=== PATIENT | male | born 1960 | race African-American/Black ===

== ENCOUNTER → 2021-02-08 10:14 | Outpatient (CLI) | payer SELFPAY ==
--- NOTE | 2021-02-08 10:16 | CT_ITS ---
PROCEDURE: CT HEART W CALCIUM SCORE CLINICAL HISTORY: diabetes COMPARISON: No exams were available for comparison TECHNIQUE: Axial images obtained with sagittal and coronal reformats. All CT scans at the facility use one or more dose reduction, viz: automated exposure control, ma/kV adjustment per patient size (including targeted exams where dose is matched to indication, i.e. head), or iterative reconstruction technique. FINDINGS: Coronary artery calcium score is forty. Mild calcific plaque burden with moderate cardiovascular disease risk incidental note is made calcified node in the subcarinal region. There are degenerative changes in the thoracic spine. IMPRESSION: Mild calcific plaque burden with moderate cardiovascular disease risk Dictated by: Maciel English MD 03/04/2021 18:56 Maciel English MD in [place] 03/04/2021 18:56
== END ==
PROVIDERS: PCP Family Medicine; Visit Provider Internal Medicine Cardiovascular Disease
DX: Z13.6 Encounter for screening for cardiovascular disorders (principal); E10.9 Type 1 diabetes mellitus without complications
CPT/HCPCS: 75571

== ENCOUNTER → 2021-02-08 10:42 | Outpatient (CLI) | payer OTHER, SELFPAY ==
--- NOTE | 2021-02-08 10:42 | CA_ITS ---
APPROVED REPORT EXAM: Comprehensive 2D, Doppler, and color-flow Echocardiogram Station Tender: Raven Tucker RT(R) Ht: 6 ft 0 in Wt: 270lbs BSA: 2.42 BP: 135/68 mmHg Indications: SOA, HTN, DM, MORROW, hyperlipidemia, TDS due to body habitus 2D Dimensions LVOT 2.14 cm (M/F) 1.5-2.5 M-Mode Dimensions RVDd 2.37 cm (0.9-2.6) LA Diam 2.87 cm (1.9-4.0) LVDd 5.50 cm (3.5-5.7) Ao Diam 2.99 cm (2.0-3.7) LVDs 3.81 cm (3.5-5.7) IVSd 0.88 cm (0.6-1.1) PWd 0.68 cm (0.6-1.1) EF (Teich) 57.70% FS 30.70% EDV (Teich) 147.40 mL ESV (Teich) 62.30 mL Left Ventricle Left atrium is mildly enlarged, left ventricle is normal size, mild concentric left ventricular hypertrophy, visually estimated ejection fraction 55% with no regional wall motion abnormality, diastolic parameters are inconclusive. Right Ventricle Right atrium and right ventricle are normal size and contractility. Aortic valve is grossly normal, there is no aortic stenosis or aortic insufficiency. Mitral Valve Mitral valve is grossly normal, there is trace mitral regurgitation. Tricuspid Valve Tricuspid valve is grossly normal, there is trace tricuspid regurgitation. Tricuspid regurgitation jet velocity is inadequate for calculation of the right ventricular systolic pressure. Pulmonic Valve Pulmonic valve is poorly visualized. Great Vessels Aortic root is normal size. Pericardium No significant pericardial effusion noted. Conclusion 1. Normal left ventricular size, preserved left ventricular systolic function, visually estimated ejection fraction 55% with no regional wall motion abnormality, diastolic parameters are inconclusive. 2. Trace mitral and tricuspid regurgitation. 3. No significant pericardial effusion noted. Electronically signed by : Mark Hebert, 02/09/2021 15:22:39
--- NOTE | 2021-02-08 11:18 | PC.NURSE ---
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
== END ==
PROVIDERS: PCP Family Medicine; Visit Provider Internal Medicine Cardiovascular Disease
DX: R06.00 Dyspnea, unspecified (principal); I10 Essential (primary) hypertension; E78.49 Other hyperlipidemia; E10.9 Type 1 diabetes mellitus without complications; Z79.4 Long term (current) use of insulin
CPT/HCPCS: 93306

== ENCOUNTER → 2022-12-21 10:27 | Outpatient (CLI) | payer OTHER, SELFPAY ==
[2022-12-21 12:09] LABS: NT Pro Brain Natriuretic Pep. 137 pg/mL (0-125)
== END ==
PROVIDERS: PCP Family Medicine; Visit Provider Internal Medicine Cardiovascular Disease
DX: I25.10 Atherosclerotic heart disease of native coronary artery without angina pectoris (principal); R79.89 Other specified abnormal findings of blood chemistry
CPT/HCPCS: 36415; 83880

== ENCOUNTER 2024-10-14 17:34 | Observation (INO) | payer OTHER, SELFPAY ==
--- NOTE | 2024-10-14 17:34 | CT_ITS ---
PROCEDURE INFORMATION: Exam: CT Cervical Spine Without Contrast Exam date and time: 10/14/2024 6:42 PM Age: 64 years old Clinical indication: Weakness; Additional info: Found down , hypoglycemic confused, TECHNIQUE: Imaging protocol: Computed tomography of the cervical spine without contrast. Radiation optimization: All CT scans at this facility use at least one of these dose optimization techniques: automated exposure control; mA and/or kV adjustment per patient size (includes targeted exams where dose is matched to clinical indication); or iterative reconstruction. COMPARISON: CT HEAD/BRAIN WO CON 10/14/2024 6:42 PM FINDINGS: Bones: Cervical vertebrae normal in height. No acute fracture. Right lateral tilt. Straightening of normal cervical lordosis. Maintained craniocervical junction. Multilevel degenerative changes. No severe neural foraminal narrowing or spinal canal stenosis. Lungs: Lung apices are normal. Vasculature: Bilateral carotid artery calcifications. Soft tissues: Unremarkable. IMPRESSION: No acute osseous findings.
--- NOTE | 2024-10-14 17:34 | CT_ITS ---
PROCEDURE INFORMATION: Exam: CTA Neck With Contrast Exam date and time: 10/14/2024 6:45 PM Age: 64 years old Clinical indication: Dizziness and giddiness; Additional info: Found down , hypoglycemic confused, TECHNIQUE: Imaging protocol: Computed tomographic angiography of the neck with contrast. Exam focused on the cervical segments of the vasculature. 3D rendering (Not supervised by radiologist): MIP and/or 3D reconstructed images were created by the technologist. Radiation optimization: All CT scans at this facility use at least one of these dose optimization techniques: automated exposure control; mA and/or kV adjustment per patient size (includes targeted exams where dose is matched to clinical indication); or iterative reconstruction. Contrast material: ISO 370; Contrast volume: 80 ml; Contrast route: INTRAVENOUS (IV); COMPARISON: CT CERVICAL SPINE WO CON 10/14/2024 6:42 PM FINDINGS: Right common carotid artery: Mild atherosclerotic narrowing of the distal segment and carotid bulb without flow-limiting stenosis. No dissection or occlusion. Right internal carotid artery: Mild stenosis of the proximal cervical segment. No dissection or occlusion. Right external carotid artery: Atherosclerosis at the origin without significant stenosis. Left common carotid artery: Mild atherosclerotic narrowing of the distal segment and carotid bulb without flow-limiting stenosis. No dissection or occlusion. Left internal carotid artery: Mild stenosis of the proximal cervical segment. No dissection or occlusion. Left external carotid artery: Mild stenosis at the origin. Right vertebral artery: Mild atherosclerosis of the origin without flow-limiting stenosis. No dissection or occlusion. Left vertebral artery: Dense calcified atherosclerosis at the origin contributing to probable severe stenosis. No dissection or occlusion. Soft tissues: No significant soft tissue swelling. Bones/joints: No acute fracture. Cervical spondylosis. IMPRESSION: 1. Mild bilateral internal carotid artery proximal cervical segment stenosis. 2. Dense calcified atherosclerosis at the left vertebral artery origin contributing to probable severe stenosis. REFERENCES: NASCET CRITERIA. The degree of stenosis in the cervical segment of the internal carotid artery is based on NASCET criteria. Normal is no stenosis. Mild is less than 50% stenosis. Moderate is 50-69% stenosis. Severe is 70% to 99% stenosis. Total occlusion is no detectable patent lumen.
--- NOTE | 2024-10-14 17:34 | CT_ITS ---
PROCEDURE INFORMATION: Exam: CTA Head With Contrast, Arteriography Exam date and time: 10/14/2024 6:45 PM Age: 64 years old Clinical indication: Dizziness and giddiness; Additional info: Found down , hypoglycemic confused, TECHNIQUE: Imaging protocol: Computed tomographic angiography of the head with contrast. Exam focused on the arteries. 3D rendering (Not supervised by radiologist): MIP and/or 3D reconstructed images were created by the technologist. Radiation optimization: All CT scans at this facility use at least one of these dose optimization techniques: automated exposure control; mA and/or kV adjustment per patient size (includes targeted exams where dose is matched to clinical indication); or iterative reconstruction. Contrast material: ISO 370; Contrast volume: 80 ml; Contrast route: INTRAVENOUS (IV); COMPARISON: CT ANGIO HEAD 10/14/2024 6:45 PM FINDINGS: ANTERIOR CIRCULATION: Right internal carotid artery: Mild atherosclerotic narrowing of the intracranial segment without flow-limiting stenosis. No aneurysm. Right middle cerebral artery: No occlusion or significant stenosis. No aneurysm. Right anterior cerebral artery: No occlusion or significant stenosis. No aneurysm. Left internal carotid artery: Mild atherosclerotic narrowing of the intracranial segment without flow-limiting stenosis. No aneurysm. Left middle cerebral artery: No occlusion or significant stenosis. No aneurysm. Left anterior cerebral artery: No occlusion or significant stenosis. No aneurysm. POSTERIOR CIRCULATION: Right vertebral artery: No occlusion or significant stenosis. No aneurysm. Left vertebral artery: No occlusion or significant stenosis. No aneurysm. Basilar artery: No occlusion or significant stenosis. No aneurysm. Right posterior cerebral artery: No occlusion or significant stenosis. No aneurysm. Left posterior cerebral artery: No occlusion or significant stenosis. No aneurysm. Brain: No definite mass, mass effect, or midline shift. Cerebral ventricles: No ventriculomegaly. Bones/joints: Unremarkable. No acute fracture. Soft tissues: Unremarkable. IMPRESSION: No large vessel stenosis or occlusion.
--- NOTE | 2024-10-14 17:34 | CT_ITS ---
PROCEDURE INFORMATION: Exam: CTA Chest With Contrast Exam date and time: 10/14/2024 6:48 PM Age: 64 years old Clinical indication: Other: Hypoglycemic; Additional info: Found down , hypoglycemic confused, TECHNIQUE: Imaging protocol: Computed tomographic angiography of the chest with contrast. Exam focused on the arteries. 3D rendering (Not supervised by radiologist): MIP and/or 3D reconstructed images were created by the technologist. Radiation optimization: All CT scans at this facility use at least one of these dose optimization techniques: automated exposure control; mA and/or kV adjustment per patient size (includes targeted exams where dose is matched to clinical indication); or iterative reconstruction. Contrast material: ISOVUE 370; Contrast volume: 80 ml; Contrast route: INTRAVENOUS (IV); COMPARISON: CT ANGIO ABDOMEN PELVIS 10/14/2024 6:48 PM FINDINGS: Pulmonary arteries: There is suboptimal opacification of pulmonary arteries due to contrast bolus timing. Focal embolus involving the right middle and lower lobe pulmonary arteries. Aorta: Unremarkable. No aortic aneurysm. No aortic dissection. Lungs: Atelectasis posteriorly right upper lobe. Minimal biapical pleural reactive changes. Pleural spaces: Unremarkable. No pneumothorax. No pleural effusion. Heart: Unremarkable. No cardiomegaly. No pericardial effusion. Heart RV/LV ratio: : 0.81 Lymph nodes: Unremarkable. No enlarged lymph nodes. Liver: Decreased density throughout the liver compatible with hepatic steatosis. Bones/joints: Unremarkable. No acute fracture. Soft tissues: Unremarkable. IMPRESSION: 1. Focal embolus involving the right middle and lower lobe pulmonary arteries. 2. Atelectasis posteriorly right upper lobe. Minimal biapical pleural reactive changes. 3. A call has been placed the referring physician at which time an addended report will be issued.
--- NOTE | 2024-10-14 17:34 | CT_ITS ---
PROCEDURE INFORMATION: Exam: CT Head Without Contrast Exam date and time: 10/14/2024 6:42 PM Age: 64 years old Clinical indication: Altered mental status/memory loss; Additional info: Found down , hypoglycemic confused, TECHNIQUE: Imaging protocol: Computed tomography of the head without contrast. Radiation optimization: All CT scans at this facility use at least one of these dose optimization techniques: automated exposure control; mA and/or kV adjustment per patient size (includes targeted exams where dose is matched to clinical indication); or iterative reconstruction. COMPARISON: CT CERVICAL SPINE WO CON 10/14/2024 6:42 PM FINDINGS: Brain: No acute intracranial hemorrhage, midline shift or mass effect. Normal hypodensities within the cerebral white matter most consistent with chronic small-vessel ischemic changes. Cerebral ventricles: No ventriculomegaly. Paranasal sinuses: Mild scattered mucosal thickening Mastoid air cells: Visualized mastoid air cells are well aerated. Bones: Unremarkable. No acute fracture. Soft tissues: Unremarkable. IMPRESSION: No acute intracranial findings.
--- NOTE | 2024-10-14 17:36 | ECG_ITS ---
APPROVED REPORT Exam: Resting ECG HR:86 bpm ECG Measurements Heart Rate 86 AXES WI 170 P 78 QRSd 102 QRS 78 QT 376 T 63 QTc 420 Conclusion SINUS RHYTHM POSSIBLE RIGHT ATRIAL ENLARGEMENT [0.25mV P-WAVE] Electronically signed by : JOSH RODRIGUEZ, 10/14/2024 23:50:24
--- NOTE | 2024-10-14 17:36 | CT_ITS ---
PROCEDURE INFORMATION: Exam: CTA Abdomen and Pelvis With Contrast Exam date and time: 10/14/2024 6:48 PM Age: 64 years old Clinical indication: Other: Hypoglycemic; Additional info: Found down , hypoglycemic confused, TECHNIQUE: Imaging protocol: Computed tomographic angiography of the abdomen and pelvis with contrast. Exam focused on the arteries. 3D rendering (Not supervised by radiologist): MIP and/or 3D reconstructed images were created by the technologist. Radiation optimization: All CT scans at this facility use at least one of these dose optimization techniques: automated exposure control; mA and/or kV adjustment per patient size (includes targeted exams where dose is matched to clinical indication); or iterative reconstruction. Contrast material: ISOVUE 370; Contrast volume: 80 ml; Contrast route: INTRAVENOUS (IV); COMPARISON: No relevant prior studies available. FINDINGS: Aorta: No aortic aneurysm. No aortic dissection. Celiac trunk and mesenteric arteries: No occlusion or significant stenosis. Renal arteries: No occlusion or significant stenosis. Right iliac arteries: No occlusion or significant stenosis. Left iliac arteries: No occlusion or significant stenosis. Liver: Decreased density throughout the liver compatible with hepatic steatosis. Gallbladder and biliary ducts: Gallbladder unremarkable Pancreas: Pancreas unremarkable small hiatal hernia Spleen: The spleen is unremarkable. Splenic granulomas Adrenal glands: Adrenal glands unremarkable. Kidneys and ureters: No hydronephrosis. Stomach and bowel: Mild gastric wall thickening. Findings may be secondary to incomplete distension versus gastritis. Mild-moderate stool burden Appendix: No evidence of appendicitis. Intraperitoneal space: Unremarkable. No free air. No significant fluid collection. Lymph nodes: Unremarkable. No enlarged lymph nodes. Urinary bladder: Unremarkable. No mass. Reproductive: Unremarkable as visualized. Bones/joints: No acute fracture. Soft tissues: Unremarkable. IMPRESSION: No evidence of acute abnormality.
[2024-10-14 17:47] LABS: VBG Base Excess 5.2 mmol/L (-2.4-2.3); VBG HCO3 29.4 mmol/L (23-30); VBG Oxygen Saturation 97.2 % (50-70); VBG PCO2 44.7 mmol/L (35-51); VBG PH 7.44 mmol/L (7.31-7.41); VBG PO2 92.8 mmol/L (28-40); VBG Total CO2 30.8 mmol/L (23-27)
[2024-10-14 17:49] VITALS: PULSE 86; RESP 24; TEMP 36.9; O2SAT 98; BMI 33.5
[2024-10-14 17:50] LABS: Basophils # 0.1 K/mm3 (0-0.2); Basophils % 0.4 % (0.1-2.0); Eosinophils # 0.2 K/mm3 (0.0-0.4); Eosinophils % 1.3 % (0.1-12.0); Hematocrit 45.1 % (42.0-52.0); Hemoglobin 14.4 g/dL (14.1-18.0); Lymphocytes # 0.8 K/mm3 (0.7-4.5); Lymphocytes % 5.2 % (10-50); Mean Corpuscular HGB Conc 31.8 g/dL (31.8-35.4); Mean Corpuscular Hemoglobin 32.6 pg (27.0-31.2); Mean Corpuscular Volume 102.4 fl (80-94); Monocytes # 0.5 K/mm3 (0.1-1.0); Monocytes % 3.4 % (1.7-9.3); Neutrophils # 13.8 K/mm3 (1.8-7.8); Neutrophils % 89.8 % (37.0-80.0); Platelet Count 469 K/mm3 (142-424); Red Blood Count 4.41 M/mm3 (4.60-6.20); Red Cell Distribution Width 13.8 % (11.5-17.5); White Blood Count 15.4 K/mm3 (4.8-10.8)
[2024-10-14 17:57] LABS: MANUAL DIFFERENTIAL MANUAL DIFFERENTIAL (MANUAL DIFF)
--- NOTE | 2024-10-14 17:58 | HMH.EDGENADL ---
Discharge Plan Disposition Patient Disposition: Admitted Chief Complaint: Hyper/Hypoglycemia Clinical Impressions Clinical Impression: Pulmonary emboli, Hypoglycemia Discharge ED Provider: Palomo Bedoya General Adult HPI General Chief complaint: Hyper/Hypoglycemia Stated complaint: hypoglycemia Time Seen by Provider: 10/14/24 17:39 Mode of Arrival: EMS Source of Information: Patient and EMS Limitations: No Limitations Description of Symptoms (Recalled from ER Triage Doc. by RN): EMS reports they were called out as a wellfare check because family could not reach him. pts last known norm was sometime last night when family spoke to him. on EMS arrival pts FSBG was 50. pt had snoring respirations and was placed on a NR. pts FSBG read low upon arrival here. Upon arrival pt was on a nonrebreather and was minimally responsive but he was able to give a thumbs up on command. pt received glucagon GAS WORKER. After establishing IV access and giving an amp of D50 pt became A&O x4. pt states he does not recall the events. pts states he has no complaints and feels at his baseline. pt denies any pain. pt states he is a daily 2-3 beer drinker. History of Present Illness HPI narrative: Please note that above description of symptoms, in this electronic medical record under categorization of recalled from ER triage doctor by RN are reflective of an initial nursing assessment, however, is not reflective of my full history and physical exam that was personally taken and clarified. Consequentially, this preceding description of symptoms, which may include the patient's categorized chief complaint in the EMR, do not reflect my personal clinical impression, and the ultimate description of history of present illness and patient stated complaints should be deferred to this section of the note. Unless stated otherwise or congruent with this section of the note, additional signs, symptoms, or incongruence should be interpreted as inaccurate with my clinical impression. Related Data Home Medications ?Medication ?Instructions ?Recorded ?Confirmed amlodipine 5 mg-valsartan 160 mg 1 tab PO DAILY 01/26/21 02/01/23 tablet insulin detemir U-100 100 unit/mL 45 unit SQ DAILY 01/26/21 02/01/23 (3 mL) subcutaneous pen metolazone 2.5 mg tablet 2.5 mg PO DAILY 01/26/21 02/01/23 metoprolol succinate 100 mg 100 mg PO DAILY 01/26/21 02/01/23 tablet,extended release 24 hr niacin 500 mg tablet,extended 500 mg PO DAILY 01/26/21 02/01/23 release potassium chloride 20 mEq 20 meq PO TID 01/26/21 02/01/23 tablet,extended release(part/cryst) rosuvastatin 40 mg tablet 40 mg PO DAILY 01/26/21 02/01/23 furosemide 20 mg tablet 20 mg PO DAILY 12/21/22 02/01/23 Previous Rx's ?Medication ?Instructions ?Recorded aspirin 81 mg tablet,delayed 81 mg PO DAILY #30 tabs 05/05/21 release (Adult Low Dose Aspirin) triamterene 37.5 See Rx Instructions .Route 12/12/22 mg-hydrochlorothiazide 25 mg tablet .COMPLEX #90 tabs Allergies Allergy/AdvReac Type Severity Reaction Status Date / Time NO KNOWN ALLERGIES Allergy Other Uncoded 10/14/24 18:02 [facility] Disclaimer: The information contained in this section may have been updated after the patient was seen, as this information can be updated by other users. Medical History Coronary artery disease Daytime somnolence Diabetes type I Dyspnea HLD (hyperlipidemia) HTN (hypertension) Restless sleeper Social History Smoking Status: Never smoker alcohol intake: current alcohol intake frequency: holidays/special occasions only substance use type: denies use current occupational status: employed and disabled Travel in the last 8 weeks: Inside the [place] Other Medical History Have you received the Pneumonia Vaccine: No ROS Obtained: Yes All systems reviewed & no additional complaints except as documented Physical Exam General General appearance: alert, in distress and obese Head Head exam: atraumatic and normocephalic Eye Eye exam: Present normal appearance, PERRL and EOMI ENT ENT exam: Present mucous membranes dry Neck Neck exam: Present normal inspection, full ROM and trachea midline Respiratory Respiratory exam: Present wheezes (Inspiratory wheezes bilateral lower lobes); Absent respiratory distress, stridor, accessory muscle use or prolonged expiratory phase Cardiovascular Cardiovascular exam: Present normal rhythm, tachycardia and other (Pulses equal symmetric in upper and lower extremities) Abdominal Exam Abdominal exam: Present soft; Absent distention, tenderness, guarding, rebound or pulsatile mass Extremities Exam Extremities exam: Present edema (2+ lower extremity pitting edema) Neurological Exam Neurological exam: Present alert, oriented X3 and CN II-XII intact; Absent motor sensory deficit Skin Skin exam: Present warm and dry; Absent diaphoresis or erythema Medical Decision Making Medical Records Medical records reviewed: Yes I reviewed the patient's medical records. Screening: Per USPSTF and CDC recommendations, given the prevalence of disease in our region, it is our hospital?s policy to screen for HIV and viral Hepatitis for all patients aged 18 and over and those with ongoing risk factors. Jamel Inquiry Pt receiving controlled substance: No Jamel was queried for this patient: No Vital Signs: 10/14/24 17:49 Temperature 98.5 F Temperature Source Oral Pulse Rate [Left] 86 Respiratory Rate 24 Blood Pressure Source [Right Arm] Automatic Cuff Blood Pressure Position [Right Arm] Sitting 02 Sat by Pulse Oximetry 98 Oxygen Delivery Method Room Air Lab Data Lab Results 10/14/24 17:36: WBC 15.4 H, RBC 4.41 L, Hgb 14.4, Hct 45.1, MCV 102.4 H, MCH 32.6 H, MCHC 31.8, RDW 13.8, Plt Count 469 H, MPV 7.0 L, Neut % (Auto) 89.8 H, Lymph % (Auto) 5.2 L, Barren % (Auto) 3.4, Eos % (Auto) 1.3, Baso % (Auto) 0.4, Neut # (Auto) 13.8 H, Lymph # (Auto) 0.8, Barren # (Auto) 0.5, Eos # (Auto) 0.2, Baso # (Auto) 0.1, Total Counted 100, Neutrophils % (Manual) 91 H, Lymphocytes % (Manual) 5 L, Monocytes % (Manual) 4, Platelet Estimate Normal, Anisocytosis 2+, Microcytosis 1+, Macrocytosis 2+, Target Cells 1+, PT 9.8 L, INR 0.86 L, APTT 23.7 10/14/24 17:36: APTT 24.5 L, Sodium 136, Potassium 3.5, Chloride 100, Carbon Dioxide 30, Anion Gap 9.5, BUN 12, Creatinine 0.80, Estimated Creat Clear 123, Estimated GFR 98, Est GFR ( Amer) 118, Glucose 175 H, Hemoglobin A1c 6.5 H, Calcium 9.0, Magnesium 1.7, Total Bilirubin 0.7, AST 76 H, ALT 47, Alkaline Phosphatase 105, Total Creatine Kinase 248 H, Troponin I < 0.01, NT-Pro-B Natriuret Pep 813 H, Total Protein 5.7 L, Albumin 3.3 L, Globulin 2.4, Albumin/Globulin Ratio 1.4, Lipase 39, TSH 0.92, Thyroxine (T4) 6.3, Salicylates < 1.0 L, Acetaminophen < 10 L, Plasma/Serum Alcohol 15 H, Acetone Level None detected, HIV 1&2 Antibody Rapid Nonreactive 10/14/24 17:37: VBG pH 7.44 H, VBG pCO2 44.7, VBG pO2 92.8 H, VBG HCO3 29.4, VBG Total CO2 30.8 H, VBG O2 Saturation 97.2 H, VBG Base Excess 5.2 H, VBG Lactic Acid 2.0 10/14/24 17:48: Blood Type B Positive, Antibody Screen Negative 10/14/24 17:58: Lactate 1.3 10/14/24 18:16: Urine Color Yellow, Urine Appearance Clear, Urine pH 6.5, Ur Specific [place] 1.020, Urine Protein Negative, Urine Glucose (UA) 1+, Urine Ketones Trace, Urine Blood Negative, Urine Nitrate Negative, Urine Bilirubin Negative, Urine Urobilinogen 1.0, Ur Leukocyte Esterase Negative, Urine RBC Occasional, Urine WBC 3-5, Ur Squamous Epith Cells 20-50, Urine Bacteria 2+, Urine Mucus 1+, Urine Opiates Screen Negative, Urine Methadone Screen Negative, Ur Barbituates Screen Negative, Ur Phencyclidine Scrn Negative, Ur Amphetamines Screen Negative, U Benzodiazepines Scrn Negative, Urine Cocaine Screen Negative, U Marijuana (THC) Screen Negative 10/14/24 19:40: SARS-CoV-2 (PCR) Not detected, Influenza A Untype (PCR) Not detected, Influenza Type B (PCR) Not detected 10/14/24 17:36 10/14/24 17:36 Orders (Tests/Meds): ED MEDICATIONS Generic Name Dose Route Start Last Admin Trade Name Freq PRN Reason Stop Dose Admin Dextrose/Water 500 mls @ 100 mls/hr 10/14/24 18:00 Dextrose 10% In Water 500ml IV 11/13/24 17:59 .Q5H HUANG Heparin Sodium/Dextrose 500 mls @ 40 mls/hr 10/14/24 20:15 10/14/24 20:13 Heparin 25,000 Units In D5w 500ml Premix IV 11/13/24 20:14 40 mls/hr .[id number] HUANG Administration 2,000 UNITS/HR Miscellaneous 1 each 10/14/24 17:45 Vancomycin Consult Request NOTAPPLIC 11/13/24 17:44 [facility] Miscellaneous 1 each 10/14/24 19:45 Heparin Drip Consult NOTAPPLIC 11/13/24 19:44 [facility] Discontinued Medications Generic Name Dose Route Start Last Admin Trade Name Freq PRN Reason Stop Dose Admin Heparin Sodium (Porcine) 9,200 unit 10/14/24 20:15 10/14/24 20:14 Heparin Sodium 5,000 Unit/Ml Vial IV 10/14/24 20:16 9,200 unit ONCE ONE Administration Ampicillin Sodium/Sulbactam 100 mls @ 200 mls/hr 10/14/24 17:38 10/14/24 18:39 Sodium 3 gm/ Sodium Chloride IV 10/14/24 17:39 200 mls/hr ONCE ONE Administration Lactated Ringer's 2,000 mls @ 1,000 mls/hr 10/14/24 17:58 10/14/24 18:33 Lactated Ringer's 1000 Ml Bag IV 10/14/24 19:57 1,000 mls/hr .Q2H ONE Administration Vancomycin HCl 2,250 mg/ 250 mls @ 125 mls/hr 10/14/24 18:15 10/14/24 20:07 Sodium Chloride IV 10/14/24 20:14 125 mls/hr ONCE ONE Administration Iopamidol 160 ml 10/14/24 18:48 10/14/24 18:49 Iopamidol-370 (76%);100ml Bottle IV 10/14/24 18:49 160 ml ONCE ONE Administration Sodium Chloride 10 ml 10/14/24 18:48 10/14/24 18:49 Sodium Chloride 0.9% 10ml Syr (Rad Only) IV 10/14/24 18:49 10 ml ONCE ONE Administration Sodium Chloride 50 ml 10/14/24 18:48 10/14/24 18:49 0.9 % Sodium Chloride 50 Ml Vial IV 10/14/24 18:49 50 ml ONCE ONE Administration Sodium Chloride 50 ml 10/14/24 18:48 10/14/24 18:49 0.9 % Sodium Chloride 50 Ml Vial IV 10/14/24 18:49 50 ml ONCE ONE Administration ORDERS Category Date Time Status Type and Screen Stat BBK 10/14/24 17:[address] angio abdomen pelvis Stat Cat Scan 10/14/24 17:[address] angio chest PE protocol Stat Cat Scan 10/14/24 17:[address] angio head Stat Cat Scan 10/14/24 17:[address] angio neck Stat Cat Scan 10/14/24 17:[address] cervical spine wo con Stat Cat Scan 10/14/24 17:[address] head/brain wo con Stat Cat Scan 10/14/24 17:34 Completed Acetaminophen Stat Lab 10/14/24 17:36 Completed Acetone, Serum (Rapid) Stat Lab 10/14/24 17:36 Completed CK [Creatine Kinase] Stat Lab 10/14/24 17:36 Completed Complete Blood Count Auto Diff Stat Lab 10/14/24 17:36 Completed Comprehensive Metabolic Panel Stat Lab 10/14/24 17:36 Completed Drug Screen,Urine Stat Lab 10/14/24 18:16 Completed Ethanol [Ethyl Alcohol] Stat Lab 10/14/24 17:36 Completed HIV (1&2) Antibody Rapid Stat Lab 10/14/24 17:36 Completed Hemoglobin A1C Stat Lab 10/14/24 17:36 Completed Hep C Ab with Reflex to RNA Stat Lab 10/14/24 17:36 Received Lactic Acid Stat Lab 10/14/24 17:58 Completed Lipase Stat Lab 10/14/24 17:36 Completed Magnesium Stat Lab 10/14/24 17:36 Completed NT Pro Brain Natriuretic Pep. Stat Lab 10/14/24 17:36 Completed PT INR [Prothrombin Time INR] Stat Lab 10/14/24 17:36 Completed PTT Heparin (inpatient only) Stat Lab 10/14/24 17:36 Completed PTT [Activated Partial Thrombo Time] Stat Lab 10/14/24 17:36 Completed Rapid PCR Covid and Flu A/B Stat Lab 10/14/24 19:40 Completed Salicylate Stat Lab 10/14/24 17:36 Completed T4 (Thyroxine) Stat Lab 10/14/24 17:36 Completed TSH [Thyroid Stimulating Hormone] Stat Lab 10/14/24 17:36 Completed Troponin I Q3H Lab 10/14/24 20:45 Ordered Troponin I Q3H Lab 10/14/24 23:45 Ordered Troponin I Stat Lab 10/14/24 17:36 Completed Urinalysis and Microscopic Stat Lab 10/14/24 18:16 Completed Blood Culture Stat Micro 10/14/24 17:58 Received Urine Culture Stat Micro 10/14/24 18:16 Received Venous Blood Gas Stat RT 10/14/24 17:37 Completed Medical Decision Narrative: 64-year-old male history of type 1 diabetes and CAD, hypertension, hyperlipidemia presenting found down. Patient's family was unable to get a hold of him today, 10/14, so called well check on him. Please arrive, patient was found down, largely unresponsive. EMS was called. On arrival, fingerstick blood glucose for EMS was read as low. Unable to obtain IV access, so gave him 1 mg glucagon IM with mild improvement in mental status. Brought patient to the emergency department. On arrival, patient appears ill. Diaphoretic, pale, pulse 95-100. When rolling into the emergency department, patient able to follow commands. Asked to give thumbs up, was able to do so immediately. Pupils 3 mm and reactive bilaterally. No evidence of scleral icterus. Mucous membranes are dry. Patient oriented to person and situation. Has no complaints. States that he does not have any chest pain, headache, vision changes, nausea or vomiting,, abdominal pain, but he also has no recollection of how he ended up on the ground. States that the last thing he remembers is yesterday. Patient states that he does drink daily states that he last drank 24 hours ago if not a little longer. Denies drug use. History was obtained via conversation with patient, EMS, family. On arrival, patient hemodynamically stable, alert, oriented to person and situation, GCS 15, moving all extremities spontaneously, pupils equal and reactive to light. Full physical exam performed and significant for 64-year-old male who is very ill-appearing. Diaphoretic, pale, borderline tachycardic. Inferior wheezes bilaterally. Following commands. Strength is equal in upper and lower extremities. Pulses equal and symmetric in upper and lower extremities. Abdomen soft, nontender, nondistended. Cardiac exam normal otherwise. Differential includes metabolic abnormality, endocrinologic abnormality, intracranial bleed, accidental insulin overdose, purposeful insulin overdose, alcohol withdrawal seizure, other intoxication, ischemic stroke, seizure disorder, among others. Patient placed on continuous cardiac monitoring and continuous pulse ox with initial blood pressure 166/95, heart rate 86, saturation 8% on room air. Independent interpretation of EKG shows sinus rhythm with no ST or T wave changes concerning for acute ischemia. VA 170, QRS 102, QTc 420. Normal axis.. 2 ultrasound-guided IVs were placed due to difficult IV access. Patient was given D50 bolus for symptomatic management and correction of underlying abnormalities. Also started on D10 drip at 100 mL/h. Workup independently interpreted and significant for leukocytosis 15,000 with neutrophilia. Coags within normal limits. VBG largely nonactionable. Lactate negative. Chemistry nonactionable with normal kidney function. A1c 6.5. CK mildly elevated at 248. Troponin negative, BNP elevated at 813. Urinalysis nonactionable.. On independent interpretation of imaging, CT angiogram of the chest with right middle and lower lobes. RV to LV ratio 0.8. No acute intracranial hemorrhage, no acute vascular abnormality of the head or neck. See radiology read for full review of final results. Patient started on heparin drip given elevated BNP and right sided pulmonary emboli. COVID swab obtained for transfer to the [facility]. this was negative. Because patient high risk for clinical decompensation if discharged, deemed appropriate for transfer and inpatient admission. Results were relayed to patient who voiced understanding and patient was agreeable to transfer, inpatient admission, and management. [facility] states that they had 4 more hours before they are able to accept patient for transfer. Because of this, hospital medicine was contacted for further evaluation. To be admitted. Product Distribution Specialist disclaimer Much of this encounter note is an electronic java developer architect spoken language to printed text. Electronic java developer architect of the spoken language may permit errors. Although I have reviewed the note, some errors may still exist. Critical Care Critical Care Time Critical Care Time: Yes (Pulmonary, endocrine) Attestation: On 10/14/24, the high probability of a clinically significant, sudden or life threatening deterioration of the following system(s) required my full and direct attention, intervention and personal management. The time I documented below is in addition to time spent performing reported procedures but includes the following listed in this critical care notation. Total Time Total Critical Care Time: 60
[2024-10-14 18:00] LABS: Magnesium 1.7 mg/dl (1.6-2.3)
[2024-10-14 18:05] LABS: Creatine Kinase 248 U/L (55-170)
[2024-10-14 18:06] LABS: Ethyl Alcohol 15 mg/dl (0-10)
[2024-10-14 18:08] LABS: NT Pro Brain Natriuretic Pep. 813 pg/mL (0-125)
[2024-10-14 18:09] LABS: Acetaminophen < 10 ug/ml (10-30); Acetone, Serum (Rapid) None Detected (None Detect)
[2024-10-14 18:13] LABS: Activated Partial Thrombo Time 23.7 seconds (22.8-30.6)
[2024-10-14 18:16] LABS: INR 0.86 (0.9-1.1); Prothrombin Time 9.8 seconds (10.1-12.5)
[2024-10-14 18:20] LABS: Lactic Acid 1.3 mmol/L (0.7-2.1)
[2024-10-14 18:21] LABS: Appearance,Urine CLEAR (Clear); Bilirubin,Urine Negative (Negative); Blood, Urine Negative (Negative); Color,Urine YELLOW (Yellow); Glucose,Urine (UA) 1+ (Negative); Ketones,Urine TRACE (Negative); Leukocyte Esterase,Urine Negative (Negative); Nitrate,Urine Negative (Negative); PH,Urine 6.5 (5.0-8.5); Protein,Urine Negative (Negative)
[2024-10-14 18:23] LABS: Microscopic, Urine URINE MICROSCOPIC (MICROSCOPIC)
[2024-10-14 18:23] LABS: Anisocytosis 2+; Lymphocytes % 5 % (10-50); Macrocytosis 2+; Microcytosis 1+; Monocytes % 4 % (2-9); Neutrophils % 91 % (42-76); Platelet Estimate Normal; Total Cells Counted 100
[2024-10-14 18:24] LABS: Albumin Level 3.3 g/dl (3.5-5.0); Chloride 100 mmol/L (98-107); Sodium 136 mmol/L (136-145); Target Cells 1+
[2024-10-14 18:25] LABS: Hemoglobin A1C 6.5 % (4.0-6.0); Potassium 3.5 mmoL/L (3.5-5.1)
[2024-10-14 18:27] LABS: Alanine Aminotransferase 47 U/L (12-78); Albumin/Globulin Ratio 1.4 (1.1-1.8); Alkaline Phosphatase 105 U/L (38-126); Anion Gap 9.5 mEq/L (5-15); Aspartate Amino Transferase 76 U/L (17-59); Bilirubin,Total 0.7 mg/dl (0.2-1.3); Blood Urea Nitrogen 12 mg/dl (9-20); Carbon Dioxide 30 mmol/L (22.0-30.0); Creatinine Clearance Estimated 123 mL/min (50-200); Estimated Glomerular Filt Rate 98 ml/min (>60); GFR (African American) 118 ML/MIN (>60); Globulin 2.4 g/dL (1.3-3.2); Glucose 175 mg/dl (74-100); Lipase 39 U/L (23-300); Total Protein,Serum 5.7 g/dl (6.3-8.2)
[2024-10-14 18:28] LABS: Salicylate < 1.0 mg/dL (2.0-20.0)
[2024-10-14] MEDS: LACTATED RINGERS 1000ML 2,000 ML 1000 ML IV (18:33)
[2024-10-14] MEDS: AMPICILLIN/SULBACTAM 3 GM in 0.9 % SODIUM CHLORIDE 100 ML IV (18:39)
[2024-10-14 18:41] LABS: Amphetamine/Metha Screen,Urine Negative ng/ml (<1000)
[2024-10-14 18:42] LABS: Barbiturates Screen,Urine Negative ng/ml (<200); Benzodiazepines Screen,Urine Negative ng/ml (<200)
[2024-10-14 18:43] LABS: Cannabinoid Screen,Urine Negative ng/ml (<50)
[2024-10-14 18:44] LABS: Cocaine Screen,Urine Negative ng/ml (<300); Methadone Screen,Urine Negative ng/ml (<300)
[2024-10-14 18:45] LABS: Opiate Screen,Urine Negative ng/ml (<300)
[2024-10-14 18:45] LABS: T4 (Thyroxine) 6.3 ug/dl (5.53-11.0)
[2024-10-14 18:46] LABS: Phencyclidine Screen,Urine Negative ng/ml (<25); RBC,Urine Occasional #/hpf (0-3); Squamous Epithelial Cell,Urine 20-50 #/hpf (0-5)
[2024-10-14 18:47] LABS: Bacteria,Urine 2+ /lpf; Mucus,Urine 1+ /lpf
[2024-10-14] MEDS: IOPAMIDOL-370 (76%);100ML BOTTLE 160 ML IV (18:49)
[2024-10-14] MEDS: 0.9 % SODIUM CHLORIDE 50 ML VIAL IV ×2 (18:49)
[2024-10-14] MEDS: SODIUM CHLORIDE 0.9% 10ML SYR (RAD ONLY) 10 ML IV (18:49)
[2024-10-14 18:51] LABS: Troponin I < 0.01 ng/ml (0.00-0.034)
[2024-10-14 18:58] LABS: Thyroid Stimulating Hormone 0.92 uIU/mL (0.465-4.68)
[2024-10-14 19:33] LABS: HIV (1&2) Antibody Rapid NONREACTIVE (NONREACTIVE)
[2024-10-14 19:43] LABS: Coronavirus 19, PCR Not Detected (NotDetected); Influenza A, PCR Not Detected (NotDetected); Influenza B, PCR Not Detected (NotDetected)
[2024-10-14] MEDS: VANCOMYCIN HCL 2,250 MG in 0.9 % SODIUM CHLORIDE 250 ML 125 MG IV (20:07)
[2024-10-14] MEDS: HEPARIN 25,000 UNITS/D5W 500 ML 40 UNIT IV (20:13)
[2024-10-14] MEDS: HEPARIN SODIUM 5,000 UNIT/ML VIAL 9200 UNIT IV (20:14)
[2024-10-14 20:19] LABS: PTT Heparin (inpatient only) 24.5 Seconds (50-75)
--- NOTE | 2024-10-14 20:54 | PC.NURSE ---
[facility] on a 4 hour delay, ED doctor on phone with hospitalist here for admission
[2024-10-14 21:32] VITALS: BP 149/82; PULSE 89; RESP 20; TEMP 36.8; O2SAT 90
[2024-10-14 22:43] LABS: POC Glucose,Bedside 182 (70-110)
[2024-10-14 22:51] LABS: INR 0.99 (0.9-1.1); Prothrombin Time 11.1 seconds (10.1-12.5)
[2024-10-14 22:52] LABS: Troponin I < 0.01 ng/ml (0.00-0.034)
--- NOTE | 2024-10-14 23:09 | P.HP_ITS ---
History of Present Illness *Admission Date: 10/14/24 *Reason for visit:: Syncope with pulmonary embolism right lung *History of present illness: This 64-year-old male who is a [employer] . Was found down at home on a welfare check by EMS. He was brought to the emergency room and cared for by the ER physician.. Patient has returned to being alert and oriented., Findings of that of pulmonary embolism and right middle and lower lobe. Alcohol level slightly elevated, but patient states he drinks up to 3 beers a day. He is a diabetic, and per history he lives alone. [id number] Description of Symptoms (Recalled from ER Triage Doc. by RN): EMS reports they were called out as a wellfare check because family could not reach him. pts last known norm was sometime last night when family spoke to him. on EMS arrival pts FSBG was 50. pt had snoring respirations and was placed on a NR. pts FSBG read low upon arrival here. Upon arrival pt was on a nonrebreather and was minimally responsive but he was able to give a thumbs up on command. pt received glucagon [employer]. After establishing IV access and giving an amp of D50 pt became A&O x4. pt states he does not recall the events. pts states he has no complaints and feels at his baseline. pt denies any pain. pt states he is a daily 2-3 beer drinker. History of Present Illness HPI narrative: Please note that above description of symptoms, in this electronic medical record under categorization of recalled from ER triage doctor by RN are reflective of an initial nursing assessment, however, is not reflective of my full history and physical exam that was personally taken and clarified. Consequentially, this preceding description of symptoms, which may include the patient's categorized chief complaint in the EMR, do not reflect my personal clinical impression, and the ultimate description of history of present illness and patient stated complaints should be deferred to this section of the note. Unless stated otherwise or congruent with this section of the note, additional signs, symptoms, or incongruence should be interpreted as inaccurate with my clinical inpatient Generic Name Dose Route Start Last Admin Trade Name Freq PRN Reason Stop Dose Admin Heparin Sodium (Porcine) 9,200 unit 10/14/24 20:15 10/14/24 20:14 Heparin Sodium 5,000 Unit/Ml Vial IV 10/14/24 20:16 9,200 unit ONCE ONE Administration Ampicillin Sodium/Sulbactam 100 mls @ 200 mls/hr 10/14/24 17:38 10/14/24 18:39 Sodium 3 gm/ Sodium Chloride IV 10/14/24 17:39 200 mls/hr ONCE ONE Administration Lactated Ringer's 2,000 mls @ 1,000 mls/hr 10/14/24 17:58 10/14/24 18:33 Lactated Ringer's 1000 Ml Bag IV 10/14/24 19:57 1,000 mls/hr .Q2H ONE Administration Vancomycin HCl 2,250 mg/ 250 mls @ 125 mls/hr 10/14/24 18:15 10/14/24 20:07 Sodium Chloride IV 10/14/24 20:14 125 mls/hr ONCE ONE Administration Iopamidol 160 ml 10/14/24 18:48 10/14/24 18:49 Iopamidol-370 (76%);100ml Bottle IV 10/14/24 18:49 160 ml ONCE ONE Administration Sodium Chloride 10 ml 10/14/24 18:48 10/14/24 18:49 Sodium Chloride 0.9% 10ml Syr (Rad Only) IV 10/14/24 18:49 10 ml ONCE ONE Administration Sodium Chloride 50 ml 10/14/24 18:48 10/14/24 18:49 0.9 % Sodium Chloride 50 Ml Vial IV 10/14/24 18:49 50 ml ONCE ONE Administration Sodium Chloride 50 ml 10/14/24 18:48 10/14/24 18:49 0.9 % Sodium Chloride 50 Ml Vial IV 10/14/24 18:49 50 ml ONCE ONE Administration ORDERS Category Date Time Status Type and Screen Stat BBK 10/14/24 17:[address] angio abdomen pelvis Stat Cat Scan 10/14/24 17:[address] angio chest PE protocol Stat Cat Scan 10/14/24 17:[address] angio head Stat Cat Scan 10/14/24 17:[address] angio neck Stat Cat Scan 10/14/24 17 7:36 Completed TSH [Thyroid Stimulating Hormone] Stat Lab 10/14/24 17:36 Completed Troponin I Q3H Lab 10/14/24 20:45 Ordered Troponin I Q3H Lab 10/14/24 23:45 Ordered Troponin I Stat Lab 10/14/24 17:36 Completed Urinalysis and Microscopic Stat Lab 10/14/24 18:16 Completed Blood Culture Stat Micro 10/14/24 17:58 Received Urine Culture Stat Micro 10/14/24 18:16 Received Venous Blood Gas Stat RT 10/14/24 17:37 Completed Medical Decision Narrative: 64-year-old male history of type 1 diabetes and CAD, hypertension, hyperlipidemia presenting found down. Patient's family was unable to get a hold of him today, 10/14, so called well check on him. Please arrive, patient was found down, largely unresponsive. EMS was called. On arrival, fingerstick blood glucose for EMS was read as low. Unable to obtain IV access, so gave him 1 mg glucagon IM with mild improvement in mental status. Brought patient to the emergency department. On arrival, patient appears ill. Diaphoretic, pale, pulse 95-100. When rolling into the emergency department, patient able to follow commands. Asked to give thumbs up, was able to do so immediately. Pupil s 3 mm and reactive bilaterally. No evidence of scleral icterus. Mucous membranes are dry. Patient oriented to person and situation. Has no complaints. States that he does not have any chest pain, headache, vision changes, nausea or vomiting,, abdominal pain, but he also has no recollection of how he ended up on the ground. States that the last thing he remembers is yesterday. Patient states that he does drink daily states that he last drank 24 hours ago if not a little longer. Denies drug use. History was obtained via conversation with patient, EMS, family. On arrival, patient hemodynamically stable, alert, oriented to person and situation, GCS 15, moving all extremities spontaneously, pupils equal and reactive to light. Full physical exam performed and significant for 64-year-old male who is very ill-appearing. Diaphoretic, pale, borderline tachycardic. Inferior wheezes bilaterally. Following commands. Strength is equal in upper and lower extremities. Pulses equal and symmetric in upper and lower extremities. Abdomen soft, nontender, nondistended. Cardiac exam normal otherwise. Differential includes metabolic abnormality, endocrinologic abnormality, intracranial bleed, accidental insulin overdose, purposeful insulin overdose, alcohol withdrawal seizure, other intoxication, ischemic stroke, seizure disorder, among others. Patient placed on continuous cardiac monitoring and continuous pulse ox with initial blood pressure 166/95, heart rate 86, saturation 8% on room air. Independent interpretation of EKG shows sinus rhythm with no ST or T wave changes concerning for acute ischemia. AK 170, QRS 102, QTc 420. Normal axis.. 2 ultrasound-guided IVs were placed due to difficult IV access. Patient was given D50 bolus for symptomatic management and correction of underlying abnormalities. Also started on D10 drip at 100 mL/h. Workup independently interpreted and significant for leukocytosis 15,000 with neutrophilia. Coags within normal limits. VBG largely nonactionable. Lactate negative. Chemistry nonactionable with normal kidney function. A1c 6.5. CK mildly elevated at 248. Troponin negative, BNP elevated at 813. Urinalysis nonactionable.. On independent interpretation of imaging, CT angiogram of the chest with right middle and lower lobes. RV to LV ratio 0.8. No acute intracranial hemorrhage, no acute vascular abnormality of the head or neck. See radiology read for full review of final results. Patient started on heparin drip given elevated BNP and right sided pulmonary emboli. COVID swab obtained for transfer to the [facility]. this was negative. Because patient high risk for clinical decompensation if discharged, deemed appropriate for transfer and inpatient admission. Results were relayed to patient who voiced understanding and patient was agreeable to transfer, inpatient admission, and management. [facility] states that they had 4 more hours before they are able to accept patient for transfer. Because of this, hospital medicine was contacted for further evaluation. To be admitted. [facility] Disclaimer: The information contained in this section may have been updated after the patient was seen, as this information can be updated by other users. Medical History Coronary artery disease Daytime somnolence Diabetes type I Dyspnea HLD (hyperlipidemia) HTN (hypertension) Restless sleeper Social History Smoking Status: Never smoker alcohol intake: current alcohol intake frequency: holidays/special occasions only substance use type: denies use current occupational status: employed and disabled Travel in the last 8 weeks: Inside the [place] Other Medical History Have you received the Flu Vaccine for this season: No Have you received the Pneumonia Vaccine: No Meds Home Medications and Allergies Home Medications ?Medication ?Instructions ?Recorded ?Confirmed ?Type amlodipine 5 mg-valsartan 160 mg 1 tab PO DAILY 01/26/21 10/14/24 History tablet insulin detemir U-100 100 unit/mL 45 unit SQ DAILY 01/26/21 10/14/24 History (3 mL) subcutaneous pen metolazone 2.5 mg tablet 2.5 mg PO DAILY 01/26/21 10/14/24 History metoprolol succinate 100 mg 100 mg PO DAILY 01/26/21 10/14/24 History tablet,extended release 24 hr niacin 500 mg tablet,extended 500 mg PO DAILY 01/26/21 10/14/24 History release potassium chloride 20 mEq 20 meq PO TID 01/26/21 10/14/24 History tablet,extended release(part/cryst) rosuvastatin 40 mg tablet 40 mg PO DAILY 01/26/21 10/14/24 History aspirin 81 mg tablet,delayed 81 mg PO DAILY #30 tabs 05/05/21 10/14/24 Rx release (Adult Low Dose Aspirin) furosemide 20 mg tablet 20 mg PO DAILY 12/21/22 10/14/24 History allopurinol 300 mg tablet 300 mg PO DAILY 10/14/24 10/14/24 History insulin human U-100 NPH-regulr 45 unit SQ DAILY 10/14/24 10/14/24 History 70-30 mix 100 unit/mL subcutaneous susp (Humulin 70/30 U-100 Insulin) omega-3 fatty acids 1,000 mg PO DAILY 10/14/24 10/14/24 History triamterene 37.5 See Rx Instructions .Route .COMPLEX 10/14/24 10/14/24 History mg-hydrochlorothiazide 25 mg tablet New Prescriptions to Start Prescriptions: Allergies Allergy/AdvReac Type Severity Reaction Status Date / Time NO KNOWN ALLERGIES Allergy Other Uncoded 10/14/24 18:02 Exam Data for Last 24 hours Vital signs and Labs for Last 24 Hours: Temp Pulse Resp BP Pulse Ox O2 Del Method 98.2 F 89 20 149/82 H 98 Room Air 10/14/24 21:32 10/14/24 21:32 10/14/24 21:32 10/14/24 21:32 10/14/24 17:49 10/14/24 21:32 Laboratory Results - last 24 hr 10/14/24 17:36: WBC 15.4 H, RBC 4.41 L, Hgb 14.4, Hct 45.1, MCV 102.4 H, MCH 32.6 H, MCHC 31.8, RDW 13.8, Plt Count 469 H, MPV 7.0 L, Neut % (Auto) 89.8 H, Lymph % (Auto) 5.2 L, Mcminn % (Auto) 3.4, Eos % (Auto) 1.3, Baso % (Auto) 0.4, Neut # (Auto) 13.8 H, Lymph # (Auto) 0.8, [place] # (Auto) 0.5, Eos # (Auto) 0.2, Baso # (Auto) 0.1, Total Counted 100, Neutrophils % (Manual) 91 H, Lymphocytes % (Manual) 5 L, Monocytes % (Manual) 4, Platelet Estimate Normal, Anisocytosis 2+, Microcytosis 1+, Macrocytosis 2+, Target Cells 1+, PT 9.8 L, INR 0.86 L, APTT 23.7 10/14/24 17:36: APTT 24.5 L, Sodium 136, Potassium 3.5, Chloride 100, Carbon Dioxide 30, Anion Gap 9.5, BUN 12, Creatinine 0.80, Estimated Creat Clear 123, Estimated GFR 98, Est GFR ( Amer) 118, Glucose 175 H, Hemoglobin A1c 6.5 H, Calcium 9.0, Magnesium 1.7, Total Bilirubin 0.7, AST 76 H, ALT 47, Alkaline Phosphatase 105, Total Creatine Kinase 248 H, Troponin I < 0.01, NT-Pro-B Natriuret Pep 813 H, Total Protein 5.7 L, Albumin 3.3 L, Globulin 2.4, Albumin/Globulin Ratio 1.4, Lipase 39, TSH 0.92, Thyroxine (T4) 6.3, Salicylates < 1.0 L, Acetaminophen < 10 L, Plasma/Serum Alcohol 15 H, Acetone Level None detected, HIV 1&2 Antibody Rapid Nonreactive 10/14/24 17:37: VBG pH 7.44 H, VBG pCO2 44.7, VBG pO2 92.8 H, VBG HCO3 29.4, VBG Total CO2 30.8 H, VBG O2 Saturation 97.2 H, VBG Base Excess 5.2 H, VBG Lactic Acid 2.0 10/14/24 17:48: Blood Type B Positive, Antibody Screen Negative 10/14/24 17:58: Lactate 1.3 10/14/24 18:16: Urine Color Yellow, Urine Appearance Clear, Urine pH 6.5, Ur Specific [place] 1.020, Urine Protein Negative, Urine Glucose (UA) 1+, Urine Ketones Trace, Urine Blood Negative, Urine Nitrate Negative, Urine Bilirubin Negative, Urine Urobilinogen 1.0, Ur Leukocyte Esterase Negative, Urine RBC Occasional, Urine WBC 3-5, Ur Squamous Epith Cells 20-50, Urine Bacteria 2+, Urine Mucus 1+, Urine Opiates Screen Negative, Urine Methadone Screen Negative, Ur Barbituates Screen Negative, Ur Phencyclidine Scrn Negative, Ur Amphetamines Screen Negative, U Benzodiazepines Scrn Negative, Urine Cocaine Screen Negative, U Marijuana (THC) Screen Negative 10/14/24 19:40: SARS-CoV-2 (PCR) Not detected, Influenza A Untype (PCR) Not d etected, Influenza Type B (PCR) Not detected 10/14/24 22:10: PT 11.1, INR 0.99, Troponin I < 0.01 10/14/24 22:34: POC Glucose 182 H I & O for Last 24 hours: Intake & Output 10/12/24 10/13/24 10/14/24 10/15/24 05:59 05:59 05:59 05:59 Output Total 0 / 0 Balance 0 / 0 Weight 254 lb
--- NOTE | 2024-10-14 23:15 | P.HP_ITS ---
<Statement entered by Bry Ernst MD - 10/18/24 14:26> I personally evaluated patient and agree with plan of care as outlined by PRICING ASSOCIATE below. History of Present Illness *Admission Date: 10/14/24 *Reason for visit:: Welfare check found down at home syncopal and on responsive *History of present illness: The ER physician is called me down to the emergency room to evaluate. this [employer] . History of having a welfare check ambulance arrived to find him un responsive lying on the floor., Unsure of complete time that he was down.. Patient was found to be hypoglycemic, EMS responded with this oxygen and brought him to the emergency room., Patient did improve. Emergency room physician called the [facility] for transfer. [facility] informed the ER physician that their ER was totally full and they had no beds for him and that he would have to be kept which would be a minimum of 4 hours.. For the patient's comfort and to the fact that they may not be able to transfer him in a reasonable period of time and this condition needs to be cared for he has been placed on the floor in a stepdown bed. ER provider note below 64-year-old male history of type 1 diabetes and CAD, hypertension, hyperlipidemia presenting found down. Patient's family was unable to get a hold of him today, 10/14, so called well check on him. Please arrive, patient was found down, largely unresponsive. EMS was called. On arrival, fingerstick blood glucose for EMS was read as low. Unable to obtain IV access, so gave him 1 mg glucagon IM with mild improvement in mental status. Brought patient to the emergency department. On arrival, patient appears ill. Diaphoretic, pale, pulse 95-100. When rolling into the emergency department, patient able to follow commands. Asked to give thumbs up, was able to do so immediately. Pupils 3 mm and reactive bilaterally. No evidence of scleral icterus. Mucous membranes are dry. Patient oriented to person and situation. Has no complaints. States that he does not have any chest pain, headache, vision changes, nausea or vomiting,, abdominal pain, but he also has no recollection of how he ended up on the ground. States that the last thing he remembers is yesterday. Patient states that he does drink daily states that he last drank 24 hours ago if not a little longer. Denies drug use. History was obtained via conversation with patient, EMS, family. On arrival, patient hemodynamically stable, alert, oriented to person and situation, GCS 15, moving all extremities spontaneously, pupils equal and reactive to light. Full physical exam performed and significant for 64-year-old male who is very ill-appearing. Diaphoretic, pale, borderline tachycardic. Inferior wheezes bilaterally. Following commands. Strength is equal in upper and lower extremities. Pulses equal and symmetric in upper and lower extremities. Abdomen soft, nontender, nondistended. Cardiac exam normal otherwise. Differential includes metabolic abnormality, endocrinologic abnormality, intracranial bleed, accidental insulin overdose, purposeful insulin overdose, alcohol withdrawal seizure, other intoxication, ischemic stroke, seizure disorder, among others. Patient placed on continuous cardiac monitoring and continuous pulse ox with initial blood pressure 166/95, heart rate 86, saturation 8% on room air. Independent interpretation of EKG shows sinus rhythm with no ST or T wave chivo nges concerning for acute ischemia. DC 170, QRS 102, QTc 420. Normal axis.. 2 ultrasound-guided IVs were placed due to difficult IV access. Patient was given D50 bolus for symptomatic management and correction of underlying abnormalities. Also started on D10 drip at 100 mL/h. Workup independently interpreted and significant for leukocytosis 15,000 with neutrophilia. Coags within normal limi ts. VBG largely nonactionable. Lactate negative. Chemistry nonactionable with normal kidney function. A1c 6.5. CK mildly elevated at 248. Troponin negative, BNP elevated at 813. Urinalysis nonactionable.. On independent interpretation of imaging, CT angiogram of the chest with right middle and lower lobes. RV to LV ratio 0.8. No acute intracranial hemorrhage, no acute vascular abnormality of the head or neck. See radiology read for full review of final results. Patient started on heparin drip given elevated BNP and right sided pulmonary emboli. COVID swab obtained for transfer to the MD. this was negative. Because patient high risk for clinical decompensation if discharged, deemed appropriate for transfer and inpatient admission. Results were relayed to patient who voiced understanding and patient was agreeable to transfer, inpatient admission, and management. MD states that they had 4 more hours before they are able to accept patient for transfer. Because of this, hospital medicine was contacted for further evaluation. To be admitted. I do agree with the ER physician so we now have placed him in to the second floor in a stepdown unit with continuous monitoring. Cardiology has been called for consult. Patient is stable at this time but noting once we have got to the floor did find that his feet were in terrible condition. So podiatry consult has been ordered. This is because that may be several days before [facility] could [facility] so we will just consider him ours until they call us and say they are can accept him as a transfer. Will keep close monitoring as I have no idea if this is pulmonary embolism within the lungs or the cause of his collapse. Or if it was related to low blood sugar may be related to alcohol use. During exam, I asked the patient about his medication he had a bag full, he was unsure what his family brought because [facility], so I will not be completely sure what his accurate medications are until checked by pharmacy. [facility] Disclaimer: The information contained in this section may have been updated after the patient was seen, as this information can be updated by other users. Medical History Coronary artery disease Daytime somnolence Diabetes type I Dyspnea HLD (hyperlipidemia) HTN (hypertension) Restless sleeper Social History Smoking Status: Never smoker alcohol intake: current alcohol intake frequency: holidays/special occasions only substance use type: denies use current occupational status: employed and disabled Travel in the last 8 weeks: Inside the [place] Other Medical History Have you received the Flu Vaccine for this season: No Have you received the Pneumonia Vaccine: No Review of Systems Review of Systems Review of systems:: pertinent systems reviewed and negative unless documented below Constitutional Constitutional: Reports as per HPI Eyes Eyes: Reports as per HPI ENT Ears, Nose, Mouth, and Throat: Reports as per HPI *Cardiovascular Cardiovascular: Reports as per HPI *Respiratory Respiratory: Reports as per HPI *Gastrointestinal Gastrointestinal: Reports as per HPI *Genitourinary Genitourinary: Reports as per HPI *Musculoskeletal Musculoskeletal: Reports as per HPI Integumentary/Breasts Skin/Breast: Reports as per HPI *Neurologic Neurologic: Reports as per HPI Psychiatric Psychiatric: Reports as per HPI Endocrine Endocrine: Reports as per HPI Hematologic/Lymphatic Hematologic/Lymphatic: Reports as per HPI Allergic/Immunologic Allergic/Immunologic: Reports as per HPI Meds Home Medications and Allergies Home Medications ?Medication ?Instructions ?Recorded ?Confirmed ?Type metoprolol succinate 100 mg 100 mg PO DAILY 01/26/21 10/15/24 History tablet,extended release 24 hr potassium chloride 20 mEq 20 meq PO TID 01/26/21 10/15/24 History tablet,extended release(part/cryst) rosuvastatin 40 mg tablet 40 mg PO HS 01/26/21 10/15/24 History furosemide 20 mg tablet 20 mg PO DAILY 12/21/22 10/15/24 History allopurinol 300 mg tablet 300 mg PO DAILY 10/14/24 10/15/24 History insulin human U-100 NPH-regulr 45 unit SQ AM 10/14/24 10/15/24 History 70-30 mix 100 unit/mL subcutaneous susp (Humulin 70/30 U-100 Insulin) amlodipine 5 mg tablet 5 mg PO DAILY 10/15/24 10/15/24 History apixaban 5 mg tablet (Eliquis) 5 mg PO BID #30 tabs 10/15/24 Rx apixaban 5 mg tablet (Eliquis) 10 mg (2 x 5 mg) PO BID 6 days #24 10/15/24 Rx tabs ascorbic acid (vitamin C) 500 mg 500 mg PO DAILY 10/15/24 10/15/24 History tablet cholecalciferol (vitamin D3) 100 100 mcg PO DAILY 10/15/24 10/15/24 History mcg (4,000 unit) tablet empagliflozin 10 mg tablet 10 mg PO DAILY 10/15/24 10/15/24 History ferrous gluconate 324 mg (38 mg 324 mg PO DAILY 10/15/24 10/15/24 History iron) tablet insulin glargine 100 unit/mL 25 unit SQ DAILY 10/15/24 10/15/24 History subcutaneous solution (Lantus U-100 Insulin) metolazone 5 mg tablet 5 mg PO DAILY 10/15/24 10/15/24 History triamterene 37.5 1 tab PO DAILY 10/15/24 10/15/24 History mg-hydrochlorothiazide 25 mg tablet valsartan 160 mg tablet 160 mg PO DAILY 10/15/24 10/15/24 History New Prescriptions to Start Prescriptions: apixaban [Eliquis] Bry Ernst apixaban [Eliquis] ConsueloBry fisher Allergies Allergy/AdvReac Type Severity Reaction Status Date / Time No Known Allergies Allergy Unverified 10/15/24 07:22 Exam Data for Last 24 hours Vital signs and Labs for Last 24 Hours: Temp Pulse Resp BP Pulse Ox O2 Del Method 98.2 F 89 20 149/82 H 98 Room Air 10/14/24 21:32 10/14/24 21:32 10/14/24 21:32 10/14/24 21:32 10/14/24 17:49 10/14/24 21:32 Laboratory Results - last 24 hr 10/14/24 17:36: WBC 15.4 H, RBC 4.41 L, Hgb 14.4, Hct 45.1, MCV 102.4 H, MCH 32.6 H, MCHC 31.8, RDW 13.8, Plt Count 469 H, MPV 7.0 L, Neut % (Auto) 89.8 H, Lymph % (Auto) 5.2 L, Leake % (Auto) 3.4, Eos % (Auto) 1.3, Baso % (Auto) 0.4, Neut # (Auto) 13.8 H, Lymph # (Auto) 0.8, [place]ake # (Auto) 0.5, Eos # (Auto) 0.2, Baso # (Auto) 0.1, Total Counted 100, Neutrophils % (Manual) 91 H, Lymphocytes % (Manual) 5 L, Monocytes % (Manual) 4, Platelet Estimate Normal, Anisocytosis 2+, Microcytosis 1+, Macrocytosis 2+, Target Cells 1+, PT 9.8 L, INR 0.86 L, APTT 23.7 10/14/24 17:36: APTT 24.5 L, Sodium 136, Potassium 3.5, Chloride 100, Carbon Dioxide 30, Anion Gap 9.5, BUN 12, Creatinine 0.80, Estimated Creat Clear 123, Estimated GFR 98, Est GFR ( Amer) 118, Glucose 175 H, Hemoglobin A1c 6.5 H, Calcium 9.0, Magnesium 1.7, Total Bilirubin 0.7, AST 76 H, ALT 47, Alkaline Phosphatase 105, Total Creatine Kinase 248 H, Troponin I < 0.01, NT-Pro-B Natriuret Pep 813 H, Total Protein 5.7 L, Albumin 3.3 L, Globulin 2.4, Albumin/Globulin Ratio 1.4, Lipase 39, TSH 0.92, Thyroxine (T4) 6.3, Salicylates < 1.0 L, Acetaminophen < 10 L, Plasma/Serum Alcohol 15 H, Acetone Level None detected, HIV 1&2 Antibody Rapid Nonreactive 10/14/24 17:37: VBG pH 7.44 H, VBG pCO2 44.7, VBG pO2 92.8 H, VBG HCO3 29.4, VBG Total CO2 30.8 H, VBG O2 Saturation 97.2 H, VBG Base Excess 5.2 H, VBG Lactic Acid 2.0 10/14/24 17:48: Blood Type B Positive, Antibody Screen Negative 10/14/24 17:58: Lactate 1.3 10/14/24 18:16: Urine Color Yellow, Urine Appearance Clear, Urine pH 6.5, Ur Specific [place] 1.020, Urine Protein Negative, Urine Glucose (UA) 1+, Urine Ketones Trace, Urine Blood Negative, Urine Nitrate Negative, Urine Bilirubin Negative, Urine Urobilinogen 1.0, Ur Leukocyte Esterase Negative, Urine RBC Occasional, Urine WBC 3-5, Ur Squamous Epith Cells 20-50, Urine Bacteria 2+, Urine Mucus 1+, Urine Opiates Screen Negative, Urine Methadone Screen Negative, Ur Barbituates Screen Negative, Ur Phencyclidine Scrn Negative, Ur Amphetamines Screen Negative, U Benzodiazepines Scrn Negative, Urine Cocaine Screen Negative, U Marijuana (THC) Screen Negative 10/14/24 19:40: SARS-CoV-2 (PCR) Not detected, Influenza A Untype (PCR) Not detected, Influenza Type B (PCR) Not detected 10/14/24 22:10: PT 11.1, INR 0.99, Troponin I < 0.01 10/14/24 22:34: POC Glucose 182 H I & O for Last 24 hours: Intake & Output 10/12/24 10/13/24 10/14/24 10/15/24 05:59 05:59 05:59 05:59 Output Total 0 / 0 Balance 0 / 0 Weight 254 lb Radiology Reports for the Last 24 Hours: Pulmonary embolisms found in right middle and lower lobe Constitutional Constitutional: mild distress, obese, chronically ill appearing, cooperative and somnolent Comments: Patient is a little bit slow confused do not know if this is his baseline *Routine HEENT Exam Head: Present normocephalic and atraumatic Eye: Present EOMI and PERRL ENT: Present mucous membranes dry, oropharynx clear and external ear normal *Routine Neck Exam Neck: Present supple and full ROM Routine Chest/Breast/Axilla Exam Comments: No chest wall pain found patient able to move without assistance, and showed no signs of discomfort *Routine Respiratory Exam Respiratory: Present decreased breath sounds, CTA bilaterally, distant breath sounds, diminished air movement, normal respiratory effort, able to speak in complete sentences and symmetric chest movement Comments: Decreased 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 left *Routine Cardiovascular Exam Cardiovascular: Present RRR, Normal S1, Normal S2 and murmur Comments: Light systolic murmur heard *Routine Abdominal Exam Abdominal: Present soft and normoactive bowel sounds Comments: No tenderness on palpation of the abdomen *Routine Rectal Exam Rectal:: deferred *Routine Genitalia Exam Genitalia:: deferred *Routine Extremities Exam Extremities: Present edema and normal capillary refill Comments: Feet extremely thickened skin that thickened nails that have not been trimmed, trace edema to the feet Routine Back/Spine/Pelvis Exam Back/Spine: Present full ROM *Routine Skin Exam Skin: Present intact and warm Comments: Noted thickened cracked skin to feet *Routine Neurological Exam Neurological: Present alert, oriented X3, CN II-XII intact, normal tone, vision grossly intact and hearing grossly intact Routine Psychiatric Exam Psychiatric: Present normal affect, normal thought process and cooperative H&P: Result Impressions 1. Pulmonary embolism with right lung, also found down at home unsure if PE was the cause 2. Alcohol use also found on lab screening. 3. Diabetes mellitus with diabetic foot poor, care of his feet is noted. 4 diabetes mellitus Imaging and Cardiology CT scan - chest: Status: image reviewed by me Additional comments: Do agree with the written report that a PE in the right and lower middle lobes was noted Assessment and Plan *Assessment and plan (1) Syncope and collapse: Status: Acute Category: Medical Code(s): R55 - Syncope and collapse (2) Pulmonary emboli: Status: Acute Qualifiers: Acute cor pulmonale presence: unspecified Chronicity: unspecified Pulmonary embolism type: unspecified Qualified Code(s): I26.99 - Other pulmonary embolism without acute cor pulmonale Category: Medical Code(s): I26.99 - Other pulmonary embolism without acute cor pulmonale (3) Hypoglycemia: Status: Acute Category: Medical Code(s): E16.2 - Hypoglycemia, unspecified (4) Coronary artery disease: Status: Acute Qualifiers: Associated angina: without angina Coronary Disease-Associated Artery/Lesion type: [place] artery [place] vs. transplanted heart: [place] heart Qualified Code(s): I25.10 - Atherosclerotic heart disease of [place] coronary artery without angina pectoris Category: Medical Code(s): I25.10 - Atherosclerotic heart disease of [place] coronary artery without angina pectoris (5) Dyspnea: Status: Acute Qualifiers: Dyspnea type: dyspnea on exertion Qualified Code(s): R06.00 - Dyspnea, unspecified Category: Medical Code(s): R06.00 - Dyspnea, unspecified (6) Diabetes type I: Status: Acute Qualifiers: Diabetes mellitus complication status: without complication Qualified Code(s): E10.9 - Type 1 diabetes mellitus without complications Category: Medical Code(s): E10.9 - Type 1 diabetes mellitus without complications (7) HLD (hyperlipidemia): Status: Acute Qualifiers: Hyperlipidemia type: other hyperlipidemia Qualified Code(s): E78.49 - Other hyperlipidemia Category: Medical Code(s): E78.5 - Hyperlipidemia, unspecified (8) HTN (hypertension): Status: Acute Qualifiers: Hypertension type: essential hypertension Qualified Code(s): I10 - Essential (primary) hypertension Category: Medical Code(s): I10 - Essential (primary) hypertension Plan 1. Patient is a but the MD was unable to accept transfer. As their ER was extremely full and they did not have beds. Noting the pulmonary embolism unsure of acute versus chronic.. But patient was found down by EMS and was nonresponsive when first taking care of.. For this reason we will go ahead and admit to the floor. Have consulted cardiology and will hold on the heparin drip go with the Lovenox twice a day per body weight. Continue to monitor the patient for any changes in oxygen saturation. Further evaluation in the a.m. by cardiology if transfer is not achieved 2. Diabetes mellitus with obesity. Hemoglobin A1c is actually very good at 6.5 the patient has insulin. Will monitor before meals and at bedtime blood sugars sliding scale and continue his insulin if the patient is eating correctly. 3. Alcohol use watching for any signs of withdrawal from alcohol. 4. Diabetic type feet extremely thickened skin with cracks nails that have not been trimmed for quite some time. Podiatry consult initiated.
[2024-10-14 23:19] LABS: Adenovirus,PCR Not Detected (NotDetected); Bordetella Pertussis Not Detected (NotDetected); Chlamydophila Pneumoniae, PCR Not Detected (NotDetected); Coronavirus 19, PCR Not Detected (NotDetected); Coronavirus 229E Not Detected (NotDetected); Coronavirus NL63 Not Detected (NotDetected); Coronavirus OC43 Not Detected (NotDetected); Coronovirus HKU1,PCR Not Detected (NotDetected); Human Metapneumovirus Not Detected (NotDetected); Influenza A, PCR Not Detected (NotDetected); Influenza AH1, 2009 Not Detected (NotDetected); Influenza AH1, PCR Not Detected (NotDetected); Influenza AH3,PCR Not Detected (NotDetected); Influenza B, PCR Not Detected (NotDetected); Mycoplasma Pneumoniae, PCR Not Detected (NotDetected); Parainfluenza 1, PCR Not Detected (NotDetected); Parainfluenza 2, PCR Not Detected (NotDetected); Parainfluenza 3, PCR Not Detected (NotDetected); Parainfluenza 4, PCR Not Detected (NotDetected); Respiratory Syncytial Virus Not Detected (NotDetected); Rhinovirus/Enterovirus Not Detected (NotDetected)
[2024-10-14] MEDS: ENOXAPARIN 100MG/ML SYRINGE 115 MG SUBCUT (23:23)
[2024-10-14] MEDS: LACTATED RINGERS 1000ML 1,000 ML 75 ML IV (23:24)
[2024-10-15] VITALS (12 sets, daily range): BP systolic 120–169; BP diastolic 51–85; PULSE 70–90; RESP 15–20; TEMP 36.6; O2SAT 97–100; BMI 33.7
[2024-10-15 02:00] LABS: Troponin I < 0.01 ng/ml (0.00-0.034)
[2024-10-15 05:10] LABS: POC Glucose,Bedside 83 (70-110)
--- NOTE | 2024-10-15 06:44 | EXP.POD.CONS ---
History of Present Illness *Admission Date: 10/14/24 *History of present illness: The ER physician is called me down to the emergency room to evaluate. this [employer] . History of having a welfare check ambulance arrived to find him unresponsive lying on the floor., Unsure of complete time that he was down.. Patient was found to be hypoglycemic, EMS responded with this oxygen and brought him to the emergency room., Patient did improve. Emergency room physician called the [facility] for transfer. [facility] informed the ER physician that their ER was totally full and they had no beds for him and that he would have to be kept which would be a minimum of 4 hours.. For the patient's comfort and to the fact that they may not be able to transfer him in a reasonable period of time and this condition needs to be cared for he has been placed on the floor in a stepdown bed. ER provider note below 64-year-old male history of type 1 diabetes and CAD, hypertension, hyperlipidemia presenting found down. Patient's family was unable to get a hold of him today, 10/14, so called well check on him. Please arrive, patient was found down, largely unresponsive. EMS was called. On arrival, fingerstick blood glucose for EMS was read as low. Unable to obtain IV access, so gave him 1 mg glucagon IM with mild improvement in mental status. Brought patient to the emergency department. On arrival, patient appears ill. Diaphoretic, pale, pulse 95-100. When rolling into the emergency department, patient able to follow commands. Asked to give thumbs up, was able to do so immediately. Pupils 3 mm and reactive bilaterally. No evidence of scleral icterus. Mucous membranes are dry. Patient oriented to person and situation. Has no complaints. States that he does not have any chest pain, headache, vision changes, nausea or vomiting,, abdominal pain, but he also has no recollection of how he ended up on the ground. States that the last thing he remembers is yesterday. Patient states that he does drink daily states that he last drank 24 hours ago if not a little longer. Denies drug use. History was obtained via conversation with patient, EMS, family. On arrival, patient hemodynamically stable, alert, oriented to person and situation, GCS 15, moving all extremities spontaneously, pupils equal and reactive to light. Full physical exam performed and significant for 64-year-old male who is very ill-appearing. Diaphoretic, pale, borderline tachycardic. Inferior wheezes bilaterally. Following commands. Strength is equal in upper and lower extremities. Pulses equal and symmetric in upper and lower extremities. Abdomen soft, nontender, nondistended. Cardiac exam normal otherwise. Differential includes metabolic abnormality, endocrinologic abnormality, intracranial bleed, accidental insulin overdose, purposeful insulin overdose, alcohol withdrawal seizure, other intoxication, ischemic stroke, seizure disorder, among others. Patient placed on continuous cardiac monitoring and continuous pulse ox with initial blood pressure 166/95, heart rate 86, saturation 8% on room air. Independent interpretation of EKG shows sinus rhythm with no ST or T wave changes concerning for acute ischemia. MD 170, QRS 102, QTc 420. Normal axis.. 2 ultrasound-guided IVs were placed due to difficult IV access. Patient was given D50 bolus for symptomatic management and correction of underlying abnormalities. Also started on D10 drip at 100 mL/h. Workup independently interpreted and significant for leukocytosis 15,000 with neutrophilia. Coags within normal limits. VBG largely nonactionable. Lactate negative. Chemistry nonactionable with normal kidney function. A1c 6.5. CK mildly elevated at 248. Troponin negative, BNP elevated at 813. Urinalysis nonactionable.. On independent interpretation of imaging, CT angiogram of the chest with right middle and lower lobes. RV to LV ratio 0.8. No acute intracranial hemorrhage, no acute vascular abnormality of the head or neck. See radiology read for full review of final results. Patient started on heparin drip given elevated BNP and right sided pulmonary emboli. COVID swab obtained for transfer to the [place]. this was negative. Because patient high risk for clinical decompensation if discharged, deemed appropriate for transfer and inpatient admission. Results were relayed to patient who voiced understanding and patient was agreeable to transfer, inpatient admission, and management. [place] states that they had 4 more hours before they are able to accept patient for transfer. Because of this, hospital medicine was contacted for further evaluation. To be admitted. I do agree with the ER physician so we now have placed him in to the second floor in a stepdown unit with continuous monitoring. Cardiology has been called for consult. Patient is stable at this time but noting once we have got to the floor did find that his feet were in terrible condition. So podiatry consult has been ordered. This is because that may be several days before [facility] could [facility] so we will just consider him ours until they call us and say they are can accept him as a transfer. Will keep close monitoring as I have no idea if this is pulmonary embolism within the lungs or the cause of his collapse. Or if it was related to low blood sugar may be related to alcohol use. During exam, I asked the patient about his medication he had a bag full, he was unsure what his family brought because he has new medicines from the [place], so I will not be completely sure what his accurate medications are until checked by pharmacy. 10/15/24: Podiatry consult Patient presents to the emergency department that was found unresponsive in his home. He is a but [place] was unable to accept his transfer been admitted to second floor step-down bed. Patient is awaiting cardiology consultation and podiatry has now been consulted. Patient has diabetic foot with extremely thickened skin with cracks, nails long dystrophic and have not been trimmed for quite some time plan to trim patient's nails and evaluate the condition of his skin. [facility] Disclaimer: The information contained in this section may have been updated after the patient was seen, as this information can be updated by other users. Medical History Coronary artery disease Daytime somnolence Diabetes type I Dyspnea HLD (hyperlipidemia) HTN (hypertension) Restless sleeper Social History Smoking Status: Never smoker alcohol intake: current alcohol intake frequency: holidays/special occasions only substance use type: denies use current occupational status: employed and disabled Travel in the last 8 weeks: Inside the [place] Review of Systems *Neurologic Neurologic: Reports as per [facility] Meds Home Medications and Allergies Home Medications ?Medication ?Instructions ?Recorded ?Confirmed ?Type metoprolol succinate 100 mg 100 mg PO DAILY 01/26/21 10/15/24 History tablet,extended release 24 hr potassium chloride 20 mEq 20 meq PO TID 01/26/21 10/15/24 History tablet,extended release(part/cryst) rosuvastatin 40 mg tablet 40 mg PO HS 01/26/21 10/15/24 History furosemide 20 mg tablet 20 mg PO DAILY 12/21/22 10/15/24 History allopurinol 300 mg tablet 300 mg PO DAILY 10/14/24 10/15/24 History insulin human U-100 NPH-regulr 45 unit SQ AM 10/14/24 10/15/24 History 70-30 mix 100 unit/mL subcutaneous susp (Humulin 70/30 U-100 Insulin) amlodipine 5 mg tablet 5 mg PO DAILY 10/15/24 10/15/24 History ascorbic acid (vitamin C) 500 mg 500 mg PO DAILY 10/15/24 10/15/24 History tablet cholecalciferol (vitamin D3) 100 100 mcg PO DAILY 10/15/24 10/15/24 History mcg (4,000 unit) tablet empagliflozin 10 mg tablet 10 mg PO DAILY 10/15/24 10/15/24 History ferrous gluconate 324 mg (38 mg 324 mg PO DAILY 10/15/24 10/15/24 History iron) tablet insulin glargine 100 unit/mL 25 unit SQ DAILY 10/15/24 10/15/24 History subcutaneous solution (Lantus U-100 Insulin) metolazone 5 mg tablet 5 mg PO DAILY 10/15/24 10/15/24 History triamterene 37.5 1 tab PO DAILY 10/15/24 10/15/24 History mg-hydrochlorothiazide 25 mg tablet valsartan 160 mg tablet 160 mg PO DAILY 10/15/24 10/15/24 History New Prescriptions to Start Prescriptions: Allergies Allergy/AdvReac Type Severity Reaction Status Date / Time No Known Allergies Allergy Unverified 10/15/24 07:22 Exam (Inpt) Vital signs and Labs for Last 24 Hours: Temp Pulse Resp BP Pulse Ox O2 Del Method 97.8 F 89 16 150/85 H 98 Room Air 10/15/24 04:37 10/15/24 06:00 10/15/24 06:00 10/15/24 06:00 10/15/24 06:00 10/15/24 06:00 Laboratory Results - last 24 hr 10/14/24 17:36: WBC 15.4 H, RBC 4.41 L, Hgb 14.4, Hct 45.1, MCV 102.4 H, MCH 32.6 H, MCHC 31.8, RDW 13.8, Plt Count 469 H, MPV 7.0 L, Neut % (Auto) 89.8 H, Lymph % (Auto) 5.2 L, [place] % (Auto) 3.4, Eos % (Auto) 1.3, Baso % (Auto) 0.4, Neut # (Auto) 13.8 H, Lymph # (Auto) 0.8, [place] # (Auto) 0.5, Eos # (Auto) 0.2, Baso # (Auto) 0.1, Total Counted 100, Neutrophils % (Manual) 91 H, Lymphocytes % (Manual) 5 L, Monocytes % (Manual) 4, Platelet Estimate Normal, Anisocytosis 2+, Microcytosis 1+, Macrocytosis 2+, Target Cells 1+, PT 9.8 L, INR 0.86 L, APTT 23.7 10/14/24 17:36: APTT 24.5 L, Sodium 136, Potassium 3.5, Chloride 100, Carbon Dioxide 30, Anion Gap 9.5, BUN 12, Creatinine 0.80, Estimated Creat Clear 123, Estimated GFR 98, Est GFR ( Amer) 118, Glucose 175 H, Hemoglobin A1c 6.5 H, Calcium 9.0, Magnesium 1.7, Total Bilirubin 0.7, AST 76 H, ALT 47, Alkaline Phosphatase 105, Total Creatine Kinase 248 H, Troponin I < 0.01, NT-Pro-B Natriuret Pep 813 H, Total Protein 5.7 L, Albumin 3.3 L, Globulin 2.4, Albumin/Globulin Ratio 1.4, Lipase 39, TSH 0.92, Thyroxine (T4) 6.3, Salicylates < 1.0 L, Acetaminophen < 10 L, Plasma/Serum Alcohol 15 H, Acetone Level None detected, HIV 1&2 Antibody Rapid Nonreactive 10/14/24 17:37: VBG pH 7.44 H, VBG pCO2 44.7, VBG pO2 92.8 H, VBG HCO3 29.4, VBG Total CO2 30.8 H, VBG O2 Saturation 97.2 H, VBG Base Excess 5.2 H, VBG Lactic Acid 2.0 10/14/24 17:48: Blood Type B Positive, Antibody Screen Negative 10/14/24 17:58: Lactate 1.3 10/14/24 18:16: Urine Color Yellow, Urine Appearance Clear, Urine pH 6.5, Ur Specific [place] 1.020, Urine Protein Negative, Urine Glucose (UA) 1+, Urine Ketones Trace, Urine Blood Negative, Urine Nitrate Negative, Urine Bilirubin Negative, Urine Urobilinogen 1.0, Ur Leukocyte Esterase Negative, Urine RBC Occasional, Urine WBC 3-5, Ur Squamous Epith Cells 20-50, Urine Bacteria 2+, Urine Mucus 1+, Urine Opiates Screen Negative, Urine Methadone Screen Negative, Ur Barbituates Screen Negative, Ur Phencyclidine Scrn Negative, Ur Amphetamines Screen Negative, U Benzodiazepines Scrn Negative, Urine Cocaine Screen Negative, U Marijuana (THC) Screen Negative 10/14/24 19:40: SARS-CoV-2 (PCR) Not detected, Influenza A Untype (PCR) Not detected, Influenza Type B (PCR) Not detected 10/14/24 22:10: PT 11.1, INR 0.99, Troponin I < 0.01 10/14/24 22:34: POC Glucose 182 H 10/15/24 01:10: Troponin I < 0.01 10/15/24 05:03: POC Glucose 83 I & O for Labs for Last 24 Hours: Intake & Output 10/12/24 10/13/24 10/14/24 10/15/24 23:59 23:59 23:59 23:59 Intake Total 2221 / 2221 Output Total 0 / 0 250 / 250 Balance 0 / 0 1970 Weight 254 lb 254 lb 9.6 oz Constitutional: Present no acute distress and cooperative Head: Present normocephalic Eye: Present as per HPI Neck: Present trachea midline Respiratory: Present normal respiratory effort and able to speak in complete sentences Cardiac: Present posterior tibial pulses present and pedal pulses present Extremities: Present normal capillary refill and edema; Absent calf tenderness Skin: Present intact, dry, warm and normal turgor Comment:: Thick callused skin, long dystrophic nails. -Nails trimmed at bedside, Left hallux loose, crumbly due to onychomycosis and was trimmed back to base of nail -Onychomycosis noted to all the nails -Calluses x 4 debrided; bilateral sub-first, sub-fifth plantar surface no underlying ulcers. -Skin intact, very dry and flaky, no visible ulcers or breaks in skin -Palpable DP pulses b/l, unable to palpate his PT pulses due to edema. Neuro: Present Grossly Intact, oriented x 3, tone normal and moves all extremities Comment:: Light touch protective sensation intact, no focal deficits, nml muscle mass. Good sensation noted with monofilament. Ankle: bilateral: normal inspection and bilateral: swelling (2+pedal and ankle edema ) Feet/Toes: bilateral: nail abnormalities (Thickened, discolored nails), bilateral: Ingrown Toenail (Incurvated nail), bilateral: onychomycosis (nails thick and crumbly with nail fungus ) and bilateral: swelling (2+ pedal edema ) Inspection: Present nail disorder and calluses/corns; Absent skin break or infection Pulses: L dorsalis pedis pulse: normal, R dorsalis pedis pulse: normal, L posterior tibial pulse: diminished (unable to palpate due to 2+ edema ) and R posterior tibial pulse: diminished CFT: normal: CFT Monofilament exam: L 1st metatarsals: normal, L 3rd metatarsals: normal, L 5th metatarsals: normal, L great toe: normal, L 3rd toe: normal, L 5th toe: normal, R 1st metatarsals: normal, R 3rd metatarsals: normal, R 5th metatarsals: normal, R great toe: normal, R 3rd toe: normal and R 5th toe: normal Pinprick: L great toe: normal and R great toe: normal Ankle reflex: Left: normal and Right: normal Results Labs 10/15/24 06:30 10/15/24 06:30 Labs: Abnormal lab results 10/14/24 10/14/24 10/14/24 Range/Units 17:36 17:37 22:34 WBC 15.4 H (4.8-10.8) K/mm3 RBC 4.41 L (4.60-6.20) M/mm3 MCV 102.4 H (80-94) fl MCH 32.6 H (27.0-31.2) pg Plt Count 469 H (142-424) K/mm3 MPV 7.0 L (7.4-10.4) fl Neut % (Auto) 89.8 H (37.0-80.0) % Lymph % (Auto) 5.2 L (10-50) % Neut # (Auto) 13.8 H (1.8-7.8) K/mm3 Neutrophils % (Manual) 91 H (42-76) % Lymphocytes % (Manual) 5 L (10-50) % PT 9.8 L (10.1-12.5) seconds INR 0.86 L (0.9-1.1) APTT 24.5 L (50-75) Seconds VBG pH 7.44 H (7.31-7.41) mmol/L VBG pO2 92.8 H (28-40) mmol/L VBG Total CO2 30.8 H (23-27) mmol/L VBG O2 Saturation 97.2 H (50-70) % VBG Base Excess 5.2 H (-2.4-2.3) mmol/L Glucose 175 H (74-100) mg/dl POC Glucose 182 H (70-110) Hemoglobin A1c 6.5 H (4.0-6.0) % AST 76 H (17-59) U/L Total Creatine Kinase 248 H (55-170) U/L NT-Pro-B Natriuret Pep 813 H (0-125) pg/mL Total Protein 5.7 L (6.3-8.2) g/dl Albumin 3.3 L (3.5-5.0) g/dl Salicylates < 1.0 L (2.0-20.0) mg/dL Acetaminophen < 10 L (10-30) ug/ml Plasma/Serum Alcohol 15 H (0-10) mg/dl H & H 10/14/24 Range/Units 17:36 Hgb 14.4 (14.1-18.0) g/dL Hct 45.1 (42.0-52.0) % Coagulation 10/14/24 10/14/24 Range/Units 17:36 22:10 INR 0.86 L 0.99 (0.9-1.1) All other labs normal. Assessment and Plan *Assessment and plan (1) Syncope and collapse: Status: Acute Category: Medical Code(s): R55 - Syncope and collapse (2) Pulmonary emboli: Status: Acute Qualifiers: Acute cor pulmonale presence: unspecified Chronicity: unspecified Pulmonary embolism type: unspecified Qualified Code(s): I26.99 - Other pulmonary embolism without acute cor pulmonale Category: Medical Code(s): I26.99 - Other pulmonary embolism without acute cor pulmonale (3) Hypoglycemia: Status: Acute Category: Medical Code(s): E16.2 - Hypoglycemia, unspecified (4) Coronary artery disease: Status: Acute Qualifiers: Associated angina: without angina Coronary Disease-Associated Artery/Lesion type: [place] artery [place] vs. transplanted heart: [place] heart Qualified Code(s): I25.10 - Atherosclerotic heart disease of [place] coronary artery without angina pectoris Category: Medical Code(s): I25.10 - Atherosclerotic heart disease of [place] coronary artery without angina pectoris (5) Dyspnea: Status: Acute Qualifiers: Dyspnea type: dyspnea on exertion Qualified Code(s): R06.00 - Dyspnea, unspecified Category: Medical Code(s): R06.00 - Dyspnea, unspecified (6) Diabetes type I: Status: Acute Qualifiers: Diabetes mellitus complication status: without complication Qualified Code(s): E10.9 - Type 1 diabetes mellitus without complications Category: Medical Code(s): E10.9 - Type 1 diabetes mellitus without complications (7) HLD (hyperlipidemia): Status: Acute Qualifiers: Hyperlipidemia type: other hyperlipidemia Qualified Code(s): E78.49 - Other hyperlipidemia Category: Medical Code(s): E78.5 - Hyperlipidemia, unspecified (8) HTN (hypertension): Status: Acute Qualifiers: Hypertension type: essential hypertension Qualified Code(s): I10 - Essential (primary) hypertension Category: Medical Code(s): I10 - Essential (primary) hypertension (9) Onychodystrophy: Status: Acute Category: Medical Code(s): L60.3 - Nail dystrophy (10) Diabetic foot: Status: Acute Category: Medical Code(s): E11.8 - Type 2 diabetes mellitus with unspecified complications (11) Onychomycosis: Status: Acute Category: Medical Code(s): B35.1 - Tinea unguium (12) Callus of foot: Status: Acute Category: Medical Code(s): L84 - Corns and callosities (13) Keratosis: Status: Acute Category: Medical Code(s): L57.0 - Actinic keratosis (14) Avulsion of nail plate: Status: Acute Category: Medical Plan 10/15/24: Labs evaluated: WBC 15.4- 14.5, neutrophils 13.8, 12.1, glucose 175-92, A1c 6.5% protein 5.7-5.7, albumin 3.3-3.2, plasma/serum alcohol 15 Onychodystrophy, onychomycosis, Keratosis: Nails were debrided x?s 10 utilizing manual debridement with a nail nipper. Patient tolerated the procedure well. Nail fungus noted to all the nails, thick and crumbly Patient stated he will be going to the [place] for podiatry needs or use [facility] Podiatry for his DFC/nail trimming. Discussed with him to start applying moisturizer to feet and legs daily to avoid skin breakdown Callus Care: Calluses x 4; bilateral sub-first, sub-fifth no underlying ulceration, were debrided with a number 15 blade without incident. Recommend for patient to apply bland moisturization to callused areas daily. Nail Avulsion: Left hallux was loose and crumbly lifting off nail bed Nail nippers used to trim down securely to base of nail No drainage or SOI noted He may follow up with us as needed or in 3 months for DFC nail trimming He does not require any surgical or other podiatry needs from us He is stable from our standpoint to be discharged at hospitalist discretion All order per Dr. Flynn
[2024-10-15 06:45] LABS: Basophils # 0.1 K/mm3 (0-0.2); Basophils % 0.6 % (0.1-2.0); Eosinophils # 0.3 K/mm3 (0.0-0.4); Eosinophils % 1.9 % (0.1-12.0); Hematocrit 40.3 % (42.0-52.0); Hemoglobin 13.2 g/dL (14.1-18.0); Lymphocytes # 1.2 K/mm3 (0.7-4.5); Lymphocytes % 8.5 % (10-50); Mean Corpuscular HGB Conc 32.9 g/dL (31.8-35.4); Mean Corpuscular Hemoglobin 33.3 pg (27.0-31.2); Mean Corpuscular Volume 101.4 fl (80-94); Mean Platelet Volume 7.2 fl (7.4-10.4); Monocytes # 0.8 K/mm3 (0.1-1.0); Monocytes % 5.5 % (1.7-9.3); Neutrophils # 12.1 K/mm3 (1.8-7.8); Neutrophils % 83.5 % (37.0-80.0); Platelet Count 423 K/mm3 (142-424); Red Blood Count 3.97 M/mm3 (4.60-6.20); Red Cell Distribution Width 14.1 % (11.5-17.5); White Blood Count 14.5 K/mm3 (4.8-10.8)
--- NOTE | 2024-10-15 06:47 | CA_ITS ---
APPROVED REPORT EXAM: Comprehensive 2D, Doppler, and color-flow Echocardiogram Special Education Paraeducator: WALLACE Forrest, RVS Ht: 6 ft 0 in Wt: 254lbs BSA: 2.36 BP: 148/86 mmHg Indications: PE, DM, CAD, HTN, HLD Echo Enhancing Agent Indication: Endocardial border delineation Agent(s) / Amount(s) Used: Definity 2 cc Comments: Technically limited windows due to body habitus. Poor acoustic properties throughout exam. 2D Dimensions Left Atrium 3.85 cm M: 3.0 - 4.0 LA Volume 63.00 mL LA Volume Index 26.811698 mL/m2 (M/F) 16-34 EF AP4 65.50 % GL Strain -18.4 % M-Mode Dimensions RVDd 1.98 cm (0.9-2.6) LA Diam 4.10 cm (1.9-4.0) LVDd 5.87 cm (3.5-5.7) LVDs 3.28 cm (3.5-5.7) IVSd 0.88 cm (0.6-1.1) PWd 0.99 cm (0.6-1.1) EF (Teich) 68.40% EPSs 0.34 cm FS 38.60% EDV (Teich) 137.70 mL TAPSE 2.78 (<1.7) ESV (Teich) 43.50 mL LV Diastology E Decel Time 152 (160-240 msec) E/A Ratio 1.02 MED A' 14.10 cm/s LAT A' 8.60 cm/s Aortic Valve ALICIA Index 1.17 cm2/m2 AoV Peak Armin. 125.0 (50-130 cm/s) AO Peak GR. 6.30 mmHg AO Mean GR. 3.20 (<5 mmHg) AO VTI 24.5 (18-25 cm) ALICIA (VTI) 2.83 (2.5-4.5 cm2) Mitral Valve MV A Velocity 85.0 (40-130 cm/s) E/A Ratio 1.02 Pulmonary Valve PV Peak Velocity 99.0 (50-150 cm/s) Left Ventricle The left ventricle is normal size. The left ventricular systolic function is normal. The left ventricular ejection fraction is within the normal range. There is increased LV wall thickness. There is normal LV segmental wall motion. The left ventricular diastolic function is normal. No left ventricle thrombus noted on this study. LVEF is 55%. Right Ventricle The right ventricle is not very well-visualized, but grossly appears normal in size and function. Atria The left atrium size is normal. The right atrium size is normal. There is no Doppler evidence of interatrial shunt. Aortic Valve The aortic valve is mildly thickened. There is no aortic valvular stenosis. No aortic regurgitation is present. Mitral Valve The mitral valve is normal in structure. No evidence of mitral valve stenosis. Trace mitral regurgitation. Tricuspid Valve The tricuspid valve leaflets are thin and pliable. Trace tricuspid regurgitation. There is insufficient TR jet to estimate RVSP. Pulmonic Valve The pulmonary valve is normal in structure. Trace pulmonic regurgitation. Great Vessels The aortic root is normal in size. The ascending aorta is not well-visualized. IVC is normal in size and collapses >50% with inspiration. Pericardium There is no pericardial effusion. Other Information Study Quality: Fair Conclusion Normal biventricular systolic function. No significant valvular stenosis or regurgitation. Electronically signed by : Shaye Friedman MD 10/15/2024 11:29:37
[2024-10-15 06:53] LABS: Albumin Level 3.2 g/dl (3.5-5.0); Chloride 102 mmol/L (98-107); Potassium 3.4 mmoL/L (3.5-5.1); Sodium 134 mmol/L (136-145)
[2024-10-15 06:55] LABS: Anion Gap 3.4 mEq/L (5-15); Blood Urea Nitrogen 12 mg/dl (9-20); Carbon Dioxide 32 mmol/L (22.0-30.0); Creatinine Clearance Estimated 124 mL/min (50-200); Estimated Glomerular Filt Rate 85 ml/min (>60); GFR (African American) 103 ML/MIN (>60); Lactic Acid 1.2 mmol/L (0.7-2.1)
[2024-10-15 06:56] LABS: Alanine Aminotransferase 43 U/L (12-78); Albumin/Globulin Ratio 1.3 (1.1-1.8); Alkaline Phosphatase 96 U/L (38-126); Aspartate Amino Transferase 57 U/L (17-59); Bilirubin,Total 1.1 mg/dl (0.2-1.3); Calcium 8.4 mg/dl (8.4-10.2); Globulin 2.5 g/dL (1.3-3.2); Glucose 92 mg/dl (74-100); Magnesium 1.8 mg/dl (1.6-2.3); Total Protein,Serum 5.7 g/dl (6.3-8.2)
[2024-10-15 07:24] LABS: Prostate Specific Ag Screen 8.7 ng/ml (0.0-4.0)
[2024-10-15] MEDS: DEFINITY US ECHO CONTRAST 2ML INJ 2 MG IV (07:27)
--- NOTE | 2024-10-15 08:02 | HMH.PHAINT1 ---
Pharmacy Intervention Comments: [facility] MED[facility]
[2024-10-15] MEDS: POTASSIUM CHLORIDE 20MEQ TAB 20 MEQ PO ×2 (08:39→12:25)
[2024-10-15] MEDS: METOPROLOL SUCCINATE XL 100MG TABLET 100 MG PO (08:39)
[2024-10-15] MEDS: metOLazone 2.5MG TABLET 2.5 MG PO (08:39)
[2024-10-15] MEDS: AMLODIPINE 5MG TABLET 5 MG PO (08:39)
[2024-10-15] MEDS: IRBESARTAN 150MG TAB 150 MG PO (08:39)
--- NOTE | 2024-10-15 09:07 | CA_ITS ---
FINAL REPORT CLINICAL HISTORY: PE COMPARISON: None FINDINGS: Color Doppler, duplex Doppler and compression sonography of the bilateral lower extremities was performed. There is no evidence of deep venous thrombosis from the level of the groin to the calf. The deep veins are patent and compressible. IMPRESSION: No evidence of deep venous thrombosis bilateral lower extremities. Reviewed, Interpreted and Dictated by Vic Strickland III, MD Transcribed by Ofelia Rock Authenticated and . [facility]
--- NOTE | 2024-10-15 09:08 | P.CONCA_ITS ---
History of Present Illness History of Present Illness Consult date: 10/15/24 Requesting physician: Bry Ernst Chief complaint: PE, hypoglycemia Additional Medical History:: 1. Hypertension A. Echo, 2020, EF 55% without significant valve disease 2. Diabetes mellitus, treated since 1995 A. Hgb A1C 6.5 on 10/14/2024 3. Obesity 4. Daily beer use of approximately 3 beers 5. Found down at home, 10/14/2024 A. Hypoglycemia, PE and left vertebral artery stenosis 6. Hyperlipidemia A. LDL 7. Coronary artery calcification A. CAC 40 in 2020 History of present illness: 64-year-old black male admitted through the ER after being found down at home on well patient visit. ER workup was extensive and included findings of pulmonary embolus in the right lung, hypoglycemia improved with IV treatment and a densely calcified left vertebral artery stenosis on CTA. Dr. Clarke was consulted in the ER for discussion and recommendations. Patient was admitted and started on IV heparin. Today patient is alert and oriented but does not recall how he ended up on the floor. He watched a [employer] game and then went to bed and then the next thing he remembers is being in the ER. He denies any prior history of syncope but does relate recurring episodes of hypoglycemia while working that responded to soft drinks weekly. He was recently laid off in July of this year and has been at home since then. He denies any history of OK or cardiac issues that he is aware of. Previous cardiac CT in 2020 showed calcium score of 40. Echocardiogram in 2020 showed normal function with no significant valve disease. EKG this admission shows sinus rhythm at [address] abnormalities. Troponins this admission are normal. [facility] Disclaimer: The information contained in this section may have been updated after the patient was seen, as this information can be updated by other users. Medical History Coronary artery disease Daytime somnolence Diabetes type I Dyspnea HLD (hyperlipidemia) HTN (hypertension) Restless sleeper Social History Smoking Status: Never smoker alcohol intake: current alcohol intake frequency: holidays/special occasions only substance use type: denies use current occupational status: employed and disabled Travel in the last 8 weeks: Inside the [place] Review of Systems Review of Systems Review of systems:: pertinent systems reviewed and negative unless documented below *Cardiovascular Cardiovascular: Denies chest pain and Reports dyspnea on exertion *Respiratory Respiratory: Reports dyspnea on exertion *Neurologic Neurologic: Reports as per HPI Exam Data for Last 24 hours Vital signs and Labs for Last 24 Hours: Temp Pulse Resp BP Pulse Ox O2 Del Method 97.8 F 90 18 169/85 H 98 Room Air 10/15/24 04:37 10/15/24 08:00 10/15/24 08:00 10/15/24 08:00 10/15/24 08:00 10/15/24 08:00 Laboratory Results - last 24 hr 10/14/24 17:36: WBC 15.4 H, RBC 4.41 L, Hgb 14.4, Hct 45.1, MCV 102.4 H, MCH 32.6 H, MCHC 31.8, RDW 13.8, Plt Count 469 H, MPV 7.0 L, Neut % (Auto) 89.8 H, Lymph % (Auto) 5.2 L, Clay % (Auto) 3.4, Eos % (Auto) 1.3, Baso % (Auto) 0.4, Neut # (Auto) 13.8 H, Lymph # (Auto) 0.8, Clay # (Auto) 0.5, Eos # (Auto) 0.2, Baso # (Auto) 0.1, Total Counted 100, Neutrophils % (Manual) 91 H, Lymphocytes % (Manual) 5 L, Monocytes % (Manual) 4, Platelet Estimate Normal, Anisocytosis 2+, Microcytosis 1+, Macrocytosis 2+, Target Cells 1+, PT 9.8 L, INR 0.86 L, APTT 23 .7 10/14/24 17:36: APTT 24.5 L, Sodium 136, Potassium 3.5, Chloride 100, Carbon Dioxide 30, Anion Gap 9.5, BUN 12, Creatinine 0.80, Estimated Creat Clear 123, Estimated GFR 98, Est GFR ( Amer) 118, Glucose 175 H, Hemoglobin A1c 6.5 H, Calcium 9.0, Magnesium 1.7, Total Bilirubin 0.7, AST 76 H, ALT 47, Alkaline Phosphatase 105, Total Creatine Kinase 248 H, Troponin I < 0.01, NT-Pro-B Natriuret Pep 813 H, Total Protein 5.7 L, Albumin 3.3 L, Globulin 2.4, Albumin/Globulin Ratio 1.4, Lipase 39, TSH 0.92, Thyroxine (T4) 6.3, Salicylates < 1.0 L, Acetaminophen < 10 L, Plasma/Serum Alcohol 15 H, Acetone Level None detected, HIV 1&2 Antibody Rapid Nonreactive 10/14/24 17:37: VBG pH 7.44 H, VBG pCO2 44.7, VBG pO2 92.8 H, VBG HCO3 29.4, VBG Total CO2 30.8 H, VBG O2 Saturation 97.2 H, VBG Base Excess 5.2 H, VBG Lactic Acid 2.0 10/14/24 17:48: Blood Type B Positive, Antibody Screen Negative 10/14/24 17:58: Lactate 1.3 10/14/24 18:16: Urine Color Yellow, Urine Appearance Clear, Urine pH 6.5, Ur Specific [place] 1.020, Urine Protein Negative, Urine Glucose (UA) 1+, Urine Ketones Trace, Urine Blood Negative, Urine Nitrate Negative, Urine Bilirubin Negative, Urine Urobilinogen 1.0, Ur Leukocyte Esterase Negative, Urine RBC Occasional, Urine WBC 3-5, Ur Squamous Epith Cells 20-50, Urine Bacteria 2+, Urine Mucus 1+, Urine Opiates Screen Negative, Urine Methadone Screen Negative, Ur Barbituates Screen Negative, Ur Phencyclidine Scrn Negative, Ur Amphetamines Screen Negative, U Benzodiazepines Scrn Negative, Urine Cocaine Screen Negative, U Marijuana (THC) Screen Negative 10/14/24 19:40: Chlamy pneumoniae PCR Not detected, Adenovirus (PCR) Not detected, B. pertussis DNA (PCR) Not detected, Coronavirus OC43 (PCR) Not detected, Coronavirus HKU1 (PCR) Not detected, Coronavirus 229E (PCR) Not detected, SARS-CoV-2 (PCR) Not detected 10/14/24 19:40: SARS-CoV-2 (PCR) Not detected, Coronavirus NL63 (PCR) Not detected, Human Metapneumovir PCR Not detected, Influenza A (H1) PCR Not detected, Influ A (H1N1/09) PCR Not detected, Influenza A (H3) PCR Not detected, Influenza Type A (PCR) Not detected, Influenza A Untype (PCR) Not detected, Influenza Type B (PCR) Not detected 10/14/24 19:40: Influenza Type B (PCR) Not detected, M. pneumoniae (PCR) Not detected, Parainfluenza 1 (PCR) Not detected, Parainfluenza 2 (PCR) Not detected, Parainfluenza 3 (PCR) Not detected, Parainfluenza 4 (PCR) Not detected, RSV (PCR) Not detected, Entero/Rhino (PCR) Not detected 10/14/24 22:10: PT 11.1, INR 0.99, Troponin I < 0.01 10/14/24 22:34: POC Glucose 182 H 10/15/24 01:10: Troponin I < 0.01 10/15/24 05:03: POC Glucose 83 10/15/24 06:30: WBC 14.5 H, RBC 3.97 L, Hgb 13.2 L, Hct 40.3 L, MCV 101.4 H, MCH 33.3 H, MCHC 32.9, RDW 14.1, Plt Count 423, MPV 7.2 L, Neut % (Auto) 83.5 H, Lymph % (Auto) 8.5 L, Clay % (Auto) 5.5, Eos % (Auto) 1.9, Baso % (Auto) 0.6, Neut # (Auto) 12.1 H, Lymph # (Auto) 1.2, Clay # (Auto) 0.8, Eos # (Auto) 0.3, Baso # (Auto) 0.1, Sodium 134 L, Potassium 3.4 L, Chloride 102, Carbon Dioxide 32 H, Anion Gap 3.4 L, BUN 12, Creatinine 0.90, Estimated Creat Clear 124, Estimated GFR 85, Est GFR ( Amer) 103, Glucose 92 D, Lactate 1.2, Calcium 8.4, Magnesium 1.8, Total Bilirubin 1.1, AST 57, ALT 43, Alkaline Phosphatase 96, Total Protein 5.7 L, Albumin 3.2 L, Globulin 2.5, Albumin/Sameera bulin Ratio 1.3, PSA Screen 8.7 H I & O for Last 24 hours: Intake & Output 10/12/24 10/13/24 10/14/24 10/15/24 11:59 11:59 11:59 11:59 Intake Total 2221 / 2221 Output Total 250 / 250 Balance 1971 / 1971 Weight 254 lb 9.6 oz Constitutional Constitutional: no acute distress, mild distress and moderate distress *Routine Respiratory Exam Respiratory: Present CTA bilaterally *Routine Cardiovascular Exam Cardiovascular: Present RRR; Absent murmur, gallop or rubs *Routine Extremities Exam Extremities: Present edema *Routine Neurological Exam Neurological: Present alert, oriented X3 and CN II-XII intact Meds Home Medications and Allergies Home Medications ?Medication ?Instructions ?Recorded ?Confirmed ?Type metoprolol succinate 100 mg 100 mg PO DAILY 01/26/21 10/15/24 History tablet,extended release 24 hr potassium chloride 20 mEq 20 meq PO TID 01/26/21 10/15/24 History tablet,extended release(part/cryst) rosuvastatin 40 mg tablet 40 mg PO HS 01/26/21 10/15/24 History furosemide 20 mg tablet 20 mg PO DAILY 12/21/22 10/15/24 History allopurinol 300 mg tablet 300 mg PO DAILY 10/14/24 10/15/24 History insulin human U-100 NPH-regulr 45 unit SQ AM 10/14/24 10/15/24 History 70-30 mix 100 unit/mL subcutaneous susp (Humulin 70/30 U-100 Insulin) amlodipine 5 mg tablet 5 mg PO DAILY 10/15/24 10/15/24 History ascorbic acid (vitamin C) 500 mg 500 mg PO DAILY 10/15/24 10/15/24 History tablet cholecalciferol (vitamin D3) 100 100 mcg PO DAILY 10/15/24 10/15/24 History mcg (4,000 unit) tablet empagliflozin 10 mg tablet 10 mg PO DAILY 10/15/24 10/15/24 History ferrous gluconate 324 mg (38 mg 324 mg PO DAILY 10/15/24 10/15/24 History iron) tablet insulin glargine 100 unit/mL 25 unit SQ DAILY 10/15/24 10/15/24 History subcutaneous solution (Lantus U-100 Insulin) metolazone 5 mg tablet 5 mg PO DAILY 10/15/24 10/15/24 History triamterene 37.5 1 tab PO DAILY 10/15/24 10/15/24 History mg-hydrochlorothiazide 25 mg tablet valsartan 160 mg tablet 160 mg PO DAILY 10/15/24 10/15/24 History New Prescriptions to Start Prescriptions: Allergies Allergy/AdvReac Type Severity Reaction Status Date / Time No Known Allergies Allergy Unverified 10/15/24 07:22 Assessment and Plan *Assessment and plan (1) Pulmonary emboli: Status: Acute Qualifiers: Acute cor pulmonale presence: unspecified Chronicity: unspecified Pulmonary embolism type: unspecified Qualified Code(s): I26.99 - Other pulmonary embolism without acute cor pulmonale Category: Medical Code(s): I26.99 - Other pulmonary embolism without acute cor pulmonale (2) Hypoglycemia: Status: Acute Category: Medical Code(s): E16.2 - Hypoglycemia, unspecified (3) Syncope and collapse: Status: Acute Category: Medical Code(s): R55 - Syncope and collapse (4) Diabetes type I: Status: Acute Qualifiers: Diabetes mellitus complication status: without complication Qualified Code(s): E10.9 - Type 1 diabetes mellitus without complications Category: Medical Code(s): E10.9 - Type 1 diabetes mellitus without complications (5) HTN (hypertension): Status: Acute Qualifiers: Hypertension type: essential hypertension Qualified Code(s): I10 - Essential (primary) hypertension Category: Medical Code(s): I10 - Essential (primary) hypertension (6) HLD (hyperlipidemia): Status: Acute Qualifiers: Hyperlipidemia type: other hyperlipidemia Qualified Code(s): E78.49 - Other hyperlipidemia Category: Medical Code(s): E78.5 - Hyperlipidemia, unspecified (7) Stenosis of left vertebral artery: Status: Acute Category: Medical Code(s): I65.02 - Occlusion and stenosis of left vertebral artery Plan 1. Patient found unresponsive -Hypoglycemia, treated with IV medication -Right-sided pulmonary embolus on chest CTA with RV/LV ratio of 0.8, started on IV heparin -Left vertebral artery stenosis on neck CTA, ?VBI symptoms 2. Pulmonary embolus, right side, RV/LV ratio 0.8 -IV heparin -Normal oxygen saturation on room air -Check lower extremity venous Dopplers 3. Diabetes mellitus with hypoglycemia, on insulin at home -Defer to Dr. Morales -Hemoglobin A1c 6.5 this admission -continue Jardiance 4. Peripheral arterial disease with left vertebral artery stenosis and possible VBI symptoms as contributing to patient's condition prior to admission -Will need ischemic workup due to high likelihood for coronary artery disease in hypertensive diabetic with known coronary artery calcification 5. Hypertension -Check echo -Continue home medications of amlodipine, metoprolol and Maxide along with valsartan 6. Hyperlipidemia -Continue statin therapy 7. Recurrent lower extremity edema, chronic -Continue Lasix 8. Coronary artery calcification score of [address] in 2020 -troponins normal this admission Echo shows normal biventricular systolic function with no signficant valve disease. LE venous doppler negative for DVT. Stable from cardiology standpoint to discharge when Dr. Ernst is ready. Home med recommendations: Eliquis 5 mg twice daily Amlodipine 5 mg daily Metoprolol 100 mg daily Valsartan 160 mg daily Maxzide 1 tab daily Crestor 40 mg daily Lasix And metoprolol as previously directed Jardiance 10 mg daily Follow up with OR medical for further cardiac evaluation.
[2024-10-15] MEDS: ENOXAPARIN 120MG/0.8ML SYRINGE 115 MG SUBCUT (11:35)
[2024-10-15 12:05] LABS: POC Glucose,Bedside 156 (70-110)
[2024-10-15] MEDS: MAGNESIUM SULFATE IN WATER 2 GM/50 ML PIGGYBACK IV (12:25)
--- NOTE | 2024-10-15 12:36 | P.DS_ITS ---
General Admission date:: 10/14/24 HPI HPI HPI: The ER physician is called me down to the emergency room to evaluate. this [employer] . History of having a welfare check ambulance arrived to find him unresponsive lying on the floor., Unsure of complete time that he was down.. Patient was found to be hypoglycemic, EMS responded with this oxygen and brought him to the emergency room., Patient did improve. Emergency room physician called the [facility] for transfer. [facility] informed the ER physician that their ER was totally full and they had no beds for him and that he would have to be kept which would be a minimum of 4 hours.. For the patient's comfort and to the fact that they may not be able to transfer him in a reasonable period of time and this condition needs to be cared for he has been placed on the floor in a stepdown bed. ER provider note below 64-year-old male history of type 1 diabetes and CAD, hypertension, hyperlipidemia presenting found down. Patient's family was unable to get a hold of him today, 10/14, so called well check on him. Please arrive, patient was found down, largely unresponsive. EMS was called. On arrival, fingerstick blood glucose for EMS was read as low. Unable to obtain IV access, so gave him 1 mg glucagon IM with mild improvement in mental status. Brought patient to the emergency department. On arrival, patient appears ill. Diaphoretic, pale, pulse 95-100. When rolling into the emergency department, patient able to follow commands. Asked to give thumbs up, was able to do so immediately. Pupils 3 mm and reactive bilaterally. No evidence of scleral icterus. Mucous membranes are dry. Patient oriented to person and situation. Has no complaints. States that he does not have any chest pain, headache, vision changes, nausea or vomiting,, abdominal pain, but he also has no recollection of how he ended up on the ground. States that the last thing he remembers is yesterday. Patient states that he does drink daily states that he last drank 24 hours ago if not a little longer. Denies drug use. History was obtained via conversation with patient, EMS, family. On arrival, patient hemodynamically stable, alert, oriented to person and situation, GCS 15, moving all extremities spontaneously, pupils equal and reactive to light. Full physical exam performed and significant for 64-year-old male who is very ill-appearing. Diaphoretic, pale, borderline tachycardic. Inferior wheezes bilaterally. Following commands. Strength is equal in upper and lower extremities. Pulses equal and symmetric in upper and lower extremities. Abdomen soft, nontender, nondistended. Cardiac exam normal otherwise. Differential includes metabolic abnormality, endocrinologic abnormality, intracranial bleed, accidental insulin overdose, purposeful insulin overdose, alcohol withdrawal seizure, other intoxication, ischemic stroke, seizure disorder, among others. Patient placed on continuous cardiac monitoring and continuous pulse ox with initial blood pressure 166/95, heart rate 86, saturation 8% on room air. Independent interpretation of EKG shows sinus rhythm with no ST or T wave changes concerning for acute ischemia. MA 170, QRS 102, QTc 420. Normal axis.. 2 ultrasound-guided IVs were placed due to difficult IV access. Patient was given D50 bolus for symptomatic management and correction of underlying abnor malities. Also started on D10 drip at 100 mL/h. Workup independently interpreted and significant for leukocytosis 15,000 with neutrophilia. Coags within normal limits. VBG largely nonactionable. Lactate negative. Chemistry nonactionable with normal kidney function. A1c 6.5. CK mildly elevated at 248. Troponin negative, BNP elevated at 813. Urinalysis nonactionable.. On independent interpretation of imaging, CT angiogram of the chest with right middle and lower lobes. RV to LV ratio 0.8. No acute intracranial hemorrhage, no acute vascular abnormality of the head or neck. See radiology read for full review of final results. Patient started on heparin drip given elevated BNP and right sided pulmonary emboli. COVID swab obtained for transfer to the [place]. this was negative. Because patient high risk for clinical decompensation if discharged, deemed appropriate for transfer and inpatient admission. Results were relayed to patient who voiced understanding and patient was agreeable to transfer, inpatient admission, and management. [facility] states that they had 4 more hours before they are able to accept patient for transfer. Because of this, hospital medicine was contacted for further evaluation. To be admitted. I do agree with the ER physician so we now have placed him in to the second floor in a stepdown unit with continuous monitoring. Cardiology has been called for consult. Patient is stable at this time but noting once we have got to the floor did find that his feet were in terrible condition. So podiatry consult has been ordered. This is because that may be several days before there could [facility] so we will just consider him ours until they call us and say they are can accept him as a transfer. Will keep close monitoring as I have no idea if this is pulmonary embolism within the lungs or the cause of his collapse. Or if it was related to low blood sugar may be related to alcohol use. During exam, I asked the patient about his medication he had a bag full, he was unsure what his family brought because he has new medicines from the [place], so I will not be completely sure what his accurate medications are until checked by pharmacy. 10/15/24: Podiatry consult Patient presents to the emergency department that was found unresponsive in his home. He is a but [facility] was unable to accept his transfer been admitted to second floor step-down bed. Patient is awaiting cardiology consultation and podiatry has now been consulted. Patient has diabetic foot with extremely thickened skin with cracks, nails long dystrophic and have not been trimmed for quite some time plan to trim patient's nails and evaluate the condition of his skin. Hospital Course Hospital Course Hospital Course: #Syncope #Right middle, lower lobe pulmonary embolus #Left vertebral artery stenosis, severe - Above findings on CTA. - Cardiology consulted, did not think syncope was from left vetebral artery stenosis. Pulm embolus can explain this. - Rest of workup unremarkable. Vitals stable, 100% on room air. - ECHO normal biventricular function, no significant valvular issues. - Discharged with Eliquis 10mg BID for 10 days, then 5mg BID thereafter. #Type 2 diabetes - Hemoglobin A1c 6.5 this admission. Blood sugars stable during admission. - Continue home regimen. #Hypertension - Pressures stable. Continue home regimen. #Hyperlipidemia - Continue home statin. Exam Data for Last 24 hours Vital signs and Labs for Last 24 Hours: Temp Pulse Resp BP Pulse Ox O2 Del Method 97.8 F 80 19 120/67 97 Room Air 10/15/24 04:37 10/15/24 10:00 10/15/24 10:00 10/15/24 10:00 10/15/24 10:00 10/15/24 11:00 Laboratory Results - last 24 hr 10/14/24 17:36: WBC 15.4 H, RBC 4.41 L, Hgb 14.4, Hct 45.1, MCV 102.4 H, MCH 32.6 H, MCHC 31.8, RDW 13.8, Plt Count 469 H, MPV 7.0 L, Neut % (Auto) 89.8 H, Lymph % (Auto) 5.2 L, [place] % (Auto) 3.4, Eos % (Auto) 1.3, Baso % (Auto) 0.4, Neut # (Auto) 13.8 H, Lymph # (Auto) 0.8, [place] # (Auto) 0.5, Eos # (Auto) 0.2, Baso # (Auto) 0.1, Total Counted 100, Neutrophils % (Manual) 91 H, Lymphocytes % (Manual) 5 L, Monocytes % (Manual) 4, Platelet Estimate Normal, Anisocytosis 2+, Microcytosis 1+, Macrocytosis 2+, Target Cells 1+, PT 9.8 L, INR 0.86 L, APTT 23.7 10/14/24 17:36: APTT 24.5 L, Sodium 136, Potassium 3.5, Chloride 100, Carbon Dioxide 30, Anion Gap 9.5, BUN 12, Creatinine 0.80, Estimated Creat Clear 123, Estimated GFR 98, Est GFR ( Amer) 118, Glucose 175 H, Hemoglobin A1c 6.5 H, Calcium 9.0, Magnesium 1.7, Total Bilirubin 0.7, AST 76 H, ALT 47, Alkaline Phosphatase 105, Total Creatine Kinase 248 H, Troponin I < 0.01, NT-Pro-B Natriuret Pep 813 H, Total Protein 5.7 L, Albumin 3.3 L, Globulin 2.4, Albumin/Globulin Ratio 1.4, Lipase 39, TSH 0.92, Thyroxine (T4) 6.3, Salicylates < 1.0 L, Acetaminophen < 10 L, Plasma/Serum Alcohol 15 H, Acetone Level None detected, HIV 1&2 Antibody Rapid Nonreactive 10/14/24 17:37: VBG pH 7.44 H, VBG pCO2 44.7, VBG pO2 92.8 H, VBG HCO3 29.4, VBG Total CO2 30.8 H, VBG O2 Saturation 97.2 H, VBG Base Excess 5.2 H, VBG Lactic Acid 2.0 10/14/24 17:48: Blood Type B Positive, Antibody Screen Negative 10/14/24 17:58: Lactate 1.3 10/14/24 18:16: Urine Color Yellow, Urine Appearance Clear, Urine pH 6.5, Ur Specific [place] 1.020, Urine Protein Negative, Urine Glucose (UA) 1+, Urine Ketones Trace, Urine Blood Negative, Urine Nitrate Negative, Urine Bilirubin Negative, Urine Urobilinogen 1.0, Ur Leukocyte Esterase Negative, Urine RBC Occasional, Urine WBC 3-5, Ur Squamous Epith Cells 20-50, Urine Bacteria 2+, Urine Mucus 1+, Urine Opiates Screen Negative, Urine Methadone Screen Negative, Ur Barbituates Screen Negative, Ur Phencyclidine Scrn Negative, Ur Amphetamines Screen Negative, U Benzodiazepines Scrn Negative, Urine Cocaine Screen Negative, U Marijuana (THC) Screen Negative 10/14/24 19:40: Chlamy pneumoniae PCR Not detected, Adenovirus (PCR) Not detected, B. pertussis DNA (PCR) Not detected, Coronavirus OC43 (PCR) Not detected, Coronavirus HKU1 (PCR) Not detected, Coronavirus 229E (PCR) Not detected, SARS-CoV-2 (PCR) Not detected 10/14/24 19:40: SARS-CoV-2 (PCR) Not detected, Coronavirus NL63 (PCR) Not detected, Human Metapneumovir PCR Not detected, Influenza A (H1) PCR Not detected, Influ A (H1N1/09) PCR Not detected, Influenza A (H3) PCR Not detected, Influenza Type A (PCR) Not detected, Influenza A Untype (PCR) Not detected, Influenza Type B (PCR) Not detected 10/14/24 19:40: Influenza Type B (PCR) Not detected, M. pneumoniae (PCR) Not detected, Parainfluenza 1 (PCR) Not detected, Parainfluenza 2 (PCR) Not detected, Parainfluenza 3 (PCR) Not detected, Parainfluenza 4 (PCR) Not detected, RSV (PCR) Not detected, Entero/Rhino (PCR) Not detected 10/14/24 22:10: PT 11.1, INR 0.99, Troponin I < 0.01 10/14/24 22:34: POC Glucose 182 H 10/15/24 01:10: Troponin I < 0.01 10/15/24 05:03: POC Glucose 83 10/15/24 06:30: WBC 14.5 H, RBC 3.97 L, Hgb 13.2 L, Hct 40.3 L, MCV 101.4 H, MCH 33.3 H, MCHC 32.9, RDW 14.1, Plt Count 423, MPV 7.2 L, Neut % (Auto) 83.5 H, Lymph % (Auto) 8.5 L, [place] % (Auto) 5.5, Eos % (Auto) 1.9, Baso % (Auto) 0.6, Neut # (Auto) 12.1 H, Lymph # (Auto) 1.2, [place] # (Auto) 0.8, Eos # (Auto) 0.3, B aso # (Auto) 0.1, Sodium 134 L, Potassium 3.4 L, Chloride 102, Carbon Dioxide 32 H, Anion Gap 3.4 L, BUN 12, Creatinine 0.90, Estimated Creat Clear 124, Estimated GFR 85, Est GFR ( Amer) 103, Glucose 92 D, Lactate 1.2, Calcium 8.4, Magnesium 1.8, Total Bilirubin 1.1, AST 57, ALT 43, Alkaline Phosphatase 96, Total Protein 5.7 L, Albumin 3.2 L, Globulin 2.5, Albumin/Globulin Ratio 1.3, PSA Screen 8.7 H 10/15/24 11:37: POC Glucose 156 H I & O for Last 24 hours: Intake & Output 10/12/24 10/13/24 10/14/24 10/15/24 23:59 23:59 23:59 23:59 Intake Total 2221 / 2221 Output Total 0 / 250 250 / 250 Balance 0 / 575 1970 / 1970 Weight 115.212 kg 115.485 kg Constitutional Constitutional: no acute distress *Routine HEENT Exam Head: Present normocephalic Eye: Present EOMI and PERRL ENT: Present mucous membranes moist *Routine Neck Exam Neck: Present supple; Absent lymphadenopathy *Routine Respiratory Exam Respiratory: Present CTA bilaterally *Routine Cardiovascular Exam Cardiovascular: Present RRR *Routine Abdominal Exam Abdominal: Present soft and normoactive bowel sounds; Absent tenderness *Routine Extremities Exam Extremities: Absent cyanosis, clubbing or edema *Routine Skin Exam Skin: Present warm; Absent rash *Routine Neurological Exam Neurological: Present alert and oriented X3 Results Data Completed and Pending Labs on day of discharge: Labs from last 24 hours 10/15/24 10/15/24 10/15/24 11:37 06:30 05:03 WBC 14.5 H RBC 3.97 L Hgb 13.2 L Hct 40.3 L MCV 101.4 H MCH 33.3 H MCHC 32.9 RDW 14.1 Plt Count 423 MPV 7.2 L Neut % (Auto) 83.5 H Lymph % (Auto) 8.5 L [place] % (Auto) 5.5 Eos % (Auto) 1.9 Baso % (Auto) 0.6 Neut # (Auto) 12.1 H Lymph # (Auto) 1.2 [place] # (Auto) 0.8 Eos # (Auto) 0.3 Baso # (Auto) 0.1 Total Counted Neutrophils % (Manual) Lymphocytes % (Manual) Monocytes % (Manual) Platelet Estimate Anisocytosis Microcytosis Macrocytosis Target Cells PT INR APTT VBG pH VBG pCO2 VBG pO2 VBG HCO3 VBG Total CO2 VBG O2 Saturation VBG Base Excess VBG Lactic Acid Sodium 134 L Potassium 3.4 L Chloride 102 Carbon Dioxide 32 H Anion Gap 3.4 L BUN 12 Creatinine 0.90 Estimated Creat Clear 124 Estimated GFR 85 Est GFR ( Amer) 103 Glucose 92 D POC Glucose 156 H 83 Hemoglobin A1c Lactate 1.2 Calcium 8.4 Magnesium 1.8 Total Bilirubin 1.1 AST 57 ALT 43 Alkaline Phosphatase 96 Total Creatine Kinase Troponin I NT-Pro-B Natriuret Pep Total Protein 5.7 L Albumin 3.2 L Globulin 2.5 Albumin/Globulin Ratio 1.3 Lipase PSA Screen 8.7 H TSH Thyroxine (T4) Urine Color Urine Appearance Urine pH Ur Specific [place] Urine Protein Urine Glucose (UA) Urine Ketones Urine Blood Urine Nitrate Urine Bilirubin Urine Urobilinogen Ur Leukocyte Esterase Urine RBC Urine WBC Ur Squamous Epith Cells Urine Bacteria Urine Mucus Salicylates Urine Opiates Screen Urine Methadone Screen Acetaminophen Ur Barbituates Screen Ur Phencyclidine Scrn Ur Amphetamines Screen U Benzodiazepines Scrn Urine Cocaine Screen U Marijuana (THC) Screen Plasma/Serum Alcohol Acetone Level Chlamy pneumoniae PCR Adenovirus (PCR) B. pertussis DNA (PCR) Coronavirus OC43 (PCR) Coronavirus HKU1 (PCR) Coronavirus 229E (PCR) SARS-CoV-2 (PCR) Coronavirus NL63 (PCR) HIV 1&2 Antibody Rapid Human Metapneumovir PCR Influenza A (H1) PCR Influ A (H1N1/09) PCR Influenza A (H3) PCR Influenza Type A (PCR) Influenza A Untype (PCR) Influenza Type B (PCR) M. pneumoniae (PCR) Parainfluenza 1 (PCR) Parainfluenza 2 (PCR) Parainfluenza 3 (PCR) Parainfluenza 4 (PCR) RSV (PCR) Entero/Rhino (PCR) Blood Type Antibody Screen 10/15/24 10/14/24 10/14/24 01:10 22:34 22:10 WBC RBC Hgb Hct MCV MCH MCHC RDW Plt Count MPV Neut % (Auto) Lymph % (Auto) [place] % (Auto) Eos % (Auto) Baso % (Auto) Neut # (Auto) Lymph # (Auto) [place] # (Auto) Eos # (Auto) Baso # (Auto) Total Counted Neutrophils % (Manual) Lymphocytes % (Manual) Monocytes % (Manual) Platelet Estimate Anisocytosis Microcytosis Macrocytosis Target Cells PT 11.1 INR 0.99 APTT VBG pH VBG pCO2 VBG pO2 VBG HCO3 VBG Total CO2 VBG O2 Saturation VBG Base Excess VBG Lactic Acid Sodium Potassium Chloride Carbon Dioxide Anion Gap BUN Creatinine Estimated Creat Clear Estimated GFR Est GFR ( Amer) Glucose POC Glucose 182 H Hemoglobin A1c Lactate Calcium Magnesium Total Bilirubin AST ALT Alkaline Phosphatase Total Creatine Kinase Troponin I < 0.01 < 0.01 NT-Pro-B Natriuret Pep Total Protein Albumin Globulin Albumin/Globulin Ratio Lipase PSA Screen TSH Thyroxine (T4) Urine Color Urine Appearance Urine pH Ur Specific [place] Urine Protein Urine Glucose (UA) Urine Ketones Urine Blood Urine Nitrate Urine Bilirubin Urine Urobilinogen Ur Leukocyte Esterase Urine RBC Urine WBC Ur Squamous Epith Cells Urine Bacteria Urine Mucus Salicylates Urine Opiates Screen Urine Methadone Screen Acetaminophen Ur Barbituates Screen Ur Phencyclidine Scrn Ur Amphetamines Screen U Benzodiazepines Scrn Urine Cocaine Screen U Marijuana (THC) Screen Plasma/Serum Alcohol Acetone Level Chlamy pneumoniae PCR Adenovirus (PCR) B. pertussis DNA (PCR) Coronavirus OC43 (PCR) Coronavirus HKU1 (PCR) Coronavirus 229E (PCR) SARS-CoV-2 (PCR) Coronavirus NL63 (PCR) HIV 1&2 Antibody Rapid Human Metapneumovir PCR Influenza A (H1) PCR Influ A (H1N1/) PCR Influenza A (H3) PCR Influenza Type A (PCR) Influenza A Untype (PCR) Influenza Type B (PCR) M. pneumoniae (PCR) Parainfluenza 1 (PCR) Parainfluenza 2 (PCR) Parainfluenza 3 (PCR) Parainfluenza 4 (PCR) RSV (PCR) Entero/Rhino (PCR) Blood Type Antibody Screen 10/14/24 10/14/24 10/14/24 19:40 19:40 19:40 WBC RBC Hgb Hct MCV MCH MCHC RDW Plt Count MPV Neut % (Auto) Lymph % (Auto) [place] % (Auto) Eos % (Auto) Baso % (Auto) Neut # (Auto) Lymph # (Auto) [place] # (Auto) Eos # (Auto) Baso # (Auto) Total Counted Neutrophils % (Manual) Lymphocytes % (Manual) Monocytes % (Manual) Platelet Estimate Anisocytosis Microcytosis Macrocytosis Target Cells PT INR APTT VBG pH VBG pCO2 VBG pO2 VBG HCO3 VBG Total CO2 VBG O2 Saturation VBG Base Excess VBG Lactic Acid Sodium Potassium Chloride Carbon Dioxide Anion Gap BUN Creatinine Estimated Creat Clear Estimated GFR Est GFR ( Amer) Glucose POC Glucose Hemoglobin A1c Lactate Calcium Magnesium Total Bilirubin AST ALT Alkaline Phosphatase Total Creatine Kinase Troponin I NT-Pro-B Natriuret Pep Total Protein Albumin Globulin Albumin/Globulin Ratio Lipase PSA Screen TSH Thyroxine (T4) Urine Color Urine Appearance Urine pH Ur Specific [place] Urine Protein Urine Glucose (UA) Urine Ketones Urine Blood Urine Nitrate Urine Bilirubin Urine Urobilinogen Ur Leukocyte Esterase Urine RBC Urine WBC Ur Squamous Epith Cells Urine Bacteria Urine Mucus Salicylates Urine Opiates Screen Urine Methadone Screen Acetaminophen Ur Barbituates Screen Ur Phencyclidine Scrn Ur Amphetamines Screen U Benzodiazepines Scrn Urine Cocaine Screen U Marijuana (THC) Screen Plasma/Serum Alcohol Acetone Level Chlamy pneumoniae PCR Not detected Adenovirus (PCR) Not detected B. pertussis DNA (PCR) Not detected Coronavirus OC43 (PCR) Not detected Coronavirus HKU1 (PCR) Not detected Coronavirus 229E (PCR) Not detected SARS-CoV-2 (PCR) Not detected Not detected Coronavirus NL63 (PCR) Not detected HIV 1&2 Antibody Rapid Human Metapneumovir PCR Not detected Influenza A (H1) PCR Not detected Influ A (H1N1/09) PCR Not detected Influenza A (H3) PCR Not detected Influenza Type A (PCR) Not detected Influenza A Untype (PCR) Not detected Influenza Type B (PCR) Not detected Not detected M. pneumoniae (PCR) Not detected Parainfluenza 1 (PCR) Not detected Parainfluenza 2 (PCR) Not detected Parainfluenza 3 (PCR) Not detected Parainfluenza 4 (PCR) Not detected RSV (PCR) Not detected Entero/Rhino (PCR) Not detected Blood Type Antibody Screen 10/14/24 10/14/24 10/14/24 18:16 17:58 17:48 WBC RBC Hgb Hct MCV MCH MCHC RDW Plt Count MPV Neut % (Auto) Lymph % (Auto) [place] % (Auto) Eos % (Auto) Baso % (Auto) Neut # (Auto) Lymph # (Auto) [place] # (Auto) Eos # (Auto) Baso # (Auto) Total Counted Neutrophils % (Manual) Lymphocytes % (Manual) Monocytes % (Manual) Platelet Estimate Anisocytosis Microcytosis Macrocytosis Target Cells PT INR APTT VBG pH VBG pCO2 VBG pO2 VBG HCO3 VBG Total CO2 VBG O2 Saturation VBG Base Excess VBG Lactic Acid Sodium Potassium Chloride Carbon Dioxide Anion Gap BUN Creatinine Estimated Creat Clear Estimated GFR Est GFR ( Amer) Glucose POC Glucose Hemoglobin A1c Lactate 1.3 Calcium Magnesium Total Bilirubin AST ALT Alkaline Phosphatase Total Creatine Kinase Troponin I NT-Pro-B Natriuret Pep Total Protein Albumin Globulin Albumin/Globulin Ratio Lipase PSA Screen TSH Thyroxine (T4) Urine Color Yellow Urine Appearance Clear Urine pH 6.5 Ur Specific [place] 1.020 Urine Protein Negative Urine Glucose (UA) 1+ Urine Ketones Trace Urine Blood Negative Urine Nitrate Negative Urine Bilirubin Negative Urine Urobilinogen 1.0 Ur Leukocyte Esterase Negative Urine RBC Occasional Urine WBC 3-5 Ur Squamous Epith Cells 20-50 Urine Bacteria 2+ Urine Mucus 1+ Salicylates Urine Opiates Screen Negative Urine Methadone Screen Negative Acetaminophen Ur Barbituates Screen Negative Ur Phencyclidine Scrn Negative Ur Amphetamines Screen Negative U Benzodiazepines Scrn Negative Urine Cocaine Screen Negative U Marijuana (THC) Screen Negative Plasma/Serum Alcohol Acetone Level Chlamy pneumoniae PCR Adenovirus (PCR) B. pertussis DNA (PCR) Coronavirus OC43 (PCR) Coronavirus HKU1 (PCR) Coronavirus 229E (PCR) SARS-CoV-2 (PCR) Coronavirus NL63 (PCR) HIV 1&2 Antibody Rapid Human Metapneumovir PCR Influenza A (H1) PCR Influ A (H1N1/09) PCR Influenza A (H3) PCR Influenza Type A (PCR) Influenza A Untype (PCR) Influenza Type B (PCR) M. pneumoniae (PCR) Parainfluenza 1 (PCR) Parainfluenza 2 (PCR) Parainfluenza 3 (PCR) Parainfluenza 4 (PCR) RSV (PCR) Entero/Rhino (PCR) Blood Type B Positive Antibody Screen Negative 10/14/24 10/14/24 10/14/24 17:37 17:36 17:36 WBC 15.4 H RBC 4.41 L Hgb 14.4 Hct 45.1 MCV 102.4 H MCH 32.6 H MCHC 31.8 RDW 13.8 Plt Count 469 H MPV 7.0 L Neut % (Auto) 89.8 H Lymph % (Auto) 5.2 L [place] % (Auto) 3.4 Eos % (Auto) 1.3 Baso % (Auto) 0.4 Neut # (Auto) 13.8 H Lymph # (Auto) 0.8 [place] # (Auto) 0.5 Eos # (Auto) 0.2 Baso # (Auto) 0.1 Total Counted 100 Neutrophils % (Manual) 91 H Lymphocytes % (Manual) 5 L Monocytes % (Manual) 4 Platelet Estimate Normal Anisocytosis 2+ Microcytosis 1+ Macrocytosis 2+ Target Cells 1+ PT 9.8 L INR 0.86 L APTT 24.5 L 23.7 VBG pH 7.44 H VBG pCO2 44.7 VBG pO2 92.8 H VBG HCO3 29.4 VBG Total CO2 30.8 H VBG O2 Saturation 97.2 H VBG Base Excess 5.2 H VBG Lactic Acid 2.0 Sodium 136 Potassium 3.5 Chloride 100 Carbon Dioxide 30 Anion Gap 9.5 BUN 12 Creatinine 0.80 Estimated Creat Clear 123 Estimated GFR 98 Est GFR ( Amer) 118 Glucose 175 H POC Glucose Hemoglobin A1c 6.5 H Lactate Calcium 9.0 Magnesium 1.7 Total Bilirubin 0.7 AST 76 H ALT 47 Alkaline Phosphatase 105 Total Creatine Kinase 248 H Troponin I < 0.01 NT-Pro-B Natriuret Pep 813 H Total Protein 5.7 L Albumin 3.3 L Globulin 2.4 Albumin/Globulin Ratio 1.4 Lipase 39 PSA Screen TSH 0.92 Thyroxine (T4) 6.3 Urine Color Urine Appearance Urine pH Ur Specific [place] Urine Protein Urine Glucose (UA) Urine Ketones Urine Blood Urine Nitrate Urine Bilirubin Urine Urobilinogen Ur Leukocyte Esterase Urine RBC Urine WBC Ur Squamous Epith Cells Urine Bacteria Urine Mucus Salicylates < 1.0 L Urine Opiates Screen Urine Methadone Screen Acetaminophen < 10 L Ur Barbituates Screen Ur Phencyclidine Scrn Ur Amphetamines Screen U Benzodiazepines Scrn Urine Cocaine Screen U Marijuana (THC) Screen Plasma/Serum Alcohol 15 H Acetone Level None detected Chlamy pneumoniae PCR Adenovirus (PCR) B. pertussis DNA (PCR) Coronavirus OC43 (PCR) Coronavirus HKU1 (PCR) Coronavirus 229E (PCR) SARS-CoV-2 (PCR) Coronavirus NL63 (PCR) HIV 1&2 Antibody Rapid Nonreactive Human Metapneumovir PCR Influenza A (H1) PCR Influ A (H1N1/) PCR Influenza A (H3) PCR Influenza Type A (PCR) Influenza A Untype (PCR) Influenza Type B (PCR) M. pneumoniae (PCR) Parainfluenza 1 (PCR) Parainfluenza 2 (PCR) Parainfluenza 3 (PCR) Parainfluenza 4 (PCR) RSV (PCR) Entero/Rhino (PCR) Blood Type Antibody Screen DS: Diagnosis Discharge Diagnosis (1) Pulmonary emboli: Status: Acute Code(s): I26.99 - Other pulmonary embolism without acute cor pulmonale Qualifiers: Acute cor pulmonale presence: unspecified Chronicity: unspecified Pulmonary embolism type: unspecified Qualified Code(s): I26.99 - Other pulmonary embolism without acute cor pulmonale (2) Hypoglycemia: Status: Resolved Code(s): E16.2 - Hypoglycemia, unspecified (3) Syncope and collapse: Status: Resolved Code(s): R55 - Syncope and collapse (4) Diabetes type I: Status: Acute Code(s): E10.9 - Type 1 diabetes mellitus without complications Qualifiers: Diabetes mellitus complication status: without complication Qualified Code(s): E10.9 - Type 1 diabetes mellitus without complications (5) HTN (hypertension): Status: Acute Code(s): I10 - Essential (primary) hypertension Qualifiers: Hypertension type: essential hypertension Qualified Code(s): I10 - Essential (primary) hypertension (6) HLD (hyperlipidemia): Status: Acute Code(s): E78.5 - Hyperlipidemia, unspecified Qualifiers: Hyperlipidemia type: other hyperlipidemia Qualified Code(s): E78.49 - Other hyperlipidemia (7) Stenosis of left vertebral artery: Status: Acute Code(s): I65.02 - Occlusion and stenosis of left vertebral artery Meds Home Medications and Allergies Home Medications ?Medication ?Instructions ?Recorded ?Confirmed ?Type metoprolol succinate 100 mg 100 mg PO DAILY 01/26/21 10/15/24 History tablet,extended release 24 hr potassium chloride 20 mEq 20 meq PO TID 01/26/21 10/15/24 History tablet,extended release(part/cryst) rosuvastatin 40 mg tablet 40 mg PO HS 01/26/21 10/15/24 History furosemide 20 mg tablet 20 mg PO DAILY 12/21/22 10/15/24 History allopurinol 300 mg tablet 300 mg PO DAILY 10/14/24 10/15/24 History insulin human U-100 NPH-regulr 45 unit SQ AM 10/14/24 10/15/24 History 70-30 mix 100 unit/mL subcutaneous susp (Humulin 70/30 U-100 Insulin) amlodipine 5 mg tablet 5 mg PO DAILY 10/15/24 10/15/24 History apixaban 5 mg tablet (Eliquis) 5 mg PO BID #30 tabs 10/15/24 Rx apixaban 5 mg tablet (Eliquis) 10 mg (2 x 5 mg) PO BID 6 days #24 10/15/24 Rx tabs ascorbic acid (vitamin C) 500 mg 500 mg PO DAILY 10/15/24 10/15/24 History tablet cholecalciferol (vitamin D3) 100 100 mcg PO DAILY 10/15/24 10/15/24 History mcg (4,000 unit) tablet empagliflozin 10 mg tablet 10 mg PO DAILY 10/15/24 10/15/24 History ferrous gluconate 324 mg (38 mg 324 mg PO DAILY 10/15/24 10/15/24 History iron) tablet insulin glargine 100 unit/mL 25 unit SQ DAILY 10/15/24 10/15/24 History subcutaneous solution (Lantus U-100 Insulin) metolazone 5 mg tablet 5 mg PO DAILY 10/15/24 10/15/24 History triamterene 37.5 1 tab PO DAILY 10/15/24 10/15/24 History mg-hydrochlorothiazide 25 mg tablet valsartan 160 mg tablet 160 mg PO DAILY 10/15/24 10/15/24 History New Prescriptions to Start Prescriptions: apixaban [Eliquis] Bry Ernst apixaban [Eliquis] Bry Ernst Allergies Allergy/AdvReac Type Severity Reaction Status Date / Time No Known Allergies Allergy Unverified 10/15/24 07:22 Discharge Plan Disposition Patient Disposition: Home, Self-Care Follow up Plan [facility] with[facility]Other] - Enter time for follow up (CALL TO MAKE YOUR HOSPITAL FOLLOW UP APPOINTMENT WITH THEM. THANK YOU (:) Drake Cleveland MD [Staff Physician] - 10/22/24 10:30 am Nadia Flynn DPM [Staff Physician] - 12/14/24 9:30 am Prescriptions/Medication Reconciliation: New Eliquis 5 mg tablet 10 mg PO BID 6 Days Qty: 24 0RF Eliquis 5 mg tablet 5 mg PO BID Qty: 30 1RF Rx Instructions: Take 10 mg twice a day for the next 6 days, then decrease to 5 mg twice a day. Continued metoprolol succinate 100 mg tablet extended release 24 hr 100 mg PO DAILY Patient Comments: TAKE 1 TABLET BY MOUTH EVERY DAY rosuvastatin 40 mg tablet 40 mg PO HS potassium chloride 20 mEq tablet,ER particles/crystals 20 meq PO TID furosemide 20 mg tablet 20 mg PO DAILY Patient Comments: TAKE 1 TABLET BY MOUTH EVERY DAY Humulin 70/30 U-100 Insulin 100 unit/mL (70-30) suspension 45 unit SQ AM Patient Comments: ADMINISTER 45 UNITS UNDER THE SKIN EVERY MORNING allopurinol 300 mg tablet 300 mg PO DAILY Patient Comments: TAKE 1 TABLET BY MOUTH DAILY insulin glargine [Lantus U-100 Insulin] 100 unit/mL Solution 25 unit SQ DAILY metolazone 5 mg Tablet 5 mg PO DAILY amlodipine 5 mg Tablet 5 mg PO DAILY ascorbic acid (vitamin C) 500 mg Tablet 500 mg PO DAILY triamterene-hydrochlorothiazid 37.5-25 mg Tablet 1 tab PO DAILY valsartan 160 mg Tablet 160 mg PO DAILY ferrous gluconate 324 mg (38 mg iron) Tablet 324 mg PO DAILY empagliflozin 10 mg Tablet 10 mg PO DAILY cholecalciferol (vitamin D3) 100 mcg (4,000 unit) Tablet 100 mcg PO DAILY Problem Reconciliation Problems Reviewed?: Yes Patient Discharge Instructions Patient Instructions: DI for Pulmonary Embolism, DI for Hypoglycemia Print Language: Nigerien Providers Primary Care Provider: Provider,Referral Admit Provider: Bry Ernst Attending Provider: Bry Ernst
--- NOTE | 2024-10-15 13:31 | HMH.PTEV ---
Physical Therapy Evaluation Rehab PT IP Evaluation Start: 10/15/24 09:20 Freq: ONCE Status: Active Protocol: Document 10/15/24 13:21 [id number] (Rec: 10/15/24 13:31 PHORNE [id number]) Subjective/History History History 64-year-old male history of type 1 diabetes and CAD, hypertension, hyperlipidemia presents to [facility] after being found down at home and largely unresponsive. Pt reports he lives in a single story home by himself. He states he only has a few steps into the home but denies difficulty navigating them. Pt was previously independent w/ all ADLs and ambulation before admission. Pt denies using an assistive device. Pt denies a history of falls. Subjective Subjective Pt presents reclined in bed this afternoon. Pt is alert and oriented x3. He states I have been able to get up and go to the bathroom on my own . Pt denies any dizziness or unsteadiness during bed mobility, transfers, and ambulation. Pt consents to PT services. New diagnosis of cancer in past 12 No months? Rehab PT IP Eval Objective Appearance Patient Behavior Appropriate,Cooperative Patient Orientation Person,Place,Birthday Difficulty following instructions none Speech Pattern Clear,Appropriate,Coherent Ambulation Patient Able to Ambulate Yes Ambulation Observation IP General Gait Pattern Observation No Deviations/Normal Ambulation Distance (feet) 20 Ambulation Assistive Device None Ambulation Ability Independent Balance Ability to Arise Able, uses arms to help Sitting Balance Steady, safe Standing Balance Steady, wide stance Dynamic Sitting Balance Ability Normal Dynamic Standing Balance Ability Normal Transfers Bed Transfer Ability Independent Sit to Stand Bed Transfer Ability Independent Rehab PT IP prob,goals,plan Problems Date of Evaluation: 10/15/24 Discharge Plan PT Discharge Plan Currently, pt is most appropriate to return home once medically stable for d/c. Pt demonstrates independence w/ bed mobility, transfers, and gait. Additionally, pt demonstrates good static and dynamic standing/sitting balance. Eval Complexity Eval Charge Codes 41978 - High Complexity PHYSICIAN CERTIFICATION: I certify the specified therapy services for Josh Alonzo are required, authorized, and reviewed every 30 days.
--- NOTE | 2024-10-15 14:07 | SW/DCPLANNER ---
Spoke with patient about homehealth and PT. Patient refuses homehealth and PT. [place]
[2024-10-16 05:11] LABS: HCV Ab Non Reactive (Non Reactive)
--- NOTE | 2024-10-19 13:11 | SW/DCPLANNER ---
Called patient x2 and no answer. Left messages with call back number on each call. [place]
== END 2024-10-15 15:48 | disposition home or self-care (01) ==
LOC: ER 20:30 → 2ND 21:13
PROVIDERS: Nurse Practitioner Family; Admitting Provider Student in an Organized Health Care Education/Training Program; Emergency Provider Emergency Medicine; Visit Provider Student in an Organized Health Care Education/Training Program
DX: I26.99 Other pulmonary embolism without acute cor pulmonale (principal); R55 Syncope and collapse; I25.10 Atherosclerotic heart disease of native coronary artery without angina pectoris; E11.649 Type 2 diabetes mellitus with hypoglycemia without coma; F10.90 Alcohol use, unspecified, uncomplicated; Z79.4 Long term (current) use of insulin; I10 Essential (primary) hypertension; B35.1 Tinea unguium; I65.02 Occlusion and stenosis of left vertebral artery; E11.621 Type 2 diabetes mellitus with foot ulcer; Z12.5 Encounter for screening for malignant neoplasm of prostate; Z60.2 Problems related to living alone; Y90.0 Blood alcohol level of less than 20 mg/100 ml
CPT/HCPCS: 70450; 70496; 70498; 71275; 72125; 74174; 80053; 80307; 80320; 80329; 81001; 82009; 82550; 82803; 82962; 83036; 83605; 83690; 83735; 83880; 84436; 84443; 84484; 85007; 85025; 85027; 85610; 85730; 86803; 86850; 87040; 87086; 87389; 87633; 87636; 93005; 93306; 93325; 93970; 97163; 99291; G0103; G0378; G0480; J0295; J1644; J1650; J3370; J3475; J7120; Q9957; Q9967

== ENCOUNTER 2024-12-12 19:25 | Emergency (ER) | payer OTHER, SELFPAY ==
[2024-12-12] VITALS (12 sets, daily range): BP systolic 150–181; BP diastolic 71–89; PULSE 86–103; RESP 16–27; TEMP 36.6–36.8; O2SAT 96–100; BMI 34.9
--- NOTE | 2024-12-12 19:20 | ECG_ITS ---
APPROVED REPORT Exam: Resting ECG HR:84 bpm ECG Measurements Heart Rate 84 AXES TN 175 P 69 QRSd 93 QRS 29 QT 406 T 31 QTc 447 Conclusion SINUS RHYTHM MINIMAL ST DEPRESSION [0.025+ mV ST DEPRESSION] BORDERLINE ECG INTERPRETATION BASED ON A DEFAULT AGE OF 40 YEARS Electronically signed by : ROBERT RAYGOZA, 12/12/2024 23:38:29
--- NOTE | 2024-12-12 19:43 | HMH.EDGENADL ---
Discharge Plan Disposition Patient Disposition: Home, Self-Care Prescriptions Prescriptions: No Action metoprolol succinate 100 mg tablet extended release 24 hr 100 mg PO DAILY Patient Comments: TAKE 1 TABLET BY MOUTH EVERY DAY rosuvastatin 40 mg tablet 40 mg PO HS potassium chloride 20 mEq tablet,ER particles/crystals 20 meq PO TID furosemide 20 mg tablet 20 mg PO DAILY Patient Comments: TAKE 1 TABLET BY MOUTH EVERY DAY Humulin 70/30 U-100 Insulin 100 unit/mL (70-30) suspension 45 unit SQ AM Patient Comments: ADMINISTER 45 UNITS UNDER THE SKIN EVERY MORNING allopurinol 300 mg tablet 300 mg PO DAILY Patient Comments: TAKE 1 TABLET BY MOUTH DAILY insulin glargine [Lantus U-100 Insulin] 100 unit/mL Solution 25 unit SQ DAILY metolazone 5 mg Tablet 5 mg PO DAILY amlodipine 5 mg Tablet 5 mg PO DAILY ascorbic acid (vitamin C) 500 mg Tablet 500 mg PO DAILY triamterene-hydrochlorothiazid 37.5-25 mg Tablet 1 tab PO DAILY valsartan 160 mg Tablet 160 mg PO DAILY ferrous gluconate 324 mg (38 mg iron) Tablet 324 mg PO DAILY empagliflozin 10 mg Tablet 10 mg PO DAILY cholecalciferol (vitamin D3) 100 mcg (4,000 unit) Tablet 100 mcg PO DAILY Eliquis 5 mg tablet 10 mg PO BID 6 Days Qty: 24 0RF Eliquis 5 mg tablet 5 mg PO BID Qty: 30 1RF Rx Instructions: Take 10 mg twice a day for the next 6 days, then decrease to 5 mg twice a day. Referrals Follow up/Referrals: Provider,Referral, MD [Primary Care Provider] - See instructions Activity Restrictions/Add. Instructions Additional Instructions/Restrictions: As discussed please do not take your afternoon dose of your insulin and follow-up with your family doctor on Saturday or Saturday so they can modify your dosage. Please continue to take your insulin in the morning with food. If your sugar ever gets above 500 before then please come back for continued evaluation. Clinical Impressions Clinical Impression: Hypoglycemia Instructions Patient Instructions: DI for Hyperglycemia -- Adult Print Language Print Language: Japanese Discharge ED Provider: Charles Hess General Adult HPI General Chief complaint: Hyper/Hypoglycemia Stated complaint: loc Time Seen by Provider: 12/12/24 19:27 History of Present Illness HPI narrative: Patient is a 64-year-old male past medical history of insulin-dependent diabetes, hypertension who presents emergency department somnolent not arousable. Limited EMS report is obtained at bedside. Patient was unable to be contacted a when he was found snoring slumped over in his chair at home. And route fingerstick was 40, IV access was attempted be obtained and was unsuccessful. He presents here on nonrebreather unresponsive with his environment however breathing spontaneously. No other history is able to be obtained at this time. Related Data Home Medications ?Medication ?Instructions ?Recorded ?Confirmed metoprolol succinate 100 mg 100 mg PO DAILY 01/26/21 10/15/24 tablet,extended release 24 hr potassium chloride 20 mEq 20 meq PO TID 01/26/21 10/15/24 tablet,extended release(part/cryst) rosuvastatin 40 mg tablet 40 mg PO HS 01/26/21 10/15/24 furosemide 20 mg tablet 20 mg PO DAILY 12/21/22 10/15/24 allopurinol 300 mg tablet 300 mg PO DAILY 10/14/24 10/15/24 insulin human U-100 NPH-regulr 45 unit SQ AM 10/14/24 10/15/24 70-30 mix 100 unit/mL subcutaneous susp (Humulin 70/30 U-100 Insulin) amlodipine 5 mg tablet 5 mg PO DAILY 10/15/24 10/15/24 ascorbic acid (vitamin C) 500 mg 500 mg PO DAILY 10/15/24 10/15/24 tablet cholecalciferol (vitamin D3) 100 100 mcg PO DAILY 10/15/24 10/15/24 mcg (4,000 unit) tablet empagliflozin 10 mg tablet 10 mg PO DAILY 10/15/24 10/15/24 ferrous gluconate 324 mg (38 mg 324 mg PO DAILY 10/15/24 10/15/24 iron) tablet insulin glargine 100 unit/mL 25 unit SQ DAILY 10/15/24 10/15/24 subcutaneous solution (Lantus U-100 Insulin) metolazone 5 mg tablet 5 mg PO DAILY 10/15/24 10/15/24 triamterene 37.5 1 tab PO DAILY 10/15/24 10/15/24 mg-hydrochlorothiazide 25 mg tablet valsartan 160 mg tablet 160 mg PO DAILY 10/15/24 10/15/24 Previous Rx's ?Medication ?Instructions ?Recorded apixaban 5 mg tablet (Eliquis) 5 mg PO BID #30 tabs 10/15/24 apixaban 5 mg tablet (Eliquis) 10 mg (2 x 5 mg) PO BID 6 days #24 10/15/24 tabs Allergies Allergy/AdvReac Type Severity Reaction Status Date / Time No Known Allergies Allergy Unverified 10/15/24 07:22 [facility] Disclaimer: The information contained in this section may have been updated after the patient was seen, as this information can be updated by other users. Medical History Coronary artery disease Daytime somnolence Diabetes type I Dyspnea HLD (hyperlipidemia) HTN (hypertension) Restless sleeper Social History Smoking Status: Unknown if ever smoked alcohol intake: current alcohol intake frequency: holidays/special occasions only substance use type: denies use current occupational status: employed and disabled Travel in the last 8 weeks: Inside the [place] Other Medical History Have you received the Flu Vaccine for this season: No Have you received the Pneumonia Vaccine: No ROS Obtained: Yes unobtainable due to mental status Physical Exam General General appearance: obtunded Comment: GCS 4 eyes open to pain Eye Eye exam: Present PERRL (Miosis) Respiratory Respiratory exam: Absent respiratory distress Cardiovascular Cardiovascular exam: Present regular rate and normal rhythm Abdominal Exam Abdominal exam: Present soft; Absent tenderness Neurological Exam Neurological exam: Present other (Minimally responsive eyes open to pain only) Skin Skin exam: Present diaphoresis Medical Decision Making Medical Records Screening: Per USPSTF and CDC recommendations, given the prevalence of disease in our region, it is our hospital?s policy to screen for HIV and viral Hepatitis for all patients aged 18 and over and those with ongoing risk factors. Jamel Inquiry Pt receiving controlled substance: No Vital Signs: 12/12/24 19:25 12/12/24 19:50 12/12/24 20:40 Temperature 98.2 F 97.9 F Temperature Source Oral Oral Pulse Rate 86 94 H Pulse Rate [Left] 86 Respiratory Rate 24 16 Blood Pressure 181/85 H 171/82 H Blood Pressure [Right Arm] 150/71 H Blood Pressure Mean [Right Arm] 97 02 Sat by Pulse Oximetry 100 98 Oxygen Delivery Method Room Air Room Air 12/12/24 20:51 12/12/24 21:00 12/12/24 21:15 Temperature Temperature Source Pulse Rate 96 H 91 H 97 H Pulse Rate [Left] Respiratory Rate 21 20 20 Blood Pressure Blood Pressure [Right Arm] Blood Pressure Mean [Right Arm] 02 Sat by Pulse Oximetry 96 96 98 Oxygen Delivery Method 12/12/24 21:30 12/12/24 21:45 12/12/24 22:00 Temperature Temperature Source Pulse Rate 97 H 97 H 103 H Pulse Rate [Left] Respiratory Rate 27 H 26 H 20 Blood Pressure Blood Pressure [Right Arm] Blood Pressure Mean [Right Arm] 02 Sat by Pulse Oximetry 96 97 98 Oxygen Delivery Method 12/12/24 22:46 Temperature Temperature Source Pulse Rate 100 H Pulse Rate [Left] Respiratory Rate Blood Pressure 156/88 H Blood Pressure [Right Arm] Blood Pressure Mean [Right Arm] 02 Sat by Pulse Oximetry 97 Oxygen Delivery Method Lab Data Lab Results 12/12/24 19:25: Specimen Source Right radial, O2 % Nrb, ABG pH 7.35, ABG pCO2 42.7, ABG pO2 82.2, ABG HCO3 23.0, ABG Total CO2 24.3, ABG O2 Saturation 96, ABG Base Excess -2.6 L, Maciel Test Unable, ABG Lactate 1.9 12/12/24 19:30: WBC 15.3 H, RBC 4.05 L, Hgb 13.0 L, Hct 38.9 L, MCV 96.0 H, MCH 32.1 H, MCHC 33.4, RDW 12.4, Plt Count 361, MPV 8.9, Neut % (Auto) 93.5 H, Lymph % (Auto) 3.3 L, [place] % (Auto) 2.6, Eos % (Auto) 0.0 L, Baso % (Auto) 0.2, Neut # (Auto) 14.3 H, Lymph # (Auto) 0.5 L, [place] # (Auto) 0.4, Eos # (Auto) 0.0, Baso # (Auto) 0.0, Total Counted 100, Neutrophils % (Manual) 93 H, Lymphocytes % (Manual) 4 L, Monocytes % (Manual) 3, Platelet Estimate Normal, RBC Morphology Normal, Sodium 134 L, Potassium 4.9, Chloride 100, Carbon Dioxide 27, Anion Gap 11.9, BUN 28 H, Creatinine 1.00, Estimated GFR 75, Est GFR ( Amer) 91, Glucose 230 H, Calcium 8.8, Magnesium 1.9, Total Bilirubin 0.3, AST 91 H, ALT 60, Alkaline Phosphatase 103, Total Protein 6.4, Albumin 3.8, Globulin 2.6, Albumin/Globulin Ratio 1.5, TSH 0.62, Thyroxine (T4) 6.2 12/12/24 21:05: Urine Color Yellow, Urine Appearance Clear, Urine pH 5.5, Ur Specific [place] 1.025, Urine Protein Negative, Urine Glucose (UA) 1+, Urine Ketones Negative, Urine Blood Trace-i, Urine Nitrate Negative, Urine Bilirubin Negative, Urine Urobilinogen 0.2, Ur Leukocyte Esterase Negative, Urine RBC 3-5, Urine WBC None, Ur Squamous Epith Cells Occasional, Urine Bacteria Trace 12/12/24 19:30 12/12/24 19:30 Orders (Tests/Meds): ORDERS Category Date Time Status CBC w/Auto Diff [Complete Blood Count Auto Diff] Stat Lab 12/12/24 19:30 Completed CMP [Comprehensive Metabolic Panel] Stat Lab 12/12/24 19:30 Completed MG [Magnesium] Stat Lab 12/12/24 19:30 Completed T4 (Thyroxine) Stat Lab 12/12/24 19:30 Completed TSH [Thyroid Stimulating Hormone] Stat Lab 12/12/24 19:30 Completed Urinalysis-Acute [Urinalysis and Microscopic] Stat Lab 12/12/24 21:05 Completed Arterial Blood Gas Routine RT 12/12/24 19:25 Completed Lactate Arterial Routine RT 12/12/24 19:25 Completed ECG Data Tracing #1: Independently turbid by me rate is 84, rhythm is regular, axis is borderline leftward deviated, no ST elevation in anatomical contiguous leads, chatter in the lateral leads, QTc 447 Medical Decision Narrative: In summary patient is 64-year-old male with past medical history described above who presents emergency department for evaluation of decreased responsiveness. Patient is not interacting with his environment GCS 4 upon arrival fingerstick undetectably low. Intraosseous access was attempted however the catheters could not be located. Ultrasound guided IV placed by me x 2. D50 administered. Patient had resurgence of consciousness, he is not complaining of any pain, he does not remember any events from today. He has no acute complaints. He does note that he takes his insulin for his diabetes but is unsure as he has taken it today. He has no acute complaints. Denies chest pain, abdominal pain, shortness of breath, headache. Initial workup reviewed by me, hematologic labs are nonactionable, nonspecific leukocytosis, compensated acid-base status, electrolytes nonactionable, urinalysis inter by me and not consistent with infection. 15-minute glucose checks are uptrending in the 100s. The patient was placed in observation status at 9:30 PM. Medical necessity for observational status is serial glucose checks in the setting of hypoglycemia. The patient was provided serial reevaluations and cardiac monitoring while awaiting results. Upon repeat questioning patient states that he recently got prescribed a second dose of insulin in the afternoon for which she had not taken it over the last 2 weeks but he thinks he took it today. This lines up with patient's symptomatology having excessive insulin use compared to his baseline. Patient underwent multiple hours of serial glucose checks all of which stayed stable in the mid 100s. Given this I feel the patient is appropriate for outpatient management at this time and was instructed to not take his afternoon insulin rather just take his morning insulin and monitor his glucose at home and follow-up with his family doctor early next week for medication regimen modification. Total time in observation 1 hour and 30 minutes. Procedure: Procedure performed ultrasound-guided IV. Procedure performed by Charles Hess. Using real-time ultrasound a long 18-gauge IV was placed in the left brachial vein. Vessel cannula was patent. Images were not saved to permanent archive. Number of attempts was 1. Patient tolerated procedure well. There were no immediate complications. Procedure: Procedure performed was ultrasound-guided IV. Procedure performed by Charles Hess. Using real-time ultrasound guidance a long 18-gauge IV was anchored in the right brachial vein. Vessel cannula was patent. Images were not saved to permanent archive. Number of attempts was 1. Patient tolerated procedure well. There were no immediate complications Critical Care Critical Care Time Critical Care Time: Yes Attestation: On 12/12/24, the high probability of a clinically significant, sudden or life threatening deterioration of the following system(s) required my full and direct attention, intervention and personal management. The time I documented below is in addition to time spent performing reported procedures but includes the following listed in this critical care notation. Total Time Total Critical Care Time: 30
[2024-12-12 19:46] LABS: Basophils % 0.2 % (0.1-2.0); Hematocrit 38.9 % (42.0-52.0); Lymphocytes # 0.5 K/mm3 (0.7-4.5); Lymphocytes % 3.3 % (10-50); Mean Corpuscular HGB Conc 33.4 g/dL (31.8-35.4); Mean Corpuscular Hemoglobin 32.1 pg (27.0-31.2); Mean Platelet Volume 8.9 fl (7.4-10.4); Monocytes # 0.4 K/mm3 (0.1-1.0); Monocytes % 2.6 % (1.7-9.3); Neutrophils # 14.3 K/mm3 (1.8-7.8); Neutrophils % 93.5 % (37.0-80.0); Platelet Count 361 K/mm3 (142-424); Red Blood Count 4.05 M/mm3 (4.60-6.20); Red Cell Distribution Width 12.4 % (11.5-17.5); White Blood Count 15.3 K/mm3 (4.8-10.8)
[2024-12-12 19:48] LABS: MANUAL DIFFERENTIAL MANUAL DIFFERENTIAL (MANUAL DIFF)
[2024-12-12 19:52] LABS: Alanine Aminotransferase 60 U/L (12-78); Albumin Level 3.8 g/dl (3.5-5.0); Albumin/Globulin Ratio 1.5 (1.1-1.8); Alkaline Phosphatase 103 U/L (38-126); Anion Gap 11.9 mEq/L (5-15); Aspartate Amino Transferase 91 U/L (17-59); Bilirubin,Total 0.3 mg/dl (0.2-1.3); Blood Urea Nitrogen 28 mg/dl (9-20); Calcium 8.8 mg/dl (8.4-10.2); Carbon Dioxide 27 mmol/L (22.0-30.0); Chloride 100 mmol/L (98-107); Estimated Glomerular Filt Rate 75 ml/min (>60); GFR (African American) 91 ML/MIN (>60); Globulin 2.6 g/dL (1.3-3.2); Glucose 230 mg/dl (74-100); Magnesium 1.9 mg/dl (1.6-2.3); Potassium 4.9 mmoL/L (3.5-5.1); Sodium 134 mmol/L (136-145); Total Protein,Serum 6.4 g/dl (6.3-8.2)
[2024-12-12 19:53] LABS: ABG PCO2 42.7 mmhg (35.0-45.0); ABG PH 7.35 mmol/L (7.35-7.45); ABG PO2 82.2 mmhg (80-100)
[2024-12-12 19:54] LABS: ABG Base Excess -2.6 mmol/L (-2.4-2.3); ABG Oxygen Saturation 96 % (90-100); ABG TCO2 24.3 mmhg (23-27); Allen's Test UNABLE; Lactate Arterial 1.9 mmol/L (0.4-2.0); Oxygen NRB %; Source Right Radial
[2024-12-12 20:09] LABS: T4 (Thyroxine) 6.2 ug/dl (5.53-11.0)
[2024-12-12 20:12] LABS: Lymphocytes % 4 % (10-50); Monocytes % 3 % (2-9); Neutrophils % 93 % (42-76); Platelet Estimate Normal; RBC Morphology Normal; Total Cells Counted 100
[2024-12-12 20:23] LABS: Thyroid Stimulating Hormone 0.62 uIU/mL (0.465-4.68)
[2024-12-12 21:10] LABS: Appearance,Urine CLEAR (Clear); Bilirubin,Urine Negative (Negative); Blood, Urine TRACE-I (Negative); Color,Urine YELLOW (Yellow); Glucose,Urine (UA) 1+ (Negative); Ketones,Urine Negative (Negative); Leukocyte Esterase,Urine Negative (Negative); Microscopic, Urine URINE MICROSCOPIC (MICROSCOPIC); Nitrate,Urine Negative (Negative); PH,Urine 5.5 (5.0-8.5); Protein,Urine Negative (Negative); Specific Gravity, Urine 1.025 (1.005-1.030); Urobilinogen,Urine 0.2 EU/dl (0.2)
[2024-12-12 21:31] LABS: Bacteria,Urine Trace /lpf; Squamous Epithelial Cell,Urine Occasional #/hpf (0-5)
== END 2024-12-12 23:28 | disposition home or self-care (01) ==
PROVIDERS: Emergency Provider Emergency Medicine
DX: E10.649 Type 1 diabetes mellitus with hypoglycemia without coma (principal); R55 Syncope and collapse; R41.82 Altered mental status, unspecified; I10 Essential (primary) hypertension
CPT/HCPCS: 80053; 81001; 82803; 83605; 83735; 84436; 84443; 85007; 85025; 85027; 93005; 99291

== ENCOUNTER 2025-01-16 22:40 | Observation (INO) | payer OTHER, SELFPAY ==
[2025-01-16 22:45] VITALS: BP 162/77; PULSE 89; RESP 16; TEMP 35; O2SAT 95; BMI 37.3
[2025-01-16 22:46] VITALS: PULSE 92; RESP 20; O2SAT 96
--- NOTE | 2025-01-16 22:46 | ED_ITS ---
Discharge Plan Disposition Patient Disposition: Admitted Condition: Fair Clinical Impressions Clinical Impression: Sepsis, Hypoglycemia Discharge ED Provider: Rashard Garcia General Adult HPI <Brad Chilel MD - Last Filed: 01/16/25 23:17> General Chief complaint: Altered Mental Status Stated complaint: weakness Time Seen by Provider: 01/16/25 22:44 Mode of Arrival: EMS Source of Information: Patient and EMS Limitations: No Limitations History of Present Illness HPI narrative: This is a 64-year-old male with a past medical history of hypertension, hyperlipidemia, type 1 diabetes who presents with altered mental status and hypoglycemia. States that family called EMS for evaluation of altered mental status (found him and he was not himself ) and patient's glucose was 63 at the time of arrival. Was otherwise hemodynamically stable and in no acute distress. States that he has not eaten or drank anything today. Uses insulin 45 units of Lantus in the morning and takes no other medications for diabetes but states that he has not given himself his insulin today. Related Data Home Medications ?Medication ?Instructions ?Recorded ?Confirmed metoprolol succinate 100 mg 100 mg PO DAILY 01/26/21 01/16/25 tablet,extended release 24 hr potassium chloride 20 mEq 20 meq PO TID 01/26/21 01/16/25 tablet,extended release(part/cryst) rosuvastatin 40 mg tablet 40 mg PO HS 01/26/21 01/16/25 furosemide 20 mg tablet 20 mg PO DAILY 12/21/22 01/16/25 allopurinol 300 mg tablet 300 mg PO DAILY 10/14/24 01/16/25 insulin human U-100 NPH-regulr 45 unit SQ AM 10/14/24 01/16/25 70-30 mix 100 unit/mL subcutaneous susp (Humulin 70/30 U-100 Insulin) amlodipine 5 mg tablet 5 mg PO DAILY 10/15/24 01/16/25 ascorbic acid (vitamin C) 500 mg 500 mg PO DAILY 10/15/24 01/16/25 tablet cholecalciferol (vitamin D3) 100 100 mcg PO DAILY 10/15/24 01/16/25 mcg (4,000 unit) tablet empagliflozin 10 mg tablet 10 mg PO DAILY 10/15/24 01/16/25 ferrous gluconate 324 mg (38 mg 324 mg PO DAILY 10/15/24 01/16/25 iron) tablet insulin glargine 100 unit/mL 25 unit SQ DAILY 10/15/24 01/16/25 subcutaneous solution (Lantus U-100 Insulin) metolazone 5 mg tablet 5 mg PO DAILY 10/15/24 01/16/25 triamterene 37.5 1 tab PO DAILY 10/15/24 01/16/25 mg-hydrochlorothiazide 25 mg tablet valsartan 160 mg tablet 160 mg PO DAILY 10/15/24 01/16/25 Previous Rx's ?Medication ?Instructions ?Recorded apixaban 5 mg tablet (Eliquis) 5 mg PO BID #30 tabs 10/15/24 apixaban 5 mg tablet (Eliquis) 10 mg (2 x 5 mg) PO BID 6 days #24 10/15/24 tabs Allergies Allergy/AdvReac Type Severity Reaction Status Date / Time No Known Allergies Allergy Unverified 10/15/24 07:22 [facility] <Brad Chilel MD - Last Filed: 01/16/25 23:17> [facility] Disclaimer: The information contained in this section may have been updated after the patient was seen, as this information can be updated by other users. Medical History Coronary artery disease Daytime somnolence Diabetes type I Dyspnea HLD (hyperlipidemia) HTN (hypertension) Restless sleeper Social History Smoking Status: Never smoker alcohol intake: current alcohol intake frequency: holidays/special occasions only substance use type: denies use current occupational status: employed and disabled Travel in the last 8 weeks: Inside the [place] Have you lived/traveled outside US in past 30 days?: No Contact w/someone who lives/traveled outside US past 30 days?: No Exposure to someone with infectious disease in past 14 days?: No Do you have a fever (greater than 100.4 F or 38 C)?: No Have you tested positive for COVID-19: No Exposed to someone with COVID-19 in past 14 days?: No Do you have a sore throat?: No Do you have a cough?: No Do you have any weakness?: Yes Do you have any diarrhea?: No Are you experiencing any unusual bleeding?: No Do you have any muscle aches/pain?: No Do you have any abdominal pain?: No Are you experiencing loss of taste or smell?: No Other Medical History Have you received the Flu Vaccine for this season: No Have you received the Pneumonia Vaccine: No <Brad Chilel MD - Last Filed: 01/16/25 23:17> ROS Obtained: Yes All systems reviewed & no additional complaints except as documented Physical Exam <Brad Chilel MD - Last Filed: 01/16/25 23:17> General General appearance: alert, in no apparent distress and obese Comment: Ill appearing Eye Eye exam: Present normal appearance, PERRL and EOMI Respiratory Respiratory exam: Present normal lung sounds bilaterally; Absent respiratory distress Cardiovascular Cardiovascular exam: Present regular rate and normal rhythm Abdominal Exam Abdominal exam: Present soft and distention; Absent tenderness, guarding or rebound Extremities Exam Extremities exam: Present normal inspection Neurological Exam Neurological exam: Present alert and oriented X3 Skin Skin exam: Present warm and dry Medical Decision Making <Brad Chilel MD - Last Filed: 01/16/25 23:17> Medical Records Medical records reviewed: Yes I reviewed the patient's medical records. Screening: Per USPSTF and CDC recommendations, given the prevalence of disease in our region, it is our hospital?s policy to screen for HIV and viral Hepatitis for all patients aged 18 and over and those with ongoing risk factors. MR Comment: Reviewed emergency department visit note from 12/12/2024 notable for presentation with hypoglycemia Jamel Inquiry Pt receiving controlled substance: No Vital Signs: 01/16/25 22:45 01/16/25 22:46 01/16/25 23:19 Temperature 95 F L Temperature Source Rectal Pulse Rate 92 H 85 Pulse Rate [Right Radial] 89 Respiratory Rate 16 20 29 H Blood Pressure 151/83 H Blood Pressure [Right Arm] 162/77 H Blood Pressure Mean 108 Blood Pressure Mean [Right Arm] 105 Blood Pressure Source Blood Pressure Source [Right Arm] Automatic Cuff Blood Pressure Position Blood Pressure Position [Right Arm] Supine 02 Sat by Pulse Oximetry 95 96 96 Oxygen Delivery Method Room Air Room Air 01/16/25 23:28 01/16/25 23:31 01/17/25 00:31 Temperature 95.8 F L Temperature Source Pulse Rate 86 86 82 Pulse Rate [Right Radial] Respiratory Rate 20 20 20 Blood Pressure 122/73 159/64 H 127/65 Blood Pressure [Right Arm] Blood Pressure Mean Blood Pressure Mean [Right Arm] Blood Pressure Source Blood Pressure Source [Right Arm] Blood Pressure Position Blood Pressure Position [Right Arm] 02 Sat by Pulse Oximetry 96 96 96 Oxygen Delivery Method 01/17/25 01:02 Temperature 95.8 F L Temperature Source Rectal Pulse Rate 82 Pulse Rate [Right Radial] Respiratory Rate 20 Blood Pressure 127/65 Blood Pressure [Right Arm] Blood Pressure Mean Blood Pressure Mean [Right Arm] Blood Pressure Source Automatic Cuff Blood Pressure Source [Right Arm] Blood Pressure Position Supine Blood Pressure Position [Right Arm] 02 Sat by Pulse Oximetry Oxygen Delivery Method Room Air Lab Data Lab Results 01/16/25 22:49: WBC 18.3 H, RBC 4.14 L, Hgb 13.4 L, Hct 40.0 L, MCV 96.6 H, MCH 32.4 H, MCHC 33.5, RDW 13.5, Plt Count 346, MPV 9.2, Neut % (Auto) 93.4 H, Lymph % (Auto) 3.2 L, [place] % (Auto) 2.6, Eos % (Auto) 0.2, Baso % (Auto) 0.2, Neut # (Auto) 17.1 H, Lymph # (Auto) 0.6 L, [place] # (Auto) 0.5, Eos # (Auto) 0.0, Baso # (Auto) 0.0, Total Counted 100, Neutrophils % (Manual) 92 H, Lymphocytes % (Manual) 5 L, Monocytes % (Manual) 3, Nucleated RBCs 1, Platelet Estimate Normal, Hypochromasia 1+, Stomatocytes 1+, Sodium 138, Potassium 4.7, Chloride 101, Carbon Dioxide 26, Anion Gap 15.7 H, BUN 32 H, Creatinine 1.30 H, Estimated Creat Clear 103, Estimated GFR 56 L, Est GFR ( Amer) 67, Glucose 124 H, Calcium 9.4, Total Bilirubin 0.4, AST 118 H, ALT 72, Alkaline Phosphatase 139 H, NT-Pro-B Natriuret Pep 212 H, Total Protein 7.0, Albumin 4.3, Globulin 2.7, Albumin/Globulin Ratio 1.6, TSH 1.02, Plasma/Serum Alcohol < 10 01/16/25 23:00: SARS-CoV-2 (PCR) Not detected, Influenza A Untype (PCR) Not detected, Influenza Type B (PCR) Not detected 01/16/25 23:26: Lactate 4.4 H 01/17/25 00:02: Urine Color Yellow, Urine Appearance Clear, Urine pH 6.5, Ur Specific [place] 1.015, Urine Protein Negative, Urine Glucose (UA) Negative, Urine Ketones Negative, Urine Blood Negative, Urine Nitrate Negative, Urine Bilirubin Negative, Urine Urobilinogen 0.2, Ur Leukocyte Esterase Negative, Urine RBC None, Urine WBC Occasional, Ur Squamous Epith Cells Occasional, Urine Bacteria Trace 01/16/25 22:49 01/16/25 22:49 Orders (Tests/Meds): ED MEDICATIONS Generic Name Dose Route Start Last Admin Trade Name Freq PRN Reason Stop Dose Admin Acetaminophen 650 mg 01/17/25 00:49 Acetaminophen 325mg Tab PO 02/16/25 00:48 Q4HP PRN Fever or Mild Pain (1-3) Enoxaparin Sodium 40 mg 01/17/25 09:00 Enoxaparin 40mg/0.4ml Syringe SUBCUT 02/16/25 08:59 DAILY [facility] Vancomycin HCl 2,500 mg/ 500 mls @ 250 mls/hr 01/17/25 01:00 Sodium Chloride IV 01/17/25 03:59 ONCE ONE Piperacillin Sod/Tazobactam 50 mls @ 100 mls/hr 01/17/25 06:00 Sod 3.375 gm/ Sodium Chloride IV 01/27/25 05:59 Q8H HUANG Miscellaneous 1 each 01/17/25 00:45 01/17/25 01:02 Vancomycin Consult Request NOTAPPLIC 02/16/25 00:44 1 each CONSULT PHARMACY HUANG Administration Ondansetron HCl 4 mg 01/17/25 00:49 Ondansetron 4mg/2ml Vial IV 02/16/25 00:48 Q8HP PRN Nausea Pantoprazole Sodium 40 mg 01/17/25 21:00 Pantoprazole 40mg Tablet PO 02/16/25 20:59 HS HUANG Discontinued Medications Generic Name Dose Route Start Last Admin Trade Name Freq PRN Reason Stop Dose Admin Lactated Ringer's 1,000 mls @ 999 mls/hr 01/16/25 22:51 01/16/25 23:14 Lactated Ringer's 1000 Ml Bag IV 01/16/25 23:51 999 mls/hr .Q1H1M ONE Administration Piperacillin Sod/Tazobactam 100 mls @ 200 mls/hr 01/17/25 00:39 01/17/25 00:42 Sod 4.5 gm/ Sodium Chloride IV 01/17/25 01:08 200 mls/hr ONCE ONE Administration ORDERS Category Date Time Status Chest XR -- portable [XR chest portable] Stat Exams 01/16/25 22:51 Completed BNP [NT Pro Brain Natriuretic Pep.] Routine Lab 01/17/25 00:55 Completed Basic Metabolic Panel AMLAB Lab 01/17/25 06:00 Ordered Basic Metabolic Panel AMLAB Lab 01/18/25 06:00 Ordered Blood alcohol [Ethyl Alcohol] Stat Lab 01/16/25 22:49 Completed C-Peptide Stat Lab 01/16/25 23:26 Received CBC w/Auto Diff [Complete Blood Count Auto Diff] Stat Lab 01/16/25 22:49 Completed CMP [Comprehensive Metabolic Panel] Stat Lab 01/16/25 22:49 Completed CRP [C-Reactive Protein] AMLAB Lab 01/17/25 06:00 Ordered Complete Blood Count Auto Diff AMLAB Lab 01/17/25 06:00 Ordered Complete Blood Count Auto Diff AMLAB Lab 01/18/25 06:00 Ordered Erythrocyte Sedimentation Rate AMLAB Lab 01/17/25 06:00 Ordered Full Resp Panel w/COVID ([facility]) Routine Lab 01/17/25 01:30 Received Lactic Acid Stat Lab 01/16/25 23:26 Completed Magnesium AMLAB Lab 01/17/25 06:00 Ordered Rapid PCR Covid and Flu A/B Stat Lab 01/16/25 23:00 Completed TSH [Thyroid Stimulating Hormone] Stat Lab 01/16/25 22:49 Completed Urinalysis and Microscopic Stat Lab 01/17/25 00:02 Completed Blood Culture Stat Micro 01/16/25 23:26 Received ECG Data Tracing #1: I reviewed this ECG and interpreted as documented below: Normal sinus rhythm at a rate of 92, QTc 410, normal axis, no STEMI Medical Decision Narrative: In summary, this 64-year-old male with a past medical history of hypertension, hyperlipidemia, type 1 diabetes presents to the emergency department today with altered mental status and hypoglycemia. On initial evaluation patient is hypothermic with a rectal temperature of 94 Fahrenheit, normotensive, nontachycardic, GCS of 15, glucose of 83. Differential diagnosis includes but is not limited to hypoglycemia, surreptitious insulin use, dehydration, sepsis, environmental exposure. Based on these concerns, I ordered blood cultures x 2, CBC, CMP, thyroid panel, urinalysis, chest x-ray, alcohol level. ECG personally interpreted as noted above. Patient received Sarahi hugger and 1 L of warmed lactated Ringer's for treatment. Labs personally reviewed demonstrate leukocytosis of 18, chronic anemia w/ Hb 13.4, mild MICHELLE with a creatinine of 1.3 from a baseline of 1, BUN of 32, negative alcohol level. XR personally interpreted demonstrates no significant opacity or consolidation concerning for pneumonia however very poor lung volumes. At the time of shift change, handed care off to Dr. Garcia pending rest of laboratory workup resulting in urinalysis, reevaluation and treatment of possible sepsis. See l for ultimate impression and disposition. <Rashard Garcia MD - Last Filed: 01/17/25 01:58> Vital Signs: 01/16/25 22:45 01/16/25 22:46 01/16/25 23:19 Temperature 95 F L Temperature Source Rectal Pulse Rate 92 H 85 Pulse Rate [Right Radial] 89 Respiratory Rate 16 20 29 H Blood Pressure 151/83 H Blood Pressure [Right Arm] 162/77 H Blood Pressure Mean 108 Blood Pressure Mean [Right Arm] 105 Blood Pressure Source Blood Pressure Source [Right Arm] Automatic Cuff Blood Pressure Position Blood Pressure Position [Right Arm] Supine 02 Sat by Pulse Oximetry 95 96 96 Oxygen Delivery Method Room Air Room Air 01/16/25 23:28 01/16/25 23:31 01/17/25 00:31 Temperature 95.8 F L Temperature Source Pulse Rate 86 86 82 Pulse Rate [Right Radial] Respiratory Rate 20 20 20 Blood Pressure 122/73 159/64 H 127/65 Blood Pressure [Right Arm] Blood Pressure Mean Blood Pressure Mean [Right Arm] Blood Pressure Source Blood Pressure Source [Right Arm] Blood Pressure Position Blood Pressure Position [Right Arm] 02 Sat by Pulse Oximetry 96 96 96 Oxygen Delivery Method 01/17/25 01:02 Temperature 95.8 F L Temperature Source Rectal Pulse Rate 82 Pulse Rate [Right Radial] Respiratory Rate 20 Blood Pressure 127/65 Blood Pressure [Right Arm] Blood Pressure Mean Blood Pressure Mean [Right Arm] Blood Pressure Source Automatic Cuff Blood Pressure Source [Right Arm] Blood Pressure Position Supine Blood Pressure Position [Right Arm] 02 Sat by Pulse Oximetry Oxygen Delivery Method Room Air Lab Data Lab Results 01/16/25 22:49: WBC 18.3 H, RBC 4.14 L, Hgb 13.4 L, Hct 40.0 L, MCV 96.6 H, MCH 32.4 H, MCHC 33.5, RDW 13.5, Plt Count 346, MPV 9.2, Neut % (Auto) 93.4 H, Lymph % (Auto) 3.2 L, [place] % (Auto) 2.6, Eos % (Auto) 0.2, Baso % (Auto) 0.2, Neut # (Auto) 17.1 H, Lymph # (Auto) 0.6 L, [place] # (Auto) 0.5, Eos # (Auto) 0.0, Baso # (Auto) 0.0, Total Counted 100, Neutrophils % (Manual) 92 H, Lymphocytes % (Manual) 5 L, Monocytes % (Manual) 3, Nucleated RBCs 1, Platelet Estimate Normal, Hypochromasia 1+, Stomatocytes 1+, Sodium 138, Potassium 4.7, Chloride 101, Carbon Dioxide 26, Anion Gap 15.7 H, BUN 32 H, Creatinine 1.30 H, Estimated Creat Clear 103, Estimated GFR 56 L, Est GFR ( Amer) 67, Glucose 124 H, Calcium 9.4, Total Bilirubin 0.4, AST 118 H, ALT 72, Alkaline Phosphatase 139 H, NT-Pro-B Natriuret Pep 212 H, Total Protein 7.0, Albumin 4.3, Globulin 2.7, Albumin/Globulin Ratio 1.6, TSH 1.02, Plasma/Serum Alcohol < 10 01/16/25 23:00: SARS-CoV-2 (PCR) Not detected, Influenza A Untype (PCR) Not detected, Influenza Type B (PCR) Not detected 01/16/25 23:26: Lactate 4.4 H 01/17/25 00:02: Urine Color Yellow, Urine Appearance Clear, Urine pH 6.5, Ur Specific [place] 1.015, Urine Protein Negative, Urine Glucose (UA) Negative, Urine Ketones Negative, Urine Blood Negative, Urine Nitrate Negative, Urine Bilirubin Negative, Urine Urobilinogen 0.2, Ur Leukocyte Esterase Negative, Urine RBC None, Urine WBC Occasional, Ur Squamous Epith Cells Occasional, Urine Bacteria Trace Orders (Tests/Meds): ED MEDICATIONS Generic Name Dose Route Start Last Admin Trade Name Rad PRN Reason Stop Dose Admin Acetaminophen 650 mg 01/17/25 00:49 Acetaminophen 325mg Tab PO 02/16/25 00:48 Q4HP PRN Fever or Mild Pain (1-3) Enoxaparin Sodium 40 mg 01/17/25 09:00 Enoxaparin 40mg/0.4ml Syringe SUBCUT 02/16/25 08:59 DAILY HUANG Vancomycin HCl 2,500 mg/ 500 mls @ 250 mls/hr 01/17/25 01:00 Sodium Chloride IV 01/17/25 03:59 ONCE ONE Piperacillin Sod/Tazobactam 50 mls @ 100 mls/hr 01/17/25 06:00 Sod 3.375 gm/ Sodium Chloride IV 01/27/25 05:59 Q8H HUANG Miscellaneous 1 each 01/17/25 00:45 01/17/25 01:02 Vancomycin Consult Request NOTAPPLIC 02/16/25 00:44 1 each CONSULT PHARMACY HUANG Administration Ondansetron HCl 4 mg 01/17/25 00:49 Ondansetron 4mg/2ml Vial IV 02/16/25 00:48 Q8HP PRN Nausea Pantoprazole Sodium 40 mg 01/17/25 21:00 Pantoprazole 40mg Tablet PO 02/16/25 20:59 HS HUANG Discontinued Medications Generic Name Dose Route Start Last Admin Trade Name Rad PRN Reason Stop Dose Admin Lactated Ringer's 1,000 mls @ 999 mls/hr 01/16/25 22:51 01/16/25 23:14 Lactated Ringer's 1000 Ml Bag IV 01/16/25 23:51 999 mls/hr .Q1H1M ONE Administration Piperacillin Sod/Tazobactam 100 mls @ 200 mls/hr 01/17/25 00:39 01/17/25 00:42 Sod 4.5 gm/ Sodium Chloride IV 01/17/25 01:08 200 mls/hr ONCE ONE Administration ORDERS Category Date Time Status Chest XR -- portable [XR chest portable] Stat Exams 01/16/25 22:51 Completed BNP [NT Pro Brain Natriuretic Pep.] Routine Lab 01/17/25 00:55 Completed Basic Metabolic Panel AMLAB Lab 01/17/25 06:00 Ordered Basic Metabolic Panel AMLAB Lab 01/18/25 06:00 Ordered Blood alcohol [Ethyl Alcohol] Stat Lab 01/16/25 22:49 Completed C-Peptide Stat Lab 01/16/25 23:26 Received CBC w/Auto Diff [Complete Blood Count Auto Diff] Stat Lab 01/16/25 22:49 Completed CMP [Comprehensive Metabolic Panel] Stat Lab 01/16/25 22:49 Completed CRP [C-Reactive Protein] AMLAB Lab 01/17/25 06:00 Ordered Complete Blood Count Auto Diff AMLAB Lab 01/17/25 06:00 Ordered Complete Blood Count Auto Diff AMLAB Lab 01/18/25 06:00 Ordered Erythrocyte Sedimentation Rate AMLAB Lab 01/17/25 06:00 Ordered Full Resp Panel w/COVID ([facility]) Routine Lab 01/17/25 01:30 Received Lactic Acid Stat Lab 01/16/25 23:26 Completed Magnesium AMLAB Lab 01/17/25 06:00 Ordered Rapid PCR Covid and Flu A/B Stat Lab 01/16/25 23:00 Completed TSH [Thyroid Stimulating Hormone] Stat Lab 01/16/25 22:49 Completed Urinalysis and Microscopic Stat Lab 01/17/25 00:02 Completed Blood Culture Stat Micro 01/16/25 23:26 Received Tissue Perfus/Sepsis Re-Eval Sepsis Re-Evaluation Performed: Yes Date Performed: 01/17/25 Time Performed: 00:01 Medical Decision Narrative: In summary, this 64-year-old male with a past medical history of hypertension, hyperlipidemia, type 1 diabetes presents to the emergency department today with altered mental status and hypoglycemia. On initial evaluation patient is hypothermic with a rectal temperature of 94 Fahrenheit, normotensive, nontachycardic, GCS of 15, glucose of 83. Differential diagnosis includes but is not limited to hypoglycemia, surreptitious insulin use, dehydration, sepsis, environmental exposure. Based on these concerns, I ordered blood cultures x 2, CBC, CMP, thyroid panel, urinalysis, chest x-ray, alcohol level. ECG personally interpreted as noted above. Patient received Sarahi hugger and 1 L of warmed lactated Ringer's for treatment. Labs personally reviewed demonstrate leukocytosis of 18, chronic anemia w/ Hb 13.4, mild MICHELLE with a creatinine of 1.3 from a baseline of 1, BUN of 32, negative alcohol level. XR personally interpreted demonstrates no significant opacity or consolidation concerning for pneumonia however very poor lung volumes. At the time of shift change, handed care off to Dr. Garcia pending rest of laboratory workup resulting in urinalysis, reevaluation and treatment of possible sepsis. See l for ultimate impression and disposition. Radha BUCK: I assumed care of the patient at the time of handoff from the prior provider. On reassessment patient remains hemodynamically stable, normal mental status. Temperature increasing on the bear hugger repeat fingerstick 140. Blood work significant for leukocytosis at 18, elevated lactate of 4.4. Urinalysis does not show evidence of infection. Given hypoglycemia, hypothermia and laboratory findings, presentation is concerning for sepsis with uncertain source. Patient was initiated on broad-spectrum IV antibiotic therapy with vancomycin and Zosyn. Patient was not given any additional IV fluid resuscitation beyond 1 L due to concern for volume overload. Interactive discussion was had with hospitalist on-call for admission. Critical Care <Brad Chilel MD - Last Filed: 01/16/25 23:17> Critical Care Time Critical Care Time: No <Rashard Garcia MD - Last Filed: 01/17/25 01:58> Critical Care Time Critical Care Time: Yes Attestation: On 01/16/25, the high probability of a clinically significant, sudden or life threatening deterioration of the following system(s) required my full and direct attention, intervention and personal management. The time I documented below is in addition to time spent performing reported procedures but includes the following listed in this critical care notation. Total Time Total Critical Care Time: 35
--- NOTE | 2025-01-16 22:51 | XR_ITS ---
PROCEDURE INFORMATION: Exam: XR Chest Exam date and time: 01/16/2025 11:08 PM Age: 64 years old Clinical indication: Other: Sepsis TECHNIQUE: Imaging protocol: Radiologic exam of the chest. Views: 1 view. COMPARISON: CT ANGIO CHEST PE PROTOCOL 10/14/2024 6:48 PM FINDINGS: Lungs: Mild hilar hazy opacities may represent a mild pulmonary edema. Limited assessment of the lower lobes secondary to prominent overlying soft tissue. Pleural spaces: Unremarkable. No pleural effusion. No pneumothorax. Heart/Mediastinum: Unremarkable. No cardiomegaly. Bones/joints: Unremarkable. IMPRESSION: Mild hilar hazy opacities may represent a mild pulmonary edema.
[2025-01-16 22:58] LABS: Basophils % 0.2 % (0.1-2.0); Eosinophils % 0.2 % (0.1-12.0); Hemoglobin 13.4 g/dL (14.1-18.0); Lymphocytes # 0.6 K/mm3 (0.7-4.5); Lymphocytes % 3.2 % (10-50); Mean Corpuscular HGB Conc 33.5 g/dL (31.8-35.4); Mean Corpuscular Hemoglobin 32.4 pg (27.0-31.2); Mean Corpuscular Volume 96.6 fl (80-94); Mean Platelet Volume 9.2 fl (7.4-10.4); Monocytes # 0.5 K/mm3 (0.1-1.0); Monocytes % 2.6 % (1.7-9.3); Neutrophils # 17.1 K/mm3 (1.8-7.8); Neutrophils % 93.4 % (37.0-80.0); Platelet Count 346 K/mm3 (142-424); Red Blood Count 4.14 M/mm3 (4.60-6.20); Red Cell Distribution Width 13.5 % (11.5-17.5); White Blood Count 18.3 K/mm3 (4.8-10.8)
[2025-01-16 22:59] LABS: MANUAL DIFFERENTIAL MANUAL DIFFERENTIAL (MANUAL DIFF)
[2025-01-16 23:05] LABS: Chloride 101 mmol/L (98-107)
[2025-01-16 23:06] LABS: Albumin Level 4.3 g/dl (3.5-5.0); Potassium 4.7 mmoL/L (3.5-5.1); Sodium 138 mmol/L (136-145)
[2025-01-16 23:07] LABS: Coronavirus 19, PCR Not Detected (NotDetected); Influenza A, PCR Not Detected (NotDetected); Influenza B, PCR Not Detected (NotDetected)
[2025-01-16 23:08] LABS: Alanine Aminotransferase 72 U/L (12-78); Aspartate Amino Transferase 118 U/L (17-59); Blood Urea Nitrogen 32 mg/dl (9-20); Creatinine Clearance Estimated 103 mL/min (50-200); Estimated Glomerular Filt Rate 56 ml/min (>60); Ethyl Alcohol < 10 mg/dl (0-10); GFR (African American) 67 ML/MIN (>60)
[2025-01-16 23:09] LABS: Albumin/Globulin Ratio 1.6 (1.1-1.8); Alkaline Phosphatase 139 U/L (38-126); Anion Gap 15.7 mEq/L (5-15); Bilirubin,Total 0.4 mg/dl (0.2-1.3); Calcium 9.4 mg/dl (8.4-10.2); Carbon Dioxide 26 mmol/L (22.0-30.0); Globulin 2.7 g/dL (1.3-3.2); Glucose 124 mg/dl (74-100)
[2025-01-16] MEDS: LACTATED RINGERS 1000ML 1,000 ML 999 ML IV (23:14)
--- NOTE | 2025-01-16 23:15 | PC.NURSE ---
2240hrs patient arrived to the ED via EMS to the ED and transferred to hospital bed with assistance. MD at bedside. 2242hrs FSBS was 83mL/dL 2243hrs EKG obtained at bedside. 2250hrs I established an 18ga IV in patients R AC and collected labs. 2252hrs patient rectal temp of 94 degrees Fahrenheit, all appropriate measure taken. Bear hugger applied along with warm fluid administered. 2255hrs patient administered 1L of LR at a tko rate. 2300hrs patient given few sips of orange juice. 2305hrs second IV attempted without success x2 2308hrs RAD bedside for chest X-Rays. 2310hrs Lab at bedside to draw blood cultures. 2315hrs family at bedside. 2325hrs lab completed blood cultures.
[2025-01-16 23:19] VITALS: BP 151/83; PULSE 85; RESP 29; O2SAT 96
[2025-01-16 23:23] LABS: Lymphocytes % 5 % (10-50); Monocytes % 3 % (2-9); Neutrophils % 92 % (42-76); Nucleated Red Blood Cells 1; Total Cells Counted 100
[2025-01-16 23:25] LABS: Hypochromasia 1+
[2025-01-16 23:26] LABS: Stomatocytes 1+
[2025-01-16 23:27] LABS: Platelet Estimate Normal
[2025-01-16 23:28] VITALS: BP 122/73; PULSE 86; RESP 20; O2SAT 96
[2025-01-16 23:31] VITALS: BP 159/64; PULSE 86; RESP 20; O2SAT 96
--- NOTE | 2025-01-16 23:32 | PC.NURSE ---
2330hrs recheck on patient 400mLs of LR administered so far.
[2025-01-16 23:39] LABS: Thyroid Stimulating Hormone 1.02 uIU/mL (0.465-4.68)
[2025-01-16 23:45] LABS: Lactic Acid 4.4 mmol/L (0.7-2.1)
--- NOTE | 2025-01-16 23:46 | PC.WOUNDNOTE ---
Lactic 4.4 called by kenny in lab; notified Dr. Garcia
[2025-01-17] VITALS (12 sets, daily range): BP systolic 110–144; BP diastolic 59–81; PULSE 49–100; RESP 16–20; TEMP 35.4–36.9; O2SAT 96–100; BMI 37.2
[2025-01-17 00:19] LABS: Microscopic, Urine URINE MICROSCOPIC (MICROSCOPIC)
[2025-01-17 00:30] LABS: Appearance,Urine Clear (Clear); Bilirubin,Urine Negative (Negative); Blood, Urine Negative (Negative); Color,Urine Yellow (Yellow); Glucose,Urine (UA) Negative (Negative); Ketones,Urine Negative (Negative); Leukocyte Esterase,Urine Negative (Negative); Nitrate,Urine Negative (Negative); PH,Urine 6.5 (5.0-8.5); Protein,Urine Negative (Negative); Specific Gravity, Urine 1.015 (1.005-1.030); Urobilinogen,Urine 0.2 EU/dl (0.2)
[2025-01-17] MEDS: PIPERACILLIN/TAZO 4.5 GM in 0.9 % SODIUM CHLORIDE 100 ML IV (00:42)
[2025-01-17 00:57] LABS: Squamous Epithelial Cell,Urine Occasional #/hpf (0-5); WBC,Urine Occasional #/hpf (0-3)
[2025-01-17 00:58] LABS: Bacteria,Urine Trace /lpf
[2025-01-17] MEDS: VANCOMYCIN CONSULT REQUEST 1 EACH NOTAPPLIC (01:02)
--- NOTE | 2025-01-17 01:13 | PC.NURSE ---
pt arrived to floor from ed via wheelchair at 0110.
[2025-01-17 01:37] LABS: NT Pro Brain Natriuretic Pep. 212 pg/mL (0-125)
[2025-01-17 01:37] LABS: Adenovirus,PCR Not Detected (NotDetected); Bordetella Pertussis Not Detected (NotDetected); Chlamydophila Pneumoniae, PCR Not Detected (NotDetected); Coronavirus 19, PCR Not Detected (NotDetected); Coronavirus 229E Not Detected (NotDetected); Coronavirus NL63 Not Detected (NotDetected); Coronavirus OC43 Not Detected (NotDetected); Coronovirus HKU1,PCR Not Detected (NotDetected); Human Metapneumovirus Not Detected (NotDetected); Influenza A, PCR Not Detected (NotDetected); Influenza AH1, 2009 Not Detected (NotDetected); Influenza AH1, PCR Not Detected (NotDetected); Influenza AH3,PCR Not Detected (NotDetected); Influenza B, PCR Not Detected (NotDetected); Mycoplasma Pneumoniae, PCR Not Detected (NotDetected); Parainfluenza 1, PCR Not Detected (NotDetected); Parainfluenza 2, PCR Not Detected (NotDetected); Parainfluenza 3, PCR Not Detected (NotDetected); Parainfluenza 4, PCR Not Detected (NotDetected); Respiratory Syncytial Virus Not Detected (NotDetected); Rhinovirus/Enterovirus Not Detected (NotDetected)
[2025-01-17 03:12] LABS: POC Glucose,Bedside 129 (70-110)
--- NOTE | 2025-01-17 03:25 | PC.NURSE ---
patient reports he is concerned about a bill r/t being a [facility] patient - this RN informed patient a case management consult will be ordered and hospitalist/house aware.
[2025-01-17 03:31] LABS: Reflex Lactic Add Lactic Reflex
[2025-01-17 04:07] LABS: Lactic Acid Follow Up (RFLX 1) 2.4 mmol/L (0.7-2.1)
[2025-01-17] MEDS: VANCOMYCIN/WATER FOR INJ (PEG) 1.25 GM/250 ML PIGGYBACK IV ×2 (04:11→05:18)
[2025-01-17 04:52] LABS: NT Pro Brain Natriuretic Pep. 231 pg/mL (0-125)
--- NOTE | 2025-01-17 05:00 | P.HP_ITS ---
<Statement entered by Chato Alejandra MD - 01/17/25 14:42> Rounded on patient after nurse practitioner. Personally examined and interviewed patient. Agree with exam findings and care plan as documented. Unclear source of leukocytosis, criteria for sepsis. Will continue empiric antibiotics at this time. White count showing improvement to 16 on repeat labs in the morning. Kidney function appears stable with BUN 31 and creatinine 1.4. Inflammatory markers still elevated with CRP of 33. Will monitor cultures for at least 36 to 48 hours. If no identified infection, will wean to empiric course of antibiotics given white count with no clear explanation. Repeat CBC, CMP, magnesium ordered for the morning. Review of patient's workup shows normal urine, negative respiratory panel, has no pain or discomfort anywhere. Chest imaging with no clear sign of pneumonia and patient is hemodynamically stable on room air. In regard to hypoglycemia, will make adjustments to his diabetic regimen. Continue sliding scale for now. Anticipate change to insulin regimen at discharge. Holding diuretics. Patient alert and overall appears well today. Continues to require monitoring/inpatient History of Present Illness *Admission Date: 01/17/25 *Reason for visit:: Altered mental status *History of present illness: A 64-year-old male with a history of hypertension, hyperlipidemia, type 1 diabetes, diabetic foot ulcer, and pulmonary embolism (October 2024, on Eliquis) presents to the emergency department with altered mental status and hypoglycemia. Family called EMS after finding him not himself, with a glucose of 63 mg/dL on arrival. He reports not eating or drinking today and did not take his usual 45 units of Lantus insulin this morning. History was obtained from the patient and EMS. On arrival, he was hemodynamically stable, alert, oriented x4, with a [place] Coma Scale of 15, moving all extremities spontaneously, and pupils equal and reactive to light, though hypothermic (rectal temperature 94?F). Initial vital signs were normotensive and nontachycardic, with glucose improving to 83 mg/dL. Physical exam was notable for no acute distress. The differential diagnosis included hypoglycemia, surreptitious insulin use, dehydration, sepsis, and environmental exposure. Workup included CBC, CMP, thyroid panel, urinalysis, chest X-ray, blood cultures, lactate, and ECG. Labs revealed WBC 18.3 K/?L, Hgb 13.4 g/dL (chronic anemia), BUN 32 mg/dL, creatinine 1.30 mg/dL (eGFR 56 mL/min/1.73m?, baseline ~1.0 mg/dL), glucose 124 mg/dL, AST 118 U/L, ALT 72 U/L, BNP 212 pg/mL, and lactate 4.4 mmol/L; urinalysis was unremarkable, and alcohol level was <10 mg/dL. ECG showed normal sinus rhythm at 92 bpm, QTc 410 ms, no STEMI. Chest X- ray demonstrated poor lung volumes without pneumonia. He received a Sarahi Hugger and 1 L of warmed lactated Ringer?s for hypothermia and hypoglycemia. On reassessment by Dr. Garcia, he remained stable with normal mental status, temperature improving, and repeat glucose 140 mg/dL, but leukocytosis (18.3 K/?L) and elevated lactate (4.4 mmol/L) raised concern for sepsis of uncertain source. He was started on IV vancomycin and Zosyn, with no additional fluids due to volume overload risk. Chest x-ray showed mild hilar hazy opacities that may represent a mild pulmonary edema with visualization lower lobes limited by body habitus. Given his presentation, hypothermia, hypoglycemia, and labs, this most likely r epresents sepsis with an unclear source, possibly complicated by hypoglycemia from fasting. An interactive discussion with the ED physician confirmed admission, and the patient agreed to inpatient management. Upon arrival to the hospital floor recheck showed that patient core temperature had returned to 98.5. His mentation was alert and oriented. Removal of his compression stockings showed marked edema of his bilateral lower extremities. review of records [facility]24 [facility]. Discussed with patient whether he would [facility] and he stated that since he was at this facility he would prefer to stay rather than transfer in the middle of the evening. [facility] Disclaimer: The information contained in this section may have been updated after the patient was seen, as this information can be updated by other users. Medical History Coronary artery disease Restless sleeper Daytime somnolence Dyspnea Diabetes type I HLD (hyperlipidemia) HTN (hypertension) Social History Smoking Status: Never smoker alcohol intake: current alcohol intake frequency: holidays/special occasions only substance use type: denies use current occupational status: employed and disabled Travel in the last 8 weeks: Inside the [place] Have you lived/traveled outside US in past 30 days?: No Contact w/someone who lives/traveled outside US past 30 days?: No Exposure to someone with infectious disease in past 14 days?: No Do you have a fever (greater than 100.4 F or 38 C)?: No Have you tested positive for COVID-19: No Exposed to someone with COVID-19 in past 14 days?: No Do you have a sore throat?: No Do you have a cough?: No Do you have any weakness?: Yes Do you have any diarrhea?: No Are you experiencing any unusual bleeding?: No Do you have any muscle aches/pain?: No Do you have any abdominal pain?: No Are you experiencing loss of taste or smell?: No Other Medical History Have you received the Flu Vaccine for this season: No Have you received the Pneumonia Vaccine: No Review of Systems Review of Systems Review of systems (narrative): 13 point review of system negative except as listed in HPI Meds Home Medications and Allergies Home Medications ?Medication ?Instructions ?Recorded ?Confirmed ?Type metoprolol succinate 100 mg 100 mg PO DAILY 01/26/21 01/16/25 History tablet,extended release 24 hr potassium chloride 20 mEq 20 meq PO TID 01/26/21 01/16/25 History tablet,extended release(part/cryst) rosuvastatin 40 mg tablet 40 mg PO HS 01/26/21 01/16/25 History furosemide 20 mg tablet 20 mg PO DAILY 12/21/22 01/16/25 History allopurinol 300 mg tablet 300 mg PO DAILY 10/14/24 01/16/25 History insulin human U-100 NPH-regulr 45 unit SQ AM 10/14/24 01/16/25 History 70-30 mix 100 unit/mL subcutaneous susp (Humulin 70/30 U-100 Insulin) amlodipine 5 mg tablet 5 mg PO DAILY 10/15/24 01/16/25 History apixaban 5 mg tablet (Eliquis) 5 mg PO BID #30 tabs 10/15/24 01/16/25 Rx ascorbic acid (vitamin C) 500 mg 500 mg PO DAILY 10/15/24 01/16/25 History tablet cholecalciferol (vitamin D3) 100 100 mcg PO DAILY 10/15/24 01/16/25 History mcg (4,000 unit) tablet empagliflozin 10 mg tablet 10 mg PO DAILY 10/15/24 01/16/25 History ferrous gluconate 324 mg (38 mg 324 mg PO DAILY 10/15/24 01/16/25 History iron) tablet metolazone 5 mg tablet 5 mg PO DAILY 10/15/24 01/16/25 History triamterene 37.5 1 tab PO DAILY 10/15/24 01/16/25 History mg-hydrochlorothiazide 25 mg tablet valsartan 160 mg tablet 160 mg PO DAILY 10/15/24 01/16/25 History New Prescriptions to Start Prescriptions: Allergies Allergy/AdvReac Type Severity Reaction Status Date / Time No Known Allergies Allergy Unverified 10/15/24 07:22 Exam Data for Last 24 hours Vital signs and Labs for Last 24 Hours: Temp Pulse Resp BP Pulse Ox O2 Del Method 95.8 F L 91 H 20 144/81 H 97 Room Air 01/17/25 01:02 01/17/25 01:44 01/17/25 01:44 01/17/25 01:44 01/17/25 01:44 01/17/25 03:00 Laboratory Results - last 24 hr 01/16/25 22:49: WBC 18.3 H, RBC 4.14 L, Hgb 13.4 L, Hct 40.0 L, MCV 96.6 H, MCH 32.4 H, MCHC 33.5, RDW 13.5, Plt Count 346, MPV 9.2, Neut % (Auto) 93.4 H, Lymph % (Auto) 3.2 L, [place] % (Auto) 2.6, Eos % (Auto) 0.2, Baso % (Auto) 0.2, Neut # (Auto) 17.1 H, Lymph # (Auto) 0.6 L, [place] # (Auto) 0.5, Eos # (Auto) 0.0, Baso # (Auto) 0.0, Total Counted 100, Neutrophils % (Manual) 92 H, Lymphocytes % (Manual) 5 L, Monocytes % (Manual) 3, Nucleated RBCs 1, Platelet Estimate Normal, Hypochromasia 1+, Stomatocytes 1+, Sodium 138, Potassium 4.7, Chloride 101, Carbon Dioxide 26, Anion Gap 15.7 H, BUN 32 H, Creatinine 1.30 H, Estimated Creat Clear 103, Estimated GFR 56 L, Est GFR ( Amer) 67, Glucose 124 H, Calcium 9.4, Total Bilirubin 0.4, AST 118 H, ALT 72, Alkaline Phosphatase 139 H, NT-Pro-B Natriuret Pep 212 H, Total Protein 7.0, Albumin 4.3, Globulin 2.7, Albumin/Globulin Ratio 1.6, TSH 1.02, Plasma/Serum Alcohol < 10 01/16/25 23:00: SARS-CoV-2 (PCR) Not detected, Influenza A Untype (PCR) Not detected, Influenza Type B (PCR) Not detected 01/16/25 23:26: Lactate 4.4 H 01/17/25 00:02: Urine Color Yellow, Urine Appearance Clear, Urine pH 6.5, Ur Specific Hope 1.015, Urine Protein Negative, Urine Glucose (UA) Negative, Urine Ketones Negative, Urine Blood Negative, Urine Nitrate Negative, Urine Bilirubin Negative, Urine Urobilinogen 0.2, Ur Leukocyte Esterase Negative, Urine RBC None, Urine WBC Occasional, Ur Squamous Epith Cells Occasional, Urine Bacteria Trace 01/17/25 01:03: POC Glucose 129 H 01/17/25 01:30: Chlamy pneumoniae PCR Not detected, Adenovirus (PCR) Not detected, B. pertussis DNA (PCR) Not detected, Coronavirus OC43 (PCR) Not detected, Coronavirus HKU1 (PCR) Not detected, Coronavirus 229E (PCR) Not detected, SARS-CoV-2 (PCR) Not detected, Coronavirus NL63 (PCR) Not detected, Human Metapneumovir PCR Not detected, Influenza A (H1) PCR Not detected, Influ A (H1N1/09) PCR Not detected, Influenza A (H3) PCR Not detected, Influenza Type A (PCR) Not detected, Influenza Type B (PCR) Not detected, M. pneumoniae (PCR) Not detected, Parainfluenza 1 (PCR) Not detected, Parainfluenza 2 (PCR) Not detected, Parainfluenza 3 (PCR) Not detected, Parainfluenza 4 (PCR) Not detected, RSV (PCR) Not detected, Entero/Rhino (PCR) Not detected 03/09/25 03:50: Lactate 2.4 H, NT-Pro-B Natriuret Pep 231 H I & O for Last 24 hours: Intake & Output 01/14/25 01/15/25 01/16/25 01/18/25 23:59 23:59 23:59 00:59 Weight 124.738 kg 124.738 kg Constitutional Constitutional: no acute distress, obese, chronically ill appearing and disheveled *Routine HEENT Exam Head: Present normocephalic Eye: Present EOMI and PERRL ENT: Present mucous membranes moist *Routine Neck Exam Neck: Present supple; Absent lymphadenopathy *Routine Respiratory Exam Respiratory: Present CTA bilaterally; Absent accessory muscle use *Routine Cardiovascular Exam Cardiovascular: Present RRR *Routine Abdominal Exam Abdominal: Present soft and normoactive bowel sounds; Absent tenderness *Routine Rectal Exam Rectal:: deferred *Routine Genitalia Exam Genitalia:: deferred *Routine Extremities Exam Extremities: Present edema (3+ nonpitting edema of the ankles) and ISIAH stockings; Absent cyanosis or clubbing Comments: Onychomycosis bilateral feet *Routine Skin Exam Skin: Present warm and cracked; Absent rash Comments: Dry scaling skin sloughing bilateral feet. *Routine Neurological Exam Neurological: Present alert and oriented X3 Assessment and Plan *Assessment and plan (1) Hypoglycemia: Status: Acute Category: Medical Code(s): E16.2 - Hypoglycemia, unspecified (2) Sepsis: Status: Acute Category: Medical Code(s): A41.9 - Sepsis, unspecified organism (3) Callus of foot: Status: Acute Category: Medical Code(s): L84 - Corns and callosities (4) Onychomycosis: Status: Acute Category: Medical Code(s): B35.1 - Tinea unguium (5) Diabetes type I: Status: Acute Qualifiers: Diabetes mellitus complication status: without complication Qualified Code(s): E10.9 - Type 1 diabetes mellitus without complications Category: Medical Code(s): E10.9 - Type 1 diabetes mellitus without complications (6) HLD (hyperlipidemia): Status: Acute Qualifiers: Hyperlipidemia type: other hyperlipidemia Qualified Code(s): E78.49 - Other hyperlipidemia Category: Medical Code(s): E78.5 - Hyperlipidemia, unspecified (7) HTN (hypertension): Status: Acute Qualifiers: Hypertension type: essential hypertension Qualified Code(s): I10 - Essential (primary) hypertension Category: Medical Code(s): I10 - Essential (primary) hypertension (8) Coronary artery disease: Status: Acute Qualifiers: Coronary Disease-Associated Artery/Lesion type: [place] artery [place] vs. transplanted heart: [place] heart Associated angina: without angina Qualified Code(s): I25.10 - Atherosclerotic heart disease of [place] coronary ar [place] without angina pectoris Category: Medical Code(s): I25.10 - Atherosclerotic heart disease of [place] coronary artery without angina pectoris (9) Pulmonary emboli: Status: Acute Qualifiers: Acute cor pulmonale presence: unspecified Chronicity: unspecified Pulmonary embolism type: unspecified Qualified Code(s): I26.99 - Other pulmonary embolism without acute cor pulmonale Category: Medical Code(s): I26.99 - Other pulmonary embolism without acute cor pulmonale Plan Sepsis, Uncertain Source * Altered mental status, hypoglycemia (initial glucose 63 mg/dL), hypothermia (94?F), leukocytosis (WBC 18.3 K/?L), lactate 4.4 mmol/L; no UTI (clean UA), no pneumonia (CXR clear); hemodynamically stable after 1 L LR, temp improving, glucose 140 mg/dL. * Continue IV Zosyn 3.375 g q6h; blood cultures x 2 pending. * Monitor temp, mental status q4h; repeat lactate in 4-6h, trend WBC q24h x 2 days. * Full respiratory panel Hypoglycemia, Resolved * Initial glucose 63 mg/dL, no insulin today (usual Lantus 45 units AM) now 140 mg/dL post-treatment, mental status normal. * Hold Lantus until eating reliably; glucose checks q4h, D10 drip if <70 mg/dL; oral intake encouraged. * A1c pending. Bilateral Lower Extremity Edema, Likely Venous Insufficiency or Early CHF * 3+ pitting edema of feet/ankles after removing compression stockings; BNP 212 pg/mL, on furosemide 20 mg daily, metolazone 5 mg daily, triamterene-HCTZ 37.5/25 mg daily (diuretic noncompliance possible); Eliquis 5 mg BID for PE. * IV furosemide 40 mg x 1 now, then 20 mg q12h; target urine output 200 mL/hr; elevate legs, continue compression stockings. * BNP q24h, echo to assess EF (diuretics suggest possible CHF history); consider Dopplers to rule out DVT despite Eliquis. * Monitor edema, respiratory status q8h; hold further fluids beyond 1 L LR due to overload risk; cardiology consult. Diabetic Foot Changes with Onychomycosis * Dry scaling skin, onychomycosis on both feet; T1DM, prior foot ulcer; no overt infection (UA negative, no cellulitis), but possible sepsis source. * Recommend outpatient podiatry consult for debridement, fungal treatment wound care for scaling skin. * Daily foot exams; topical emollients for dryness; monitor for cellulitis. Acute Kidney Injury (MICHELLE) on Chronic Kidney Disease (CKD), * Cr 1.30 mg/dL (baseline 1.0 mg/dL Dec 2024), eGFR 56 , BUN 32 mg/dL (baseline 28 mg/dL); prerenal from dehydration/hypoglycemia, worsened by valsartan 160 mg daily; T1DM, * Monitor Cr q12h x 48h; avoid nephrotoxins (e.g., NSAIDs); adjust Eliquis (5 mg BID) for eGFR. * Renal US if Cr worsens or oliguria (<400 mL/day). Type 1 Diabetes Mellitus, Poorly Controlled * Initial glucose 63 mg/dL, states he took Lantus but med rec shows Humulin 70/30 45 units AM (not taken today), no food/drink; now 140 mg/dL, mental status normal. * Hold Humulin 70/30 until eating reliably; glucose checks q6h, D10 drip if <70 mg/dL; oral intake encouraged. * (clarify Humulin vs. Lantus discrepancy); A1c pending. * Resume Humulin 70/30 45 units AM once stable, adjust per endo with meal covera ge. History of Pulmonary Embolism, Stable * PE Oct 2024, on Eliquis; no current PE signs (CXR clear), BNP 212 pg/mL mild; edema raises DVT concern. But states compliant with Eliquis * Continue Eliquis (5 mg twice daily); monitor for SOB, hypoxia q4h. Chronic Comorbidities * HTN (on amlodipine 5 mg daily, valsartan 160 mg daily, metoprolol succinate 100 mg daily), hyperlipidemia (rosuvastatin 40 mg HS), gout (allopurinol 300 mg daily); MICHELLE and edema prompt valsartan hold. * Continue amlodipine 5 mg daily, metoprolol 100 mg daily; hold valsartan 160 mg daily until MICHELLE resolves (Cr <1.1 mg/dL), then restart at 80 mg daily if BP >140/90 mmHg or CHF confirmed; hold rosuvastatin as above; continue allopurinol 300 mg daily. * Monitor BP q4h (expect possible rise off valsartan, adjust amlodipine if >160/100 mmHg); hold potassium chloride 20 mEq TID (K+ 4.7 mmol/L); add cholecalciferol 100 mcg daily for vitamin D support. Disposition * 64M with T1DM, PE history, admitted for sepsis, hypoglycemia; high risk for decompensation. * Continue Eliquis twice daily; pantoprazole 40 mg PO daily PRN. * Daily CBC, BMP, lactate; CXR q24h if respiratory decline; * Hospitalist follow-up; PT/OT for mobility once stable. * Admit to telemetry; ICU if sepsis worsens (e.g., lactate rises, hypotension).
[2025-01-17 05:53] LABS: Reflex Lactic (2 hrs) Add Lactic Reflex
--- NOTE | 2025-01-17 06:19 | PC.NURSE ---
Addendum entered by Odalys Brown RN 01/17/25 06:50: recheck glucose 93 Addendum entered by Odalys Brown RN 01/17/25 06:35: rechecked at 0630 glucose 54. gave victoria helms, pb, and 240ml OJ with sugar. will recheck in 15min Original Note: patient glucose 52. gave 240ml OJ with 3 sugar packs. will recheck in 15 min
[2025-01-17] MEDS: PIPERCILLIN/TAZO 3.375 GM in 0.9 % SODIUM CHLORIDE 50 ML IV ×3 (07:20→20:26)
[2025-01-17] MEDS: CHOLECALCIFEROL 1,000 UNITS (25MCG) TABLET 100 MCG PO (09:10)
[2025-01-17] MEDS: metOLazone 2.5MG TABLET 5 MG PO (09:10)
[2025-01-17] MEDS: METOPROLOL SUCCINATE XL 100MG TABLET 100 MG PO (09:10)
[2025-01-17] MEDS: ASCORBIC ACID 500MG TAB 500 MG PO (09:10)
[2025-01-17] MEDS: ALLOPURINOL 300MG TABLET 300 MG PO (09:11)
[2025-01-17] MEDS: AMLODIPINE 5MG TABLET 5 MG PO (09:11)
[2025-01-17] MEDS: APIXABAN 5MG TABLET 5 MG PO ×2 (09:11→20:26)
[2025-01-17 10:28] LABS: Chloride 100 mmol/L (98-107); Sodium 133 mmol/L (136-145)
[2025-01-17 10:29] LABS: POC Glucose,Bedside 177 (70-110)
[2025-01-17 10:29] LABS: Potassium 5.1 mmoL/L (3.5-5.1)
[2025-01-17 10:31] LABS: Anion Gap 8.1 mEq/L (5-15); Blood Urea Nitrogen 31 mg/dl (9-20); Calcium 8.8 mg/dl (8.4-10.2); Carbon Dioxide 30 mmol/L (22.0-30.0); Creatinine Clearance Estimated 95 mL/min (50-200); Estimated Glomerular Filt Rate 51 ml/min (>60); GFR (African American) 62 ML/MIN (>60); Glucose 160 mg/dl (74-100)
[2025-01-17 10:32] LABS: Magnesium 1.9 mg/dl (1.6-2.3)
[2025-01-17 10:37] LABS: C-Reactive Protein 33.2 mg/L (0-4)
[2025-01-17 13:05] LABS: Hemoglobin A1C 6.9 % (4.0-6.0)
[2025-01-17 13:33] LABS: Basophils % 0.2 % (0.1-2.0); Eosinophils % 0.1 % (0.1-12.0); Hemoglobin 12.5 g/dL (14.1-18.0); Lymphocytes # 1.2 K/mm3 (0.7-4.5); Lymphocytes % 7.4 % (10-50); Mean Corpuscular HGB Conc 33.8 g/dL (31.8-35.4); Mean Corpuscular Hemoglobin 32.7 pg (27.0-31.2); Mean Corpuscular Volume 96.9 fl (80-94); Mean Platelet Volume 9.1 fl (7.4-10.4); Monocytes # 1.1 K/mm3 (0.1-1.0); Monocytes % 7.1 % (1.7-9.3); Neutrophils # 13.7 K/mm3 (1.8-7.8); Neutrophils % 84.8 % (37.0-80.0); Platelet Count 330 K/mm3 (142-424); Red Blood Count 3.82 M/mm3 (4.60-6.20); Red Cell Distribution Width 13.9 % (11.5-17.5); White Blood Count 16.2 K/mm3 (4.8-10.8)
[2025-01-17 13:37] LABS: MANUAL DIFFERENTIAL MANUAL DIFFERENTIAL (MANUAL DIFF)
[2025-01-17 13:59] LABS: Erythrocyte Sedimentation Rate 19 mm/hr (0-20)
--- NOTE | 2025-01-17 14:19 | PC.NURSE ---
Aox 4, up ad lissette, on RA, fsbg achs, 20g R AC sl, diabetic diet, consult CM.
[2025-01-17 14:49] LABS: Lymphocytes % 6 % (10-50); Monocytes % 10 % (2-9); Neutrophils % 83 % (42-76); Total Cells Counted 100
[2025-01-17 14:52] LABS: Anisocytosis 1+; Platelet Estimate Normal
[2025-01-17 14:53] LABS: Macrocytosis 1+; Poikilocytosis 1+; Spherocytes 1+; Target Cells 1+
[2025-01-17 16:11] LABS: POC Glucose,Bedside 188 (70-110)
[2025-01-17] MEDS: humaLOG 100 UNITS/ML 10ML VIAL (SSI) SUBCUT ×2 (16:41→21:03)
[2025-01-17 17:25] LABS: POC Glucose,Bedside 54 (70-110)
[2025-01-17 17:25] LABS: POC Glucose,Bedside 93 (70-110)
[2025-01-17 17:25] LABS: POC Glucose,Bedside 52 (70-110)
[2025-01-17] MEDS: PANTOPRAZOLE 40MG TABLET 40 MG PO (20:26)
[2025-01-17 20:39] LABS: POC Glucose,Bedside 182 (70-110)
--- NOTE | 2025-01-17 22:43 | ECG_ITS ---
APPROVED REPORT Exam: Resting ECG HR:92 bpm ECG Measurements Heart Rate 92 AXES FL 177 P 76 QRSd 102 QRS 36 QT 360 T 39 QTc 410 Conclusion SINUS RHYTHM NORMAL ECG UNCONFIRMED REPORT Electronically signed by : Brad Chilel, 01/16/2025 22:57:06
[2025-01-18] VITALS: PULSE 55
[2025-01-18] MEDS: PIPERCILLIN/TAZO 3.375 GM in 0.9 % SODIUM CHLORIDE 50 ML IV ×2 (02:30→06:40)
[2025-01-18 02:31] VITALS: BP 155/76; PULSE 57; TEMP 36.5; O2SAT 99
[2025-01-18 04:00] VITALS: PULSE 70; BMI 37.2
--- NOTE | 2025-01-18 05:13 | PC.NURSE ---
Pt continued to tolerate IV ABX. V/s, ox4. No acute events to report. Plan of care ongoing.
[2025-01-18] MEDS: humaLOG 100 UNITS/ML 10ML VIAL (SSI) SUBCUT ×2 (06:40→12:05)
[2025-01-18 06:42] LABS: POC Glucose,Bedside 154 (70-110)
--- NOTE | 2025-01-18 06:54 | P.CONS_ITS ---
History of Present Illness *Admission Date: 01/17/25 *History of present illness: A 64-year-old male with a history of hypertension, hyperlipidemia, type 1 diabetes, diabetic foot ulcer, and pulmonary embolism (October 2024, on Eliquis) presents to the emergency department with altered mental status and hypoglycemia. Family called EMS after finding him not himself, with a glucose of 63 mg/dL on arrival. He reports not eating or drinking today and did not take his usual 45 units of Lantus insulin this morning. History was obtained from the patient and EMS. On arrival, he was hemodynamically stable, alert, oriented x4, with a [place] Coma Scale of 15, moving all extremities spontaneously, and pupils equal and reactive to light, though hypothermic (rectal temperature 94?F). Initial vital signs were normotensive and nontachycardic, with glucose improving to 83 mg/dL. Physical exam was notable for no acute distress. The differential diagnosis included hypoglycemia, surreptitious insulin use, dehydration, sepsis, and environmental exposure. Workup included CBC, CMP, thyroid panel, urinalysis, chest X-ray, blood cultures, lactate, and ECG. Labs revealed WBC 18.3 K/?L, Hgb 13.4 g/dL (chronic anemia), BUN 32 mg/dL, creatinine 1.30 mg/dL (eGFR 56 mL/min/1.73m?, baseline ~1.0 mg/dL), glucose 124 mg/dL, AST 118 U/L, ALT 72 U/L, BNP 212 pg/mL, and lactate 4.4 mmol/L; urinalysis was unremarkable, and alcohol level was <10 mg/dL. ECG showed normal sinus rhythm at 92 bpm, QTc 410 ms, no STEMI. Chest X- ray demonstrated poor lung volumes without pneumonia. He received a Sarahi Hugger and 1 L of warmed lactated Ringer?s for hypothermia and hypoglycemia. On reassessment by Dr. Garcia, he remained stable with normal mental status, temperature improving, and repeat glucose 140 mg/dL, but leukocytosis (18.3 K/?L) and elevated lactate (4.4 mmol/L) raised concern for sepsis of uncertain source. He was started on IV vancomycin and Zosyn, with no additional fluids due to volume overload risk. Chest x-ray showed mild hilar hazy opacities that may represent a mild pulmonary edema with visualization lower lobes limited by body habitus. Given his presentation, hypothermia, hypoglycemia, and labs, this most likely represents sepsis with an unclear source, possibly complicated by hypoglycemia from fasting. An interactive discussion with the ED physician confirmed admission, and the patient agreed to inpatient management. Upon arrival to the hospital floor recheck showed that patient core temperature had returned to 98.5. His mentation was alert and oriented. Removal of his compression stockings showed marked edema of his bilateral lower extremities. review of records [facility]. Discussed with patient whether he would like to be transferred to the [place] and he stated that since he was at this facility he would prefer to stay rather than transfer in the middle of the evening. 01/18/25: Podiatry inpatient consult: -Patient awake sitting up in chair upon entering the room, he states he is feeling much better since admission. -Podiatry last saw patient while admitted here on 10/15/24, [facility] after [facility] -Patient would like to start his routine DFC with nail trimming with our office if possible. I spoke with his nurse to check with care management about this. [facility] Disclaimer: The information contained in this section may have been updated after the patient was seen, as this information can be updated by other users. Medical History Coronary artery disease Restless sleeper Daytime somnolence Dyspnea Diabetes type I HLD (hyperlipidemia) HTN (hypertension) Social History Smoking Status: Never smoker alcohol intake: current alcohol intake frequency: holidays/special occasions only substance use type: denies use current occupational status: employed and disabled Travel in the last 8 weeks: Inside the [place] Have you lived/traveled outside US in past 30 days?: No Contact w/someone who lives/traveled outside US past 30 days?: No Exposure to someone with infectious disease in past 14 days?: No Do you have a fever (greater than 100.4 F or 38 C)?: No Have you tested positive for COVID-19: No Exposed to someone with COVID-19 in past 14 days?: No Do you have a sore throat?: No Do you have a cough?: No Do you have any weakness?: Yes Do you have any diarrhea?: No Are you experiencing any unusual bleeding?: No Do you have any muscle aches/pain?: No Do you have any abdominal pain?: No Are you experiencing loss of taste or smell?: No Meds Home Medications and Allergies Home Medications ?Medication ?Instructions ?Recorded ?Confirmed ?Type metoprolol succinate 100 mg 100 mg PO DAILY 01/26/21 01/16/25 History tablet,extended release 24 hr potassium chloride 20 mEq 20 meq PO TID 01/26/21 01/16/25 History tablet,extended release(part/cryst) rosuvastatin 40 mg tablet 40 mg PO HS 01/26/21 01/16/25 History furosemide 20 mg tablet 20 mg PO DAILY 12/21/22 01/16/25 History allopurinol 300 mg tablet 300 mg PO DAILY 10/14/24 01/16/25 History insulin human U-100 NPH-regulr 45 unit SQ AM 10/14/24 01/16/25 History 70-30 mix 100 unit/mL subcutaneous susp (Humulin 70/30 U-100 Insulin) amlodipine 5 mg tablet 5 mg PO DAILY 10/15/24 01/16/25 History apixaban 5 mg tablet (Eliquis) 5 mg PO BID #30 tabs 10/15/24 01/16/25 Rx ascorbic acid (vitamin C) 500 mg 500 mg PO DAILY 10/15/24 01/16/25 History tablet cholecalciferol (vitamin D3) 100 100 mcg PO DAILY 10/15/24 01/16/25 History mcg (4,000 unit) tablet empagliflozin 10 mg tablet 10 mg PO DAILY 10/15/24 01/16/25 History ferrous gluconate 324 mg (38 mg 324 mg PO DAILY 10/15/24 01/16/25 History iron) tablet metolazone 5 mg tablet 5 mg PO DAILY 10/15/24 01/16/25 History triamterene 37.5 1 tab PO DAILY 10/15/24 01/16/25 History mg-hydrochlorothiazide 25 mg tablet valsartan 160 mg tablet 160 mg PO DAILY 10/15/24 01/16/25 History New Prescriptions to Start Prescriptions: Allergies Allergy/AdvReac Type Severity Reaction Status Date / Time No Known Allergies Allergy Unverified 12/05/24 07:22 Exam (Inpt) Vital signs and Labs for Last 24 Hours: Temp Pulse Resp BP Pulse Ox O2 Del Method 97.7 F 70 16 155/76 H 99 Room Air 01/18/25 02:31 01/18/25 04:00 01/17/25 20:22 01/18/25 02:31 01/18/25 02:31 01/18/25 06:10 Laboratory Results - last 24 hr 01/16/25 22:45: Hemoglobin A1c 6.9 H 01/17/25 06:14: POC Glucose 52 L 01/17/25 06:28: POC Glucose 54 L 01/17/25 06:49: POC Glucose 93 01/17/25 10:06: Sodium 133 L, Potassium 5.1, Chloride 100, Carbon Dioxide 30, Anion Gap 8.1, BUN 31 H, Creatinine 1.40 H, Estimated Creat Clear 95, Estimated GFR 51 L, Est GFR ( Amer) 62, Glucose 160 H D, Calcium 8.8, Magnesium 1.9, C-Reactive Protein 33.2 H 01/17/25 10:17: POC Glucose 177 H 01/17/25 13:20: WBC 16.2 H, RBC 3.82 L, Hgb 12.5 L, Hct 37.0 L, MCV 96.9 H, MCH 32.7 H, MCHC 33.8, RDW 13.9, Plt Count 330, MPV 9.1, Neut % (Auto) 84.8 H, Lymph % (Auto) 7.4 L, Price % (Auto) 7.1, Eos % (Auto) 0.1, Baso % (Auto) 0.2, Neut # (Auto) 13.7 H, Lymph # (Auto) 1.2, Price # (Auto) 1.1 H, Eos # (Auto) 0.0, Baso # (Auto) 0.0, Total Counted 100, Neutrophils % (Manual) 83 H, Band Neutrophils % 1.0, Lymphocytes % (Manual) 6 L, Monocytes % (Manual) 10 H, Platelet Estimate Normal, Poikilocytosis 1+, Anisocytosis 1+, Macrocytosis 1+, Spherocytes 1+, Target Cells 1+, ESR 19, Lactate 1.0 01/17/25 16:03: POC Glucose 188 H 01/17/25 20:32: POC Glucose 182 H 01/18/25 06:23: POC Glucose 154 H I & O for Labs for Last 24 Hours: Intake & Output 01/15/25 01/16/25 01/18/25 01/18/25 23:59 23:59 00:59 23:59 Intake Total 1740 / 1740 Output Total 0 / 0 Balance 1740 / 1740 Weight 275 lb 275 lb 0.003 oz 275 lb 0.003 oz Microbiology Reports for the Last 24 Hours: Microbiology 01/16/25 23:26 Blood Blood Culture - Preliminary NO GROWTH AFTER 24 HOURS 01/16/25 23:25 Blood Blood Culture - Preliminary NO GROWTH AFTER 24 HOURS Constitutional: Present no acute distress and cooperative Head: Present normocephalic Eye: Present as per HPI Neck: Present trachea midline Respiratory: Present normal respiratory effort and able to speak in complete sentences Cardiac: Present posterior tibial pulses present and pedal pulses present Comments:: deferred Rectal (male): Present deferred (male): Present deferred Extremities: Present normal capillary refill and edema (3+ b/l pedal and lower extremity edema noted); Absent calf tenderness Comment:: -Plan to apply Unna boots after ZHEN's done. Skin: Present intact, dry, warm and normal turgor Comment:: Thick callused skin, long dystrophic nails. -Nails trimmed at bedside, nails are crumbly due to onychomycosis -Onychomycosis noted to all the nails -Calluses starting on sub-first no debridement needed. -Skin intact, very dry and flaky, no visible ulcers or breaks in skin -Unable to palpate his DP/ PT pulses b/l due to edema. -Plan to obtain ZHEN's this morning while inpatient Neuro: Present Grossly Intact, oriented x 3, tone normal and moves all extremities Comment:: Light touch protective sensation intact, no focal deficits, nml muscle mass. Good sensation noted. Ankle: bilateral: normal inspection and bilateral: swelling (3+pedal and ankle edema ) Comment:: Patient states he has edema to his feet and legs all the time but is usually managed by wearing his compression hose. -Plan to obtain ZHEN's and B/L foot x-rays this morning. Feet/Toes: bilateral: nail abnormalities (Thickened, discolored nails), bilateral: Ingrown Toenail (Incurvated nail), bilateral: onychomycosis (nails thick and crumbly with nail fungus ) and bilateral: swelling (3+ pedal edema ) Inspection: Present nail disorder and calluses/corns; Absent skin break or infection Pulses: L dorsalis pedis pulse: diminished (unable to palpate due to 3+ edema ), R dorsalis pedis pulse: diminished ( ), L posterior tibial pulse: diminished (unable to palpate due to 3+ edema ) and R posterior tibial pulse: diminished ( ) CFT: normal: CFT Monofilament exam: L 1st metatarsals: normal, L 3rd metatarsals: normal, L 5th metatarsals: normal, L great toe: normal, L 3rd toe: normal, L 5th toe: normal, R 1st metatarsals: normal, R 3rd metatarsals: normal, R 5th metatarsals: normal, R great toe: normal, R 3rd toe: normal and R 5th toe: normal Pinprick: L great toe: normal and R great toe: normal Ankle reflex: Left: normal and Right: normal Results Labs 01/18/25 06:32 01/18/25 06:32 Labs: Abnormal lab results 01/16/25 01/17/25 01/17/25 Range/Units 22:45 06:14 06:28 WBC (4.8-10.8) K/mm3 RBC (4.60-6.20) M/mm3 Hgb (14.1-18.0) g/dL Hct (42.0-52.0) % MCV (80-94) fl MCH (27.0-31.2) pg Neut % (Auto) (37.0-80.0) % Lymph % (Auto) (10-50) % Neut # (Auto) (1.8-7.8) K/mm3 Price # (Auto) (0.1-1.0) K/mm3 Neutrophils % (Manual) (42-76) % Lymphocytes % (Manual) (10-50) % Monocytes % (Manual) (2-9) % Sodium (136-145) mmol/L BUN (9-20) mg/dl Creatinine (0.66-1.25) mg/dl Estimated GFR (>60) ml/min Glucose (74-100) mg/dl POC Glucose 52 L 54 L (70-110) Hemoglobin A1c 6.9 H (4.0-6.0) % C-Reactive Protein (0-4) mg/L 01/17/25 01/17/25 01/17/25 Range/Units 10:06 10:17 13:20 WBC 16.2 H (4.8-10.8) K/mm3 RBC 3.82 L (4.60-6.20) M/mm3 Hgb 12.5 L (14.1-18.0) g/dL Hct 37.0 L (42.0-52.0) % MCV 96.9 H (80-94) fl MCH 32.7 H (27.0-31.2) pg Neut % (Auto) 84.8 H (37.0-80.0) % Lymph % (Auto) 7.4 L (10-50) % Neut # (Auto) 13.7 H (1.8-7.8) K/mm3 Price # (Auto) 1.1 H (0.1-1.0) K/mm3 Neutrophils % (Manual) 83 H (42-76) % Lymphocytes % (Manual) 6 L (10-50) % Monocytes % (Manual) 10 H (2-9) % Sodium 133 L (136-145) mmol/L BUN 31 H (9-20) mg/dl Creatinine 1.40 H (0.66-1.25) mg/dl Estimated GFR 51 L (>60) ml/min Glucose 160 H D (74-100) mg/dl POC Glucose 177 H (70-110) Hemoglobin A1c (4.0-6.0) % C-Reactive Protein 33.2 H (0-4) mg/L 01/17/25 01/17/25 01/18/25 Range/Units 16:03 20:32 06:23 WBC (4.8-10.8) K/mm3 RBC (4.60-6.20) M/mm3 Hgb (14.1-18.0) g/dL Hct (42.0-52.0) % MCV (80-94) fl MCH (27.0-31.2) pg Neut % (Auto) (37.0-80.0) % Lymph % (Auto) (10-50) % Neut # (Auto) (1.8-7.8) K/mm3 Price # (Auto) (0.1-1.0) K/mm3 Neutrophils % (Manual) (42-76) % Lymphocytes % (Manual) (10-50) % Monocytes % (Manual) (2-9) % Sodium (136-145) mmol/L BUN (9-20) mg/dl Creatinine (0.66-1.25) mg/dl Estimated GFR (>60) ml/min Glucose (74-100) mg/dl POC Glucose 188 H 182 H 154 H (70-110) Hemoglobin A1c (4.0-6.0) % C-Reactive Protein (0-4) mg/L H & H 01/16/25 01/17/25 Range/Units 22:49 13:20 Hgb 13.4 L 12.5 L (14.1-18.0) g/dL Hct 40.0 L 37.0 L (42.0-52.0) % All other labs normal. Assessment and Plan *Assessment and plan (1) Syncope and collapse: Status: Resolved Category: Medical Code(s): R55 - Syncope and collapse (2) Pulmonary emboli: Status: Acute Qualifiers: Acute cor pulmonale presence: unspecified Chronicity: unspecified P ulmonary embolism type: unspecified Qualified Code(s): I26.99 - Other pulmonary embolism without acute cor pulmonale Category: Medical Code(s): I26.99 - Other pulmonary embolism without acute cor pulmonale (3) Hypoglycemia: Status: Resolved Category: Medical Code(s): E16.2 - Hypoglycemia, unspecified (4) Coronary artery disease: Status: Acute Qualifiers: Associated angina: without angina Coronary Disease-Associated Artery/Lesion type: [place] artery [place] vs. transplanted heart: [place] heart Qualified Code(s): I25.10 - Atherosclerotic heart disease of [place] coronary artery without angina pectoris Category: Medical Code(s): I25.10 - Atherosclerotic heart disease of [place] coronary artery without angina pectoris (5) Dyspnea: Status: Acute Qualifiers: Dyspnea type: dyspnea on exertion Qualified Code(s): R06.00 - Dyspnea, unspecified Category: Medical Code(s): R06.00 - Dyspnea, unspecified (6) Diabetes type I: Status: Acute Qualifiers: Diabetes mellitus complication status: without complication Qualified Code(s): E10.9 - Type 1 diabetes mellitus without complications Category: Medical Code(s): E10.9 - Type 1 diabetes mellitus without complications (7) HLD (hyperlipidemia): Status: Acute Qualifiers: Hyperlipidemia type: other hyperlipidemia Qualified Code(s): E78.49 - Other hyperlipidemia Category: Medical Code(s): E78.5 - Hyperlipidemia, unspecified (8) HTN (hypertension): Status: Acute Qualifiers: Hypertension type: essential hypertension Qualified Code(s): I10 - Essential (primary) hypertension Category: Medical Code(s): I10 - Essential (primary) hypertension (9) Onychodystrophy: Status: Acute Category: Medical Code(s): L60.3 - Nail dystrophy (10) Diabetic foot: Status: Acute Category: Medical Code(s): E11.8 - Type 2 diabetes mellitus with unspecified complications (11) Onychomycosis: Status: Acute Category: Medical Code(s): B35.1 - Tinea unguium (12) Callus of foot: Status: Acute Category: Medical Code(s): L84 - Corns and callosities (13) Keratosis: Status: Resolved Category: Medical Code(s): L57.0 - Actinic keratosis (14) Avulsion of nail plate: Status: Resolved Category: Medical (15) Decreased pedal pulses: Status: Acute Category: Medical Code(s): R09.89 - Other specified symptoms and signs involving the circulatory and respiratory systems (16) Edema of both lower extremities: Status: Acute Category: Medical Code(s): R60.0 - Localized edema (17) Edema of both feet: Status: Acute Category: Medical Code(s): R60.0 - Localized edema Plan 01/18/25: Labs evaluated: WBC 10.8. neutrophils 8.2, glucose 145, esr 19 01/17. crp 33.2 01/17 Onychodystrophy, onychomycosis, Keratosis: Nails were debrided x?s 10 utilizing manual debridement with a nail nipper. Patient tolerated the procedure well. Nail fungus noted to all the nails, thick and crumbly Patient [facility] Pod[facility] for his DFC/nail trimming. Discussed with him to start applying moisturizer to feet and legs daily to avoid skin breakdown Callus Care: Calluses are starting to bilateral sub-first, they were not debrided. Recommend for patient to apply bland moisturization to callused areas daily. Decreased pedal pulses R09.89,B/L Pedal and Lower Extremity edema: Discussed with the patient the possibility of vascular disease. I explained the difference between macro and micro vascular disease. I explained that macrovascular disease usually involves stenosis or blockage of arteries and requires stenting to open up the vessel to improve circulation. I explained that microvascular disease is much harder to treat because you cannot stent this and it often involves the feet. We discussed how problems with arterial circulation can cause coldness and discoloration to the toes, pain to the digits, delayed healing of wounds, arterial wounds, and gangrene. We discussed how problems with venous circulation can cause fluid retention, swelling, pain and delayed healing of venous wounds. Check vascular studies: ZHEN/toe pressures to evaluate for decreased pedal pulses, 3+ pedal and lower extremity edema Plan to apply Unna boots after his ZHEN's are completed He may follow up with us as needed or in 3 months for DFC nail trimming He does not require any surgical or other podiatry needs from us All orders and recommendations per Dr. Flynn
[2025-01-18 07:19] LABS: Basophils # 0.1 K/mm3 (0-0.2); Basophils % 0.5 % (0.1-2.0); Eosinophils # 0.2 K/mm3 (0.0-0.4); Eosinophils % 1.4 % (0.1-12.0); Hematocrit 37.9 % (42.0-52.0); Hemoglobin 12.8 g/dL (14.1-18.0); Lymphocytes # 1.6 K/mm3 (0.7-4.5); Mean Corpuscular HGB Conc 33.8 g/dL (31.8-35.4); Mean Corpuscular Hemoglobin 32.4 pg (27.0-31.2); Mean Corpuscular Volume 95.9 fl (80-94); Mean Platelet Volume 9.6 fl (7.4-10.4); Monocytes # 0.8 K/mm3 (0.1-1.0); Monocytes % 7.3 % (1.7-9.3); Neutrophils # 8.2 K/mm3 (1.8-7.8); Neutrophils % 75.3 % (37.0-80.0); Platelet Count 323 K/mm3 (142-424); Red Blood Count 3.95 M/mm3 (4.60-6.20); White Blood Count 10.8 K/mm3 (4.8-10.8)
[2025-01-18 07:23] LABS: Anion Gap 9.8 mEq/L (5-15); Blood Urea Nitrogen 27 mg/dl (9-20); Calcium 9.4 mg/dl (8.4-10.2); Carbon Dioxide 28 mmol/L (22.0-30.0); Chloride 102 mmol/L (98-107); Creatinine Clearance Estimated 95 mL/min (50-200); Estimated Glomerular Filt Rate 51 ml/min (>60); GFR (African American) 62 ML/MIN (>60); Glucose 145 mg/dl (74-100); Potassium 3.8 mmoL/L (3.5-5.1); Sodium 136 mmol/L (136-145)
--- NOTE | 2025-01-18 07:36 | XR_ITS ---
FINAL REPORT CLINICAL HISTORY: Diabetic foot pain FINDINGS: LEFT FOOT Three views demonstrate no acute fracture or dislocation. There are hypertrophic changes of the first metatarsophalangeal joint. There is mild bony erosion in the medial aspect of the distal first metatarsal measuring 4 mm. A small plantar spur is noted. There is mild vascular calcification. There is soft tissue swelling along the medial aspect of the first metatarsophalangeal joint. Soft tissue swelling over the dorsum of the foot measures approximately 2 cm. IMPRESSION: Edema along the medial aspect of the first metatarsophalangeal joint with mild bony erosion. While this may be degenerative or infectious in nature, osteomyelitis cannot be excluded. Reviewed, Interpreted and Dictated by Dwight Arcos MD Transcribed by Faye Rico Authenticated and [facility]
--- NOTE | 2025-01-18 07:36 | XR_ITS ---
FINAL REPORT CLINICAL HISTORY: DM foot COMPARISON: None FINDINGS: ANKLE-BRACHIAL PRESSURE INDICES Pressure indices are as follows: RIGHT LOWER EXTREMITY: Ankle-brachial pressure index: 1.2 Comments: Normal LEFT LOWER EXTREMITY: Ankle-brachial pressure index: 1.0 Comments: Normal CONCLUSION: No evidence of significant obstructive peripheral vascular disease of the lower extremities Reviewed, Interpreted and Dictated by Dwight Arcos MD Transcribed by Edel Manuel Authenticated and [facility]
--- NOTE | 2025-01-18 07:43 | US_ITS ---
FINAL REPORT CLINICAL HISTORY: DM,HTN,HLD,EDEMA,CAD,DECREASED PEDAL PULSES COMPARISON: None FINDINGS: ANKLE-BRACHIAL PRESSURE INDICES Pressure indices are as follows: RIGHT LOWER EXTREMITY: Ankle-brachial pressure index: 1.2 Comments: Normal LEFT LOWER EXTREMITY: Ankle-brachial pressure index: 1.0 Comments: Normal CONCLUSION: No evidence of significant obstructive peripheral vascular disease of the lower extremities Reviewed, Interpreted and Dictated by Dwight Arcos MD Transcribed by Edel Manuel Authenticated and . [facility]
[2025-01-18 08:00] VITALS: BP 124/68; PULSE 80; PULSE 86; RESP 16; TEMP 36.4; O2SAT 96
--- NOTE | 2025-01-18 08:06 | P.DS_ITS ---
General Admission date:: 01/17/25 Discharge date: 01/18/25 HPI HPI HPI: A 64-year-old male with a history of hypertension, hyperlipidemia, type 1 diabetes, diabetic foot ulcer, and pulmonary embolism (October 2024, on Eliquis) presents to the emergency department with altered mental status and hypoglycemia. Family called EMS after finding him not himself, with a glucose of 63 mg/dL on arrival. He reports not eating or drinking today and did not take his usual 45 units of Lantus insulin this morning. History was obtained from the patient and EMS. On arrival, he was hemodynamically stable, alert, oriented x4, with a [place] Coma Scale of 15, moving all extremities spontaneously, and pupils equal and reactive to light, though hypothermic (rectal temperature 94?F). Initial vital signs were normotensive and nontachycardic, with glucose improving to 83 mg/dL. Physical exam was notable for no acute distress. The differential diagnosis included hypoglycemia, surreptitious insulin use, dehydration, sepsis, and environmental exposure. Workup included CBC, CMP, thyroid panel, urinalysis, chest X-ray, blood cultures, lactate, and ECG. Labs revealed WBC 18.3 K/?L, Hgb 13.4 g/dL (chronic anemia), BUN 32 mg/dL, creatinine 1.30 mg/dL (eGFR 56 mL/min/1.73m?, baseline ~1.0 mg/dL), glucose 124 mg/dL, AST 118 U/L, ALT 72 U/L, BNP 212 pg/mL, and lactate 4.4 mmol/L; urinalysis was unremarkable, and alcohol level was <10 mg/dL. ECG showed normal sinus rhythm at 92 bpm, QTc 410 ms, no STEMI. Chest X- ray demonstrated poor lung volumes without pneumonia. He received a Sarahi Hugger and 1 L of warmed lactated Ringer?s for hypothermia and hypoglycemia. On reassessment by Dr. Garcia, he remained stable with normal mental status, temperature improving, and repeat glucose 140 mg/dL, but leukocytosis (18.3 K/?L ) and elevated lactate (4.4 mmol/L) raised concern for sepsis of uncertain source. He was started on IV vancomycin and Zosyn, with no additional fluids due to volume overload risk. Chest x-ray showed mild hilar hazy opacities that may represent a mild pulmonary edema with visualization lower lobes limited by body habitus. Given his presentation, hypothermia, hypoglycemia, and labs, this most likely represents sepsis with an unclear source, possibly complicated by hypoglycemia from fasting. An interactive discussion with the ED physician confirmed admission, and the patient agreed to inpatient management. Upon arrival to the hospital floor recheck showed that patient core temperature had returned to 98.5. His mentation was alert and oriented. Removal of his compression stockings showed marked edema of his bilateral lower extremities. review of records [facility]24 [facility]. Discussed with patient whether he would like to be transferred to the [facility] and he stated that since he was at this facility he would prefer to stay rather than transfer in the middle of the evening. Hospital Course Hospital Course Hospital Course: 64-year-old male with multiple comorbidities including diabetes, PE history, lower extremity edema, chronic lymphedema, who presents with hypoglycemic event and concern for SIRS. Had similar presentation in October with a syncopal event and diagnosis of PE at that time. On this presentation, initiated on empiric antibiotics. Showed improvement during admission. Adjustments made to home regimen for his diabetes and hypertension. Needs close follow-up with his primary care with the [facility]. Overall doing better. No clear sign of infection identified however given improvement in white cell count, body temperature, lactate, will treat empirically for 5 days with antibiotics. Stable discharge home with continued management as an outpatient. Problems addressed as follows: #SIRS -Patient presented with some confusion, hypoglycemia (glucose 63), hypothermia (94 ?F), and white count of 18. Lactate was 4.4. Urine was clean. No pneumonia on chest imaging. Unclear source of potential infection. Monitored for 48 hours, blood cultures remained negative. Will complete 5 days of antibiotics with transition to Augmentin. Patient feeling well by day of discharge. White count normal at 10.8. Kidney function normal with BUN 27, creatinine 1.4. #Right middle, lower lobe pulmonary embolus #Left vertebral artery stenosis, severe -PE identified in October on CTA. Continue Eliquis 5 mg twice daily to complete 3 months of therapy. Stable on room air. Review of echo from last visit shows normal BiV function with no valvular issues. #Type 2 diabetes - Hemoglobin A1c 6.5 last admission, 6.8 this admission. Morning glucose 145. Adjustments made to insulin regimen given skin troll. Can you empagliflozin 10 mg daily decrease Humulin 70/30 to 12 units once daily in the morning. Concerned that patient's treatment/glucose control was too aggressive leading to his hyperglycemia and events. He reports he was having to eat after taking his insulin or he would have lows. Needs repeat A1c in 6 months to monitor stability of A1c control #Hypertension # Bilateral lower extremity edema, likely venous insufficiency - Pressures stable. Continue home regimen. Adjustments made to diuretic regimen however given over diuresis this. Good continue triamterene/HCTZ 1 tablet daily, continue valsartan 160 mg daily, continue potassium supplementation, continue metolazone 5 mg daily, continue metoprolol succinate 100 mg daily, hold amlodipine and Lasix pending follow-up with PCP. #Hyperlipidemia - Continue Crestor 40 mg daily. #Diabetic Foot Changes with Onychomycosis - Dry scaling skin, onychomycosis on both feet; T1DM, prior foot ulcer; no overt infection (UA negative, no cellulitis). Podiatry consulted, evaluated feet. Recommend Unna boots. Patient found to have normal ABIs. Recommend follow-up as an outpatient with podiatry. [facility] Total time spent on discharge 35 minutes in counseling, documentation, chart review, and direct care with patient. Exam Data for Last 24 hours Vital signs and Labs for Last 24 Hours: Temp Pulse Resp BP Pulse Ox O2 Del Method 97.7 F 70 16 155/76 H 99 Room Air 01/18/25 02:31 01/18/25 04:00 01/17/25 20:22 01/18/25 02:31 01/18/25 02:31 01/18/25 06:10 Laboratory Results - last 24 hr 01/16/25 22:45: Hemoglobin A1c 6.9 H 01/17/25 06:14: POC Glucose 52 L 01/17/25 06:28: POC Glucose 54 L 01/17/25 06:49: POC Glucose 93 01/17/25 10:06: Sodium 133 L, Potassium 5.1, Chloride 100, Carbon Dioxide 30, Anion Gap 8.1, BUN 31 H, Creatinine 1.40 H, Estimated Creat Clear 95, Estimated GFR 51 L, Est GFR ( Amer) 62, Glucose 160 H D, Calcium 8.8, Magnesium 1.9, C-Reactive Protein 33.2 H 01/17/25 10:17: POC Glucose 177 H 01/17/25 13:20: WBC 16.2 H, RBC 3.82 L, Hgb 12.5 L, Hct 37.0 L, MCV 96.9 H, MCH 32.7 H, MCHC 33.8, RDW 13.9, Plt Count 330, MPV 9.1, Neut % (Auto) 84.8 H, Lymph % (Auto) 7.4 L, [place] % (Auto) 7.1, Eos % (Auto) 0.1, Baso % (Auto) 0.2, Neut # (Auto) 13.7 H, Lymph # (Auto) 1.2, [place] # (Auto) 1.1 H, Eos # (Auto) 0.0, Baso # (Auto) 0.0, Total Counted 100, Neutrophils % (Manual) 83 H, Band Neutrophils % 1.0, Lymphocytes % (Manual) 6 L, Monocytes % (Manual) 10 H, Platelet Estimate Normal, Poikilocytosis 1+, Anisocytosis 1+, Macrocytosis 1+, Spherocytes 1+, Target Cells 1+, ESR 19, Lactate 1.0 01/17/25 16:03: POC Glucose 188 H 01/17/25 20:32: POC Glucose 182 H 01/18/25 06:23: POC Glucose 154 H 01/18/25 06:32: WBC 10.8 D, RBC 3.95 L, Hgb 12.8 L, Hct 37.9 L, MCV 95.9 H, MCH 32.4 H, MCHC 33.8, RDW 14.0, Plt Count 323, MPV 9.6, Neut % (Auto) 75.3, Lymph % (Auto) 15.0, [place] % (Auto) 7.3, Eos % (Auto) 1.4, Baso % (Auto) 0.5, Neut # (Auto) 8.2 H, Lymph # (Auto) 1.6, [place] # (Auto) 0.8, Eos # (Auto) 0.2, Baso # (Auto) 0.1, Sodium 136, Potassium 3.8 D, Chloride 102, Carbon Dioxide 28, Anion Gap 9.8, BUN 27 H, Creatinine 1.40 H, Estimated Creat Clear 95, Estimated GFR 51 L, Est GFR ( Amer) 62, Glucose 145 H, Calcium 9.4 I & O for Last 24 hours: Intake & Output 01/15/25 01/16/25 01/18/25 01/18/25 23:59 23:59 00:59 23:59 Intake Total 1740 / 1740 Output Total 0 / 0 Balance 1740 / 1740 Weight 124.738 kg 124.738 kg 124.738 kg Microbiology Reports for the Last 24 Hours: Microbiology 01/16/25 23:26 Blood Blood Culture - Preliminary NO GROWTH AFTER 24 HOURS 01/16/25 23:25 Blood Blood Culture - Preliminary NO GROWTH AFTER 24 HOURS Constitutional Constitutional: no acute distress, obese, chronically ill appearing and cooperative *Routine HEENT Exam Head: Present normocephalic Eye: Present EOMI and PERRL ENT: Present mucous membranes moist *Routine Neck Exam Neck: Present supple; Absent lymphadenopathy *Routine Respiratory Exam Respiratory: Present CTA bilaterally; Absent rhonchi, wheezes or crackles *Routine Cardiovascular Exam Cardiovascular: Present RRR *Routine Abdominal Exam Abdominal: Present soft and normoactive bowel sounds; Absent tenderness *Routine Rectal Exam Patient deferred: visual exam *Routine Exam Patient deferred: penile exam *Routine Extremities Exam Extremities: Present edema (bilateral ankles); Absent cyanosis or clubbing *Routine Skin Exam Skin: Present intact and warm; Absent rash *Routine Neurological Exam Neurological: Present alert, oriented X3 and moving all extremities; Absent alt ered mental status Results Data Completed and Pending Labs on day of discharge: Labs from last 24 hours 01/18/25 01/18/25 01/17/25 06:32 06:23 20:32 WBC 10.8 D RBC 3.95 L Hgb 12.8 L Hct 37.9 L MCV 95.9 H MCH 32.4 H MCHC 33.8 RDW 14.0 Plt Count 323 MPV 9.6 Neut % (Auto) 75.3 Lymph % (Auto) 15.0 [place] % (Auto) 7.3 Eos % (Auto) 1.4 Baso % (Auto) 0.5 Neut # (Auto) 8.2 H Lymph # (Auto) 1.6 [place] # (Auto) 0.8 Eos # (Auto) 0.2 Baso # (Auto) 0.1 Total Counted Neutrophils % (Manual) Band Neutrophils % Lymphocytes % (Manual) Monocytes % (Manual) Platelet Estimate Poikilocytosis Anisocytosis Macrocytosis Spherocytes Target Cells ESR Sodium 136 Potassium 3.8 D Chloride 102 Carbon Dioxide 28 Anion Gap 9.8 BUN 27 H Creatinine 1.40 H Estimated Creat Clear 95 Estimated GFR 51 L Est GFR ( Amer) 62 Glucose 145 H POC Glucose 154 H 182 H Hemoglobin A1c Lactate Calcium 9.4 Magnesium C-Reactive Protein 01/17/25 01/17/25 01/17/25 16:03 13:20 10:17 WBC 16.2 H RBC 3.82 L Hgb 12.5 L Hct 37.0 L MCV 96.9 H MCH 32.7 H MCHC 33.8 RDW 13.9 Plt Count 330 MPV 9.1 Neut % (Auto) 84.8 H Lymph % (Auto) 7.4 L [place] % (Auto) 7.1 Eos % (Auto) 0.1 Baso % (Auto) 0.2 Neut # (Auto) 13.7 H Lymph # (Auto) 1.2 [place] # (Auto) 1.1 H Eos # (Auto) 0.0 Baso # (Auto) 0.0 Total Counted 100 Neutrophils % (Manual) 83 H Band Neutrophils % 1.0 Lymphocytes % (Manual) 6 L Monocytes % (Manual) 10 H Platelet Estimate Normal Poikilocytosis 1+ Anisocytosis 1+ Macrocytosis 1+ Spherocytes 1+ Target Cells 1+ ESR 19 Sodium Potassium Chloride Carbon Dioxide Anion Gap BUN Creatinine Estimated Creat Clear Estimated GFR Est GFR ( Amer) Glucose POC Glucose 188 H 177 H Hemoglobin A1c Lactate 1.0 Calcium Magnesium C-Reactive Protein 01/17/25 01/17/25 01/17/25 10:06 06:49 06:28 WBC RBC Hgb Hct MCV MCH MCHC RDW Plt Count MPV Neut % (Auto) Lymph % (Auto) [place] % (Auto) Eos % (Auto) Baso % (Auto) Neut # (Auto) Lymph # (Auto) [place] # (Auto) Eos # (Auto) Baso # (Auto) Total Counted Neutrophils % (Manual) Band Neutrophils % Lymphocytes % (Manual) Monocytes % (Manual) Platelet Estimate Poikilocytosis Anisocytosis Macrocytosis Spherocytes Target Cells ESR Sodium 133 L Potassium 5.1 Chloride 100 Carbon Dioxide 30 Anion Gap 8.1 BUN 31 H Creatinine 1.40 H Estimated Creat Clear 95 Estimated GFR 51 L Est GFR ( Amer) 62 Glucose 160 H D POC Glucose 93 54 L Hemoglobin A1c Lactate Calcium 8.8 Magnesium 1.9 C-Reactive Protein 33.2 H 01/17/25 01/16/25 06:14 22:45 WBC RBC Hgb Hct MCV MCH MCHC RDW Plt Count MPV Neut % (Auto) Lymph % (Auto) [place] % (Auto) Eos % (Auto) Baso % (Auto) Neut # (Auto) Lymph # (Auto) [place] # (Auto) Eos # (Auto) Baso # (Auto) Total Counted Neutrophils % (Manual) Band Neutrophils % Lymphocytes % (Manual) Monocytes % (Manual) Platelet Estimate Poikilocytosis Anisocytosis Macrocytosis Spherocytes Target Cells ESR Sodium Potassium Chloride Carbon Dioxide Anion Gap BUN Creatinine Estimated Creat Clear Estimated GFR Est GFR ( Amer) Glucose POC Glucose 52 L Hemoglobin A1c 6.9 H Lactate Calcium Magnesium C-Reactive Protein Preliminary micro results at discharge 01/16/25 23:26 Blood Culture - Preliminary Blood NO GROWTH AFTER 24 HOURS 01/16/25 23:25 Blood Culture - Preliminary Blood NO GROWTH AFTER 24 HOURS DS: Diagnosis Discharge Diagnosis (1) Hypoglycemia: Status: Resolved Code(s): E16.2 - Hypoglycemia, unspecified (2) Sepsis: Status: Resolved Code(s): A41.9 - Sepsis, unspecified organism (3) Callus of foot: Status: Acute Code(s): L84 - Corns and callosities (4) Onychomycosis: Status: Acute Code(s): B35.1 - Tinea unguium (5) Diabetes type I: Status: Acute Code(s): E10.9 - Type 1 diabetes mellitus without complications Qualifiers: Diabetes mellitus complication status: without complication Qualified Code(s): E10.9 - Type 1 diabetes mellitus without complications (6) HLD (hyperlipidemia): Status: Acute Code(s): E78.5 - Hyperlipidemia, unspecified Qualifiers: Hyperlipidemia type: other hyperlipidemia Qualified Code(s): E78.49 - Other hyperlipidemia (7) HTN (hypertension): Status: Acute Code(s): I10 - Essential (primary) hypertension Qualifiers: Hypertension type: essential hypertension Qualified Code(s): I10 - Essential (primary) hypertension (8) Coronary artery disease: Status: Acute Code(s): I25.10 - Atherosclerotic heart disease of [place] coronary artery without angina pectoris Qualifiers: Associated angina: without angina Coronary Disease-Associated Artery/Lesion type: [place] artery [place] vs. transplanted heart: [place] heart Qualified Code(s): I25.10 - Atherosclerotic heart disease of [place] coronary artery without angina pectoris (9) Pulmonary emboli: Status: Acute Code(s): I26.99 - Other pulmonary embolism without acute cor pulmonale Qualifiers: Acute cor pulmonale presence: unspecified Chronicity: unspecified Pulmonary embolism type: unspecified Qualified Code(s): I26.99 - Other pulmonary embolism without acute cor pulmonale Meds Home Medications and Allergies Home Medications ?Medication ?Instructions ?Recorded ?Confirmed ?Type metoprolol succinate 100 mg 100 mg PO DAILY 01/26/21 01/16/25 History tablet,extended release 24 hr potassium chloride 20 mEq 20 meq PO TID 01/26/21 01/16/25 History tablet,extended release(part/cryst) rosuvastatin 40 mg tablet 40 mg PO HS 01/26/21 01/16/25 History furosemide 20 mg tablet 20 mg PO DAILY 12/21/22 01/16/25 History allopurinol 300 mg tablet 300 mg PO DAILY 10/14/24 01/16/25 History amlodipine 5 mg tablet 5 mg PO DAILY 10/15/24 01/16/25 History apixaban 5 mg tablet (Eliquis) 5 mg PO BID #30 tabs 10/15/24 01/16/25 Rx ascorbic acid (vitamin C) 500 mg 500 mg PO DAILY 10/15/24 01/16/25 History tablet cholecalciferol (vitamin D3) 100 100 mcg PO DAILY 10/15/24 01/16/25 History mcg (4,000 unit) tablet empagliflozin 10 mg tablet 10 mg PO DAILY 10/15/24 01/16/25 History ferrous gluconate 324 mg (38 mg 324 mg PO DAILY 10/15/24 01/16/25 History iron) tablet metolazone 5 mg tablet 5 mg PO DAILY 10/15/24 01/16/25 History triamterene 37.5 1 tab PO DAILY 10/15/24 01/16/25 History mg-hydrochlorothiazide 25 mg tablet valsartan 160 mg tablet 160 mg PO DAILY 10/15/24 01/16/25 History amoxicillin 875 mg-potassium 1 tab PO BID 3 days #6 tabs 01/18/25 Rx clavulanate 125 mg tablet insulin human U-100 NPH-regulr 12 unit (0.12 mL) SQ AM 30 days #0 01/18/25 01/16/25 Rx 70-30 mix 100 unit/mL subcutaneous mL susp (Humulin 70/30 U-100 Insulin) New Prescriptions to Start Prescriptions: amoxicillin-pot clavulanate Chato Alejandra Allergies Allergy/AdvReac Type Severity Reaction Status Date / Time No Known Allergies Allergy Unverified 10/15/24 07:22 Discharge Plan Disposition Patient Disposition: Home Health Service Condition: Fair Discharge Order Discharge Orders: Discharge Order (Routine); Ordered 01/18/25 Ordered By: Chato Alejandra Follow up Plan Follow up with: Provider,Korin, [Primary Care Provider] - Enter time for follow up (please follow up with [facility]) Nadia Flynn DPM [Staff Physician] - Enter time for follow up ([facility] needed from [facility] for appointment with Dr. Flynn) Prescriptions/Medication Reconciliation: New amoxicillin-pot clavulanate 875-125 mg tablet 1 tab PO BID 3 Days Qty: 6 0RF Continued metoprolol succinate 100 mg tablet extended release 24 hr 100 mg PO DAILY Patient Comments: TAKE 1 TABLET BY MOUTH EVERY DAY rosuvastatin 40 mg tablet 40 mg PO HS potassium chloride 20 mEq tablet,ER particles/crystals 20 meq PO TID allopurinol 300 mg tablet 300 mg PO DAILY Patient Comments: TAKE 1 TABLET BY MOUTH DAILY metolazone 5 mg Tablet 5 mg PO DAILY ascorbic acid (vitamin C) 500 mg Tablet 500 mg PO DAILY triamterene-hydrochlorothiazid 37.5-25 mg Tablet 1 tab PO DAILY valsartan 160 mg Tablet 160 mg PO DAILY ferrous gluconate 324 mg (38 mg iron) Tablet 324 mg PO DAILY empagliflozin 10 mg Tablet 10 mg PO DAILY cholecalciferol (vitamin D3) 100 mcg (4,000 unit) Tablet 100 mcg PO DAILY Eliquis 5 mg tablet 5 mg PO BID Qty: 30 1RF Rx Instructions: Take 10 mg twice a day for the next 6 days, then decrease to 5 mg twice a day. Changed Humulin 70/30 U-100 Insulin 100 unit/mL (70-30) suspension 12 unit SQ AM 30 Days Qty: 0 0RF Patient Comments: ADMINISTER 45 UNITS UNDER THE SKIN EVERY MORNING Held furosemide 20 mg tablet 20 mg PO DAILY Hold Instructions: Pending follow-up with PCP Patient Comments: TAKE 1 TABLET BY MOUTH EVERY DAY amlodipine 5 mg Tablet 5 mg PO DAILY Hold Instructions: Pending follow-up with PCP Problem Reconciliation Problems Reviewed?: Yes Patient Discharge Instructions ACTIVITY: Continue current activity DIET: continue same diet Patient Instructions: DI for Sepsis -- Adult Print Language: [place]ic Providers Primary Care Provider: Provider,Referral Admit Provider: Chato Alejandra Attending Provider: Chato Alejandra
[2025-01-18] MEDS: metOLazone 2.5MG TABLET 5 MG PO (09:57)
[2025-01-18] MEDS: ASCORBIC ACID 500MG TAB 500 MG PO (09:57)
[2025-01-18] MEDS: AMLODIPINE 5MG TABLET 5 MG PO (09:58)
[2025-01-18] MEDS: APIXABAN 5MG TABLET 5 MG PO (09:58)
[2025-01-18] MEDS: CHOLECALCIFEROL 1,000 UNITS (25MCG) TABLET 100 MCG PO (09:58)
[2025-01-18] MEDS: ALLOPURINOL 300MG TABLET 300 MG PO (09:58)
[2025-01-18] MEDS: METOPROLOL SUCCINATE XL 100MG TABLET 100 MG PO (09:58)
--- NOTE | 2025-01-18 11:05 | CARE MANAGER ---
Spoke with patient who questioned coming here care for follow up when all he has is [facility]. We discussed how sometimes a referral could be made and [facility] would cover it, but not always and someone in the office should check with [facility] regarding this before he comes to the appointment. I told him I would also reach out to [facility] today as it doesn't appear [facility] from the [facility]. I spoke with Suha at [facility] who states there is no bed availability. [facility] [place]
--- NOTE | 2025-01-18 11:13 | SW/DCPLANNER ---
I spoke w/ this patient regarding plans once medically stable for discharge. Per MD patient will need home health services for unaboots. Patient is agreeable to home health services and [facility]. I did explain to patient this process can unfortunately be lengthy and MD would discuss the process at home w/ unaboots (can stay on 3-5 days then use compression socks if waiting for services to still start). Patient is agreeable w/ this plan. I will fax information/order today. Patient will discharge home this afternoon.
[2025-01-18 12:00] VITALS: BP 133/69; PULSE 78; RESP 18; TEMP 36.8; O2SAT 98
[2025-01-18 12:08] LABS: POC Glucose,Bedside 172 (70-110)
[2025-01-18 12:10] LABS: C-Peptide <0.1 ng/mL (1.1-4.4)
--- NOTE | 2025-01-19 10:19 | SW/DCPLANNER ---
Spoke with patient on the phone. Patient stated that he is going well. Patient stated that he has to call this afternoon for his upcoming appointment time for his primary care provider. Patient stated that he was able to pick and shovel man his medicine from clinic pharmacy. Patient stated that he knew he is supposed to be getting home health. Patient stated that he has no concerns or questions at this time. [place]
== END 2025-01-18 14:08 | disposition home health service (06) ==
LOC: ER 01-17 00:15 → 2ND 01-17 01:06
PROVIDERS: Nurse Practitioner Family; Student in an Organized Health Care Education/Training Program; Admitting Provider Internal Medicine Adolescent Medicine; Emergency Provider Emergency Medicine; Visit Provider Internal Medicine Adolescent Medicine
DX: E10.649 Type 1 diabetes mellitus with hypoglycemia without coma (principal); R65.11 Systemic inflammatory response syndrome (SIRS) of non-infectious origin with acute organ dysfunction; T68.XXXA Hypothermia, initial encounter; E10.22 Type 1 diabetes mellitus with diabetic chronic kidney disease; I12.9 Hypertensive chronic kidney disease with stage 1 through stage 4 chronic kidney disease, or unspecified chronic kidney disease; N18.9 Chronic kidney disease, unspecified; M19.072 Primary osteoarthritis, left ankle and foot; M19.071 Primary osteoarthritis, right ankle and foot; E66.9 Obesity, unspecified; Z68.37 Body mass index [BMI] 37.0-37.9, adult; E78.5 Hyperlipidemia, unspecified; I65.02 Occlusion and stenosis of left vertebral artery; R41.82 Altered mental status, unspecified; D64.89 Other specified anemias; I89.0 Lymphedema, not elsewhere classified; N17.9 Acute kidney failure, unspecified; Z79.4 Long term (current) use of insulin; Z79.899 Other long term (current) drug therapy; Z86.31 Personal history of diabetic foot ulcer; Z86.711 Personal history of pulmonary embolism
CPT/HCPCS: G0127; 36415; 71045; 73630; 80048; 80053; 80320; 81001; 82962; 83036; 83605; 83735; 83880; 84443; 84681; 85007; 85025; 85027; 85651; 86140; 87040; 87633; 87636; 93005; 93923; 99291; G0378; G0480; J2543; J3372; J7120

== ENCOUNTER 2025-01-27 16:56 | Observation (INO) | payer OTHER, SELFPAY ==
[2025-01-27] VITALS (8 sets, daily range): BP systolic 116–140; BP diastolic 59–77; PULSE 71–87; RESP 17–29; TEMP 36.4–36.9; O2SAT 95–100; BMI 20.7
--- NOTE | 2025-01-27 17:29 | HMH.EDGENADL ---
Discharge Plan Disposition Patient Disposition: Admitted Condition: Good Clinical Impressions Clinical Impression: Type 1 diabetes mellitus with hyperglycemia, Pseudohyponatremia, MICHELLE (acute kidney injury) Urinary tract infectious disease Qualifiers: Urinary tract infection type: site unspecified Hematuria presence: with hematuria Qualified Code(s): N39.0 - Urinary tract infection, site not specified Discharge ED Provider: Palomo Bedoya General Adult HPI <WANDA Leos - Last Filed: 01/27/25 22:19> General Chief complaint: Hyper/Hypoglycemia Stated complaint: blood sugar checked Time Seen by Provider: 01/27/25 17:24 Mode of Arrival: Ambulatory Source of Information: Patient Description of Symptoms (Recalled from ER Triage Doc. by RN): Pt presents for evaluation of high blood sugar. Pt states his blood sugar was in the 500s History of Present Illness HPI narrative: Patient presents for evaluation of elevated blood sugar. Patient reports that he has been having high blood sugars today and the last 1 his monitor read as high . Patient was recently seen at our facility and admitted for a hypoglycemic episode on 01/17/2025. He was reportedly on Lantus previously and was changed to a different insulin regimen. Patient relates that he normally does not check his blood sugar despite being a lifelong type I diabetic. Otherwise patient denies any chest pain shortness of breath fever chills hemoptysis hematochezia melena nausea vomit diarrhea. Related Data Home Medications ?Medication ?Instructions ?Recorded ?Confirmed metoprolol succinate 100 mg 100 mg PO DAILY 01/26/21 01/16/25 tablet,extended release 24 hr potassium chloride 20 mEq 20 meq PO TID 01/26/21 01/16/25 tablet,extended release(part/cryst) rosuvastatin 40 mg tablet 40 mg PO HS 01/26/21 01/16/25 furosemide 20 mg tablet 20 mg PO DAILY 12/21/22 01/16/25 allopurinol 300 mg tablet 300 mg PO DAILY 10/14/24 01/16/25 amlodipine 5 mg tablet 5 mg PO DAILY 10/15/24 01/16/25 ascorbic acid (vitamin C) 500 mg 500 mg PO DAILY 10/15/24 01/16/25 tablet cholecalciferol (vitamin D3) 100 100 mcg PO DAILY 10/15/24 01/16/25 mcg (4,000 unit) tablet empagliflozin 10 mg tablet 10 mg PO DAILY 10/15/24 01/16/25 ferrous gluconate 324 mg (38 mg 324 mg PO DAILY 10/15/24 01/16/25 iron) tablet metolazone 5 mg tablet 5 mg PO DAILY 10/15/24 01/16/25 triamterene 37.5 1 tab PO DAILY 10/15/24 01/16/25 mg-hydrochlorothiazide 25 mg tablet valsartan 160 mg tablet 160 mg PO DAILY 10/15/24 01/16/25 Previous Rx's ?Medication ?Instructions ?Recorded apixaban 5 mg tablet (Eliquis) 5 mg PO BID #30 tabs 10/15/24 amoxicillin 875 mg-potassium 1 tab PO BID 3 days #6 tabs 01/18/25 clavulanate 125 mg tablet insulin human U-100 NPH-regulr 12 unit (0.12 mL) SQ AM 30 days #0 01/18/25 70-30 mix 100 unit/mL subcutaneous mL susp (Humulin 70/30 U-100 Insulin) Allergies Allergy/AdvReac Type Severity Reaction Status Date / Time No Known Allergies Allergy Unverified 10/15/24 07:22 REPLACED BY [facility] <WANDA Leos - Last Filed: 01/27/25 22:19> REPLACED BY [facility] Disclaimer: The information contained in this section may have been updated after the patient was seen, as this information can be updated by other users. Medical History Coronary artery disease Restless sleeper Daytime somnolence Dyspnea Diabetes type I HLD (hyperlipidemia) HTN (hypertension) Social History Smoking Status: Never smoker alcohol intake: current alcohol intake frequency: holidays/special occasions only substance use type: denies use current occupational status: employed and disabled Travel in the last 8 weeks: Inside the [place] Have you lived/traveled outside US in past 30 days?: No Contact w/someone who lives/traveled outside US past 30 days?: No Exposure to someone with infectious disease in past 14 days?: No Do you have a fever (greater than 100.4 F or 38 C)?: No Have you tested positive for COVID-19: No Exposed to someone with COVID-19 in past 14 days?: No Do you have a sore throat?: No Do you have a cough?: No Do you have any weakness?: No Do you have any diarrhea?: No Are you experiencing any unusual bleeding?: No Do you have any muscle aches/pain?: No Do you have any abdominal pain?: No Are you experiencing loss of taste or smell?: No Other Medical History Have you received the Flu Vaccine for this season: No Have you received the Pneumonia Vaccine: No <WANDA Leos - Last Filed: 01/27/25 22:19> ROS Obtained: Yes Systems reviewed as appropriate & no additional complaints except as documented Physical Exam <WANDA Leos - Last Filed: 01/27/25 22:19> General General appearance: alert and in no apparent distress Respiratory Respiratory exam: Present normal lung sounds bilaterally Cardiovascular Cardiovascular exam: Present regular rate Neurological Exam Neurological exam: Present alert and oriented X3 Medical Decision Making <WANDA Leos - Last Filed: 01/27/25 22:19> Medical Records Medical records reviewed: Yes I reviewed the patient's medical records. Screening: Per USPSTF and CDC recommendations, given the prevalence of disease in our region, it is our hospital?s policy to screen for HIV and viral Hepatitis for all patients aged 18 and over and those with ongoing risk factors. Jamel Inquiry Pt receiving controlled substance: No Vital Signs: 01/27/25 17:18 01/27/25 17:30 01/27/25 18:01 Temperature 97.9 F Temperature Source Oral Pulse Rate 87 77 Pulse Rate [Right] 85 Respiratory Rate 18 24 Blood Pressure 126/60 140/59 L Blood Pressure [Right Arm] 133/71 Blood Pressure Mean [Right Arm] 91 Blood Pressure Source Blood Pressure Source [Right Arm] Automatic Cuff Blood Pressure Position Blood Pressure Position [Right Arm] Sitting 02 Sat by Pulse Oximetry 100 99 100 Oxygen Delivery Method Room Air Room Air Room Air 01/27/25 18:31 01/27/25 19:00 01/27/25 19:30 Temperature Temperature Source Pulse Rate 71 75 81 Pulse Rate [Right] Respiratory Rate 18 27 H 29 H Blood Pressure 126/59 L 116/59 L 137/70 Blood Pressure [Right Arm] Blood Pressure Mean [Right Arm] Blood Pressure Source Blood Pressure Source [Right Arm] Blood Pressure Position Blood Pressure Position [Right Arm] 02 Sat by Pulse Oximetry 100 97 97 Oxygen Delivery Method Room Air 01/27/25 20:27 01/27/25 21:00 01/27/25 21:04 Temperature 98.4 F Temperature Source Oral Pulse Rate 81 Pulse Rate [Right] Respiratory Rate 20 Blood Pressure 137/70 Blood Pressure [Right Arm] Blood Pressure Mean [Right Arm] Blood Pressure Source Automatic Cuff Blood Pressure Source [Right Arm] Blood Pressure Position Sitting Blood Pressure Position [Right Arm] 02 Sat by Pulse Oximetry Oxygen Delivery Method Room Air Room Air Room Air Lab Data Lab results reviewed: Yes I reviewed the patient's lab results. Lab Results 01/27/25 17:25: Urine Color Yellow, Urine Appearance Clear, Urine pH 6.0, Ur Specific [place] 1.010, Urine Protein Negative, Urine Glucose (UA) >=1000, Urine Ketones Negative, Urine Blood Negative, Urine Nitrate Negative, Urine Bilirubin Negative, Urine Urobilinogen 0.2, Ur Leukocyte Esterase Negative, Urine RBC 5-10, Urine WBC 10-20, Ur Squamous Epith Cells 10-20, Urine Bacteria 1+, Urine Mucus 1+ 01/27/25 17:56: WBC 10.7, RBC 3.64 L, Hgb 11.8 L, Hct 34.9 L, MCV 95.9 H, MCH 32.4 H, MCHC 33.8, RDW 12.5, Plt Count 360, MPV 9.6, Neut % (Auto) 77.4, Lymph % (Auto) 12.9, [place] % (Auto) 7.9, Eos % (Auto) 1.2, Baso % (Auto) 0.3, Neut # (Auto) 8.3 H, Lymph # (Auto) 1.4, [place] # (Auto) 0.8, Eos # (Auto) 0.1, Baso # (Auto) 0.0, PT 10.1, INR 0.89 L, APTT 23.4, VBG pH 7.41, VBG pCO2 44.3, VBG pO2 53.5 H, VBG HCO3 27.2, VBG Total CO2 28.6 H, VBG O2 Saturation 87.9 H, VBG Base Excess 2.5 H, VBG Lactic Acid 1.8, Sodium 131 L, Potassium 4.2, Chloride 94 L, Carbon Dioxide 31 H, Anion Gap 10.2, BUN 30 H, Creatinine 1.70 H, Estimated Creat Clear 44, Estimated GFR 41 L, Est GFR ( Amer) 50 L, Glucose 469 H*, Hemoglobin A1c 8.5 H, Lactate 1.6, Calcium 9.2, Magnesium 2.0, Total Bilirubin 0.3, AST 27, ALT 29, Alkaline Phosphatase 161 H, Troponin I < 0.01, NT-Pro-B Natriuret Pep 121, Total Protein 6.6, Albumin 4.1, Globulin 2.5, Albumin/Globulin Ratio 1.6, Procalcitonin 0.220, Acetone Level None detected 01/27/25 17:56 01/27/25 17:56 Orders (Tests/Meds): ED MEDICATIONS Generic Name Dose Route Start Last Admin Trade Name Freq PRN Reason Stop Dose Admin Acetaminophen 650 mg 01/27/25 21:57 Acetaminophen 325mg Tab PO 02/26/25 21:56 Q4HP PRN Fever or Mild Pain (1-3) Enoxaparin Sodium 40 mg 01/28/25 09:00 Enoxaparin 40mg/0.4ml Syringe SUBCUT 02/27/25 08:59 DAILY HUANG Discontinued Medications Generic Name Dose Route Start Last Admin Trade Name Freq PRN Reason Stop Dose Admin Sodium Chloride 1,000 mls @ 999 mls/hr 01/27/25 17:32 01/27/25 18:24 Sod Chlor 0.9% 1000ml Bag IV 01/27/25 18:32 999 mls/hr .Q1H1M ONE Administration Sodium Chloride 1,000 mls @ 999 mls/hr 01/27/25 18:34 01/27/25 19:17 Sod Chlor 0.9% 1000ml Bag IV 01/27/25 19:34 999 mls/hr .Q1H1M ONE Administration Ceftriaxone Sodium 1 gm/ 50 mls @ 100 mls/hr 01/27/25 19:30 01/27/25 20:03 Sodium Chloride IV 01/27/25 19:59 100 mls/hr ONCE ONE Administration Insulin Human Regular 10 unit 01/27/25 18:34 01/27/25 18:45 Insulin Human Regular 100 Units/Ml 10ml Vial IVP 01/27/25 18:35 10 unit ONCE ONE Administration ORDERS Category Date Time Status Acetone, Serum (Rapid) Stat Lab 01/27/25 17:56 Completed Complete Blood Count Auto Diff Stat Lab 01/27/25 17:56 Completed Comprehensive Metabolic Panel Stat Lab 01/27/25 17:56 Completed Hemoglobin A1C Stat Lab 01/27/25 17:56 Completed Lactic Acid Stat Lab 01/27/25 17:56 Completed Magnesium Stat Lab 01/27/25 17:56 Completed NT Pro Brain Natriuretic Pep. Stat Lab 01/27/25 17:56 Completed PT INR [Prothrombin Time INR] Stat Lab 01/27/25 17:56 Completed PTT [Activated Partial Thrombo Time] Stat Lab 01/27/25 17:56 Completed Procalcitonin Stat Lab 01/27/25 17:56 Completed Troponin I Q3H Lab 01/27/25 21:04 Completed Troponin I Q3H Lab 01/27/25 23:45 Ordered Troponin I Stat Lab 01/27/25 17:56 Completed Urinalysis and Microscopic Stat Lab 01/27/25 17:25 Completed Blood Culture Stat Micro 01/27/25 17:56 Received Urine Culture Stat Micro 01/27/25 17:25 Received Venous Blood Gas Stat RT 01/27/25 17:56 Completed Medical Decision Narrative: In summary patient is a 64-year-old male who presents to the emergency department for evaluation of hyperglycemia. Patient is hemodynamically stable upon arrival, afebrile. Physical exam is remarkable for clear breath sounds with no increased work of breathing or adventitious sounds, no abdominal pain, patient had his bilateral lower extremities wrapped due to edema however upon taking down the wrapping there is no evidence of cellulitis induration or infection skin breakdown. The remainder of his physical exam is unremarkable and nonfocal. Differential diagnosis includes hyperglycemia due to inadequate insulin intake versus DKA versus possible occult infection etc. Initial workup will be conducted with hematologic labs urinalysis. Initial interventions include crystalloid bolus and will await spot glucose to address hyperglycemia. Initial workup reviewed by me and his white count is normal at 10.7 with absolute neutrophil count of 8.3, INR 0.89 VBG shows pH 7.41 with a VBG lactic acid 1.8 acetones undetectable chemistry however shows a sodium of 131 CO2 of 31 and anion gap of 10.2 BUN of 30 a creatinine 1.7 with a GFR 41 serum glucose was 469 hemoglobin A1c is 8.5 troponin is undetectable at less than 0.01 and procalcitonin is 0.220 and urinalysis shows 5-10 red blood cells 10-20 white cells 10-20 squamous epithelial cells 1+ bacteria.. Upon repeat evaluation given the patient 10 units of IV push insulin and a gram of Rocephin given the bacteriuria even though he is asymptomatic. Repeat blood sugar was still over 300 after 10 units IV push an hour later. Given this had interactive discussion with hospital medicine regarding patient WRIGHT presentation and management and he will be admitted for further evaluation and care. [facility] and recommended the patient be admitted here. <Palomo Bedoya MD - Last Filed: 01/27/25 22:45> Vital Signs: 01/27/25 17:18 01/27/25 17:30 01/27/25 18:01 Temperature 97.9 F Temperature Source Oral Pulse Rate 87 77 Pulse Rate [Right] 85 Respiratory Rate 18 24 Blood Pressure 126/60 140/59 L Blood Pressure [Right Arm] 133/71 Blood Pressure Mean [Right Arm] 91 Blood Pressure Source Blood Pressure Source [Right Arm] Automatic Cuff Blood Pressure Position Blood Pressure Position [Right Arm] Sitting 02 Sat by Pulse Oximetry 100 99 100 Oxygen Delivery Method Room Air Room Air Room Air 01/27/25 18:31 01/27/25 19:00 01/27/25 19:30 Temperature Temperature Source Pulse Rate 71 75 81 Pulse Rate [Right] Respiratory Rate 18 27 H 29 H Blood Pressure 126/59 L 116/59 L 137/70 Blood Pressure [Right Arm] Blood Pressure Mean [Right Arm] Blood Pressure Source Blood Pressure Source [Right Arm] Blood Pressure Position Blood Pressure Position [Right Arm] 02 Sat by Pulse Oximetry 100 97 97 Oxygen Delivery Method Room Air 01/27/25 20:27 01/27/25 21:00 01/27/25 21:04 Temperature 98.4 F Temperature Source Oral Pulse Rate 81 Pulse Rate [Right] Respiratory Rate 20 Blood Pressure 137/70 Blood Pressure [Right Arm] Blood Pressure Mean [Right Arm] Blood Pressure Source Automatic Cuff Blood Pressure Source [Right Arm] Blood Pressure Position Sitting Blood Pressure Position [Right Arm] 02 Sat by Pulse Oximetry Oxygen Delivery Method Room Air Room Air Room Air Lab Data Lab Results 01/27/25 17:25: Urine Color Yellow, Urine Appearance Clear, Urine pH 6.0, Ur Specific [place] 1.010, Urine Protein Negative, Urine Glucose (UA) >=1000, Urine Ketones Negative, Urine Blood Negative, Urine Nitrate Negative, Urine Bilirubin Negative, Urine Urobilinogen 0.2, Ur Leukocyte Esterase Negative, Urine RBC 5-10, Urine WBC 10-20, Ur Squamous Epith Cells 10-20, Urine Bacteria 1+, Urine Mucus 1+ 01/27/25 17:56: WBC 10.7, RBC 3.64 L, Hgb 11.8 L, Hct 34.9 L, MCV 95.9 H, MCH 32.4 H, MCHC 33.8, RDW 12.5, Plt Count 360, MPV 9.6, Neut % (Auto) 77.4, Lymph % (Auto) 12.9, [place] % (Auto) 7.9, Eos % (Auto) 1.2, Baso % (Auto) 0.3, Neut # (Auto) 8.3 H, Lymph # (Auto) 1.4, [place] # (Auto) 0.8, Eos # (Auto) 0.1, Baso # (Auto) 0.0, PT 10.1, INR 0.89 L, APTT 23.4, VBG pH 7.41, VBG pCO2 44.3, VBG pO2 53.5 H, VBG HCO3 27.2, VBG Total CO2 28.6 H, VBG O2 Saturation 87.9 H, VBG Base Excess 2.5 H, VBG Lactic Acid 1.8, Sodium 131 L, Potassium 4.2, Chloride 94 L, Carbon Dioxide 31 H, Anion Gap 10.2, BUN 30 H, Creatinine 1.70 H, Estimated Creat Clear 44, Estimated GFR 41 L, Est GFR ( Amer) 50 L, Glucose 469 H*, Hemoglobin A1c 8.5 H, Lactate 1.6, Calcium 9.2, Magnesium 2.0, Total Bilirubin 0.3, AST 27, ALT 29, Alkaline Phosphatase 161 H, Troponin I < 0.01, NT-Pro-B Natriuret Pep 121, Total Protein 6.6, Albumin 4.1, Globulin 2.5, Albumin/Globulin Ratio 1.6, Procalcitonin 0.220, Acetone Level None detected Orders (Tests/Meds): ED MEDICATIONS Generic Name Dose Route Start Last Admin Trade Name Freq PRN Reason Stop Dose Admin Acetaminophen 650 mg 01/27/25 21:57 Acetaminophen 325mg Tab PO 02/26/25 21:56 Q4HP PRN Fever or Mild Pain (1-3) Enoxaparin Sodium 40 mg 01/28/25 09:00 Enoxaparin 40mg/0.4ml Syringe SUBCUT 02/27/25 08:59 DAILY HUANG Discontinued Medications Generic Name Dose Route Start Last Admin Trade Name Freq PRN Reason Stop Dose Admin Sodium Chloride 1,000 mls @ 999 mls/hr 01/27/25 17:32 01/27/25 18:24 Sod Chlor 0.9% 1000ml Bag IV 01/27/25 18:32 999 mls/hr .Q1H1M ONE Administration Sodium Chloride 1,000 mls @ 999 mls/hr 01/27/25 18:34 01/27/25 19:17 Sod Chlor 0.9% 1000ml Bag IV 01/27/25 19:34 999 mls/hr .Q1H1M ONE Administration Ceftriaxone Sodium 1 gm/ 50 mls @ 100 mls/hr 01/27/25 19:30 01/27/25 20:03 Sodium Chloride IV 01/27/25 19:59 100 mls/hr ONCE ONE Administration Insulin Human Regular 10 unit 01/27/25 18:34 01/27/25 18:45 Insulin Human Regular 100 Units/Ml 10ml Vial IVP 01/27/25 18:35 10 unit ONCE ONE Administration ORDERS Category Date Time Status Acetone, Serum (Rapid) Stat Lab 01/27/25 17:56 Completed Complete Blood Count Auto Diff Stat Lab 01/27/25 17:56 Completed Comprehensive Metabolic Panel Stat Lab 01/27/25 17:56 Completed Hemoglobin A1C Stat Lab 01/27/25 17:56 Completed Lactic Acid Stat Lab 01/27/25 17:56 Completed Magnesium Stat Lab 01/27/25 17:56 Completed NT Pro Brain Natriuretic Pep. Stat Lab 01/27/25 17:56 Completed PT INR [Prothrombin Time INR] Stat Lab 01/27/25 17:56 Completed PTT [Activated Partial Thrombo Time] Stat Lab 01/27/25 17:56 Completed Procalcitonin Stat Lab 01/27/25 17:56 Completed Troponin I Q3H Lab 01/27/25 21:04 Completed Troponin I Q3H Lab 01/27/25 23:45 Ordered Troponin I Stat Lab 01/27/25 17:56 Completed Urinalysis and Microscopic Stat Lab 01/27/25 17:25 Completed Blood Culture Stat Micro 01/27/25 17:56 Received Urine Culture Stat Micro 01/27/25 17:25 Received Venous Blood Gas Stat RT 01/27/25 17:56 Completed ECG Data Tracing #1: I reviewed this ECG and interpreted as documented below: (1733: Sinus rhythm 80 bpm with NV 166, QRS 94, QTc 404. Normal axis. No acute ischemic change.) Medical Decision Narrative: In summary patient is a 64-year-old male who presents to the emergency department for evaluation of hyperglycemia. Patient is hemodynamically stable upon arrival, afebrile. Physical exam is remarkable for clear breath sounds with no increased work of breathing or adventitious sounds, no abdominal pain, patient had his bilateral lower extremities wrapped due to edema however upon taking down the wrapping there is no evidence of cellulitis induration or infection skin breakdown. The remainder of his physical exam is unremarkable and nonfocal. Differential diagnosis includes hyperglycemia due to inadequate insulin intake versus DKA versus possible occult infection etc. Initial workup will be conducted with hematologic labs urinalysis. Initial interventions include crystalloid bolus and will await spot glucose to address hyperglycemia. Initial workup reviewed by me and his white count is normal at 10.7 with absolute neutrophil count of 8.3, INR 0.89 VBG shows pH 7.41 with a VBG lactic acid 1.8 acetones undetectable chemistry however shows a sodium of 131 CO2 of 31 and anion gap of 10.2 BUN of 30 a creatinine 1.7 with a GFR 41 serum glucose was 469 hemoglobin A1c is 8.5 troponin is undetectable at less than 0.01 and procalcitonin is 0.220 and urinalysis shows 5-10 red blood cells 10-20 white cells 10-20 squamous epithelial cells 1+ bacteria.. Upon repeat evaluation given the patient 10 units of IV push insulin and a gram of Rocephin given the bacteriuria even though he is asymptomatic. Repeat blood sugar was still over 300 after 10 units IV push an hour later. Given this had interactive discussion with hospital medicine regarding patient WRIGHT presentation and management and he will be admitted for further evaluation and care. Of note [facility] and [facility] and recommended the patient be admitted here. I was consulted by the NANCY, and we discussed the complexity of the problems being addressed. I approved the treatment and management plan for this patient's care in the Emergency Department, thus performing a substantive portion of the medical decision making. Palomo Bedoya MD Critical Care <WANDA Leos - Last Filed: 01/27/25 22:19> Critical Care Time Critical Care Time: Yes Attestation: On 01/27/25, the high probability of a clinically significant, sudden or life threatening deterioration of the following system(s) required my full and direct attention, intervention and personal management. The time I documented below is in addition to time spent performing reported procedures but includes the following listed in this critical care notation. Total Time Total Critical Care Time: 35
--- NOTE | 2025-01-27 17:33 | ECG_ITS ---
APPROVED REPORT Exam: Resting ECG HR:80 bpm ECG Measurements Heart Rate 80 AXES [place] 166 P 59 QRSd 94 QRS 14 QT 368 T 21 QTc 404 Conclusion Sinus rhythm Electronically signed by : JOSH RODRIGUEZ, 01/27/2025 21:20:26
[2025-01-27 17:37] LABS: Microscopic, Urine URINE MICROSCOPIC (MICROSCOPIC)
[2025-01-27 17:40] LABS: Appearance,Urine CLEAR (Clear); Bilirubin,Urine Negative (Negative); Blood, Urine Negative (Negative); Color,Urine YELLOW (Yellow); Glucose,Urine (UA) >=1000 (Negative); Ketones,Urine Negative (Negative); Leukocyte Esterase,Urine Negative (Negative); Nitrate,Urine Negative (Negative); Protein,Urine Negative (Negative); Urobilinogen,Urine 0.2 EU/dl (0.2)
--- NOTE | 2025-01-27 17:56 | PC.NURSE ---
[place] in respiratory aware of vbg
[2025-01-27 18:05] LABS: Lactate Venous 1.8 mmol/L (0.4-2.0); VBG Base Excess 2.5 mmol/L (-2.4-2.3); VBG HCO3 27.2 mmol/L (23-30); VBG Oxygen Saturation 87.9 % (50-70); VBG PCO2 44.3 mmol/L (35-51); VBG PH 7.41 mmol/L (7.31-7.41); VBG PO2 53.5 mmol/L (28-40); VBG Total CO2 28.6 mmol/L (23-27)
[2025-01-27 18:09] LABS: Basophils % 0.3 % (0.1-2.0); Eosinophils # 0.1 K/mm3 (0.0-0.4); Eosinophils % 1.2 % (0.1-12.0); Hematocrit 34.9 % (42.0-52.0); Hemoglobin 11.8 g/dL (14.1-18.0); Lymphocytes # 1.4 K/mm3 (0.7-4.5); Lymphocytes % 12.9 % (10-50); Mean Corpuscular HGB Conc 33.8 g/dL (31.8-35.4); Mean Corpuscular Hemoglobin 32.4 pg (27.0-31.2); Mean Corpuscular Volume 95.9 fl (80-94); Mean Platelet Volume 9.6 fl (7.4-10.4); Monocytes # 0.8 K/mm3 (0.1-1.0); Monocytes % 7.9 % (1.7-9.3); Neutrophils # 8.3 K/mm3 (1.8-7.8); Neutrophils % 77.4 % (37.0-80.0); Platelet Count 360 K/mm3 (142-424); Red Blood Count 3.64 M/mm3 (4.60-6.20); Red Cell Distribution Width 12.5 % (11.5-17.5); White Blood Count 10.7 K/mm3 (4.8-10.8)
[2025-01-27 18:16] LABS: Albumin Level 4.1 g/dl (3.5-5.0); Chloride 94 mmol/L (98-107); Potassium 4.2 mmoL/L (3.5-5.1); Sodium 131 mmol/L (136-145)
[2025-01-27 18:19] LABS: Activated Partial Thrombo Time 23.4 seconds (22.8-30.6); Alanine Aminotransferase 29 U/L (12-78); Albumin/Globulin Ratio 1.6 (1.1-1.8); Alkaline Phosphatase 161 U/L (38-126); Anion Gap 10.2 mEq/L (5-15); Aspartate Amino Transferase 27 U/L (17-59); Bilirubin,Total 0.3 mg/dl (0.2-1.3); Blood Urea Nitrogen 30 mg/dl (9-20); Carbon Dioxide 31 mmol/L (22.0-30.0); Creatinine Clearance Estimated 44 mL/min (50-200); Estimated Glomerular Filt Rate 41 ml/min (>60); GFR (African American) 50 ML/MIN (>60); Globulin 2.5 g/dL (1.3-3.2); Total Protein,Serum 6.6 g/dl (6.3-8.2)
[2025-01-27 18:20] LABS: Calcium 9.2 mg/dl (8.4-10.2); INR 0.89 (0.9-1.1); Lactic Acid 1.6 mmol/L (0.7-2.1); Prothrombin Time 10.1 seconds (10.1-12.5)
[2025-01-27] MEDS: 0.9 % SODIUM CHLORIDE 1000ML 1,000 ML 999 ML IV ×2 (18:24→19:17)
[2025-01-27 18:26] LABS: Glucose 469 mg/dl (74-100)
[2025-01-27 18:29] LABS: NT Pro Brain Natriuretic Pep. 121 pg/mL (0-125)
[2025-01-27 18:32] LABS: Troponin I < 0.01 ng/ml (0.00-0.034)
[2025-01-27] MEDS: INSULIN HUMAN REGULAR 100 UNITS/ML 10ML VIAL 10 UNIT IVP (18:45)
[2025-01-27 19:01] LABS: Hemoglobin A1C 8.5 % (4.0-6.0)
[2025-01-27 19:03] LABS: Acetone, Serum (Rapid) None Detected (None Detect)
[2025-01-27 19:03] LABS: Bacteria,Urine 1+ /lpf; Mucus,Urine 1+ /lpf
--- NOTE | 2025-01-27 19:18 | PC.NURSE ---
FSBS @ 354 mg/dl
[2025-01-27] MEDS: CEFTRIAXONE 1 GM 1 GM in 0.9 % SODIUM CHLORIDE 50 ML IV (20:03)
--- NOTE | 2025-01-27 21:11 | PC.NURSE ---
Patient arrived to floor via wheelchair from ED at 21:09.
--- NOTE | 2025-01-27 21:54 | PC.NURSE ---
Called [facility], compliance coordinator said that they were on deferment for 4-5 hours and said we ([facility]) could admit pt. Said they would call back within the 4-5 hours to check on pt.
[2025-01-27 21:55] LABS: Troponin I < 0.01 ng/ml (0.00-0.034)
[2025-01-28] VITALS: BP 134/71; PULSE 75; RESP 18; TEMP 36.7; O2SAT 99
[2025-01-28 00:40] LABS: POC Glucose,Bedside 257 (70-110)
[2025-01-28 01:19] LABS: Troponin I < 0.01 ng/ml (0.00-0.034)
[2025-01-28 04:00] VITALS: BMI 35.7
--- NOTE | 2025-01-28 04:40 | PC.NURSE ---
New Admit. pt
--- NOTE | 2025-01-28 04:41 | PC.NURSE ---
Addendum entered by Savannah Blakely RN 01/28/25 04:43: V/s, ox4. Blood glucose monitored. Plan of care ongoing. Original Note: New Admit. Pt was discharged last week from 2nd floor, and now back with hyperglycemia.
[2025-01-28 05:45] LABS: POC Glucose,Bedside 345 (70-110)
[2025-01-28] MEDS: humaLOG 100 UNITS/ML 10ML VIAL (SSI) SUBCUT ×2 (05:48→12:02)
--- NOTE | 2025-01-28 06:51 | P.HP_ITS ---
<Statement entered by Chato Alejandra MD - 01/29/25 00:16> Rounded on patient after nurse practitioner. Personally examined and interviewed patient. Agree with exam findings and care plan as documented. Will make adjustments to home insulin regimen. Increase to twice daily with meals. Glucose improving by morning. Was sent in by his home health nurse due to high glucose. Patient states he was feeling well however. Monitor for improvement in kidney function with repeat CBC, CMP, magnesium ordered for the morning. Does have slight MICHELLE with creatinine of 1.9 History of Present Illness *Admission Date: 01/27/25 *Reason for visit:: Significant hyperglycemia *History of present illness: This 64-year-old [employer] comes to the emergency department for evaluation of hyperglycemia with sugars greater than 600. Patient is stable but found that both of his lower extremities have been red for pressure dressing for edema to lower extremities related to his diabetes are peripheral vascular disease. Test from 310 results are in the medical record showed no significant venous stasis are occlusions. Patient is noted for recently being in the hospital having his insulin decreased from approximately 40 units down to 12. Patient was given an IV bolus but with the uncontrolled blood sugar and not being able to adjust the insulin at this time patient was going to be transferred to the [facility] the [facility] was contacted and the [facility] was on divert and recommended that the patient be admitted here [facility] Disclaimer: The information contained in this section may have been updated after the patient was seen, as this information can be updated by other users. Medical History Coronary artery disease Restless sleeper Daytime somnolence Dyspnea Diabetes type I HLD (hyperlipidemia) HTN (hypertension) Social History Smoking Status: Never smoker alcohol intake: current alcohol intake frequency: holidays/special occasions only substance use type: denies use current occupational status: employed and disabled Travel in the last 8 weeks: Inside the [place] Have you lived/traveled outside US in past 30 days?: No Contact w/someone who lives/traveled outside US past 30 days?: No Exposure to someone with infectious disease in past 14 days?: No Do you have a fever (greater than 100.4 F or 38 C)?: No Have you tested positive for COVID-19: No Exposed to someone with COVID-19 in past 14 days?: No Do you have a sore throat?: No Do you have a cough?: No Do you have any weakness?: No Do you have any diarrhea?: No Are you experiencing any unusual bleeding?: No Do you have any muscle aches/pain?: No Do you have any abdominal pain?: No Are you experiencing loss of taste or smell?: No Other Medical History Have you received the Flu Vaccine for this season: Yes Have you received the Pneumonia Vaccine: No Review of Systems Review of Systems Review of systems:: pertinent systems reviewed and negative unless documented below Constitutional Constitutional: Reports as per HPI Eyes Eyes: Reports as per HPI ENT Ears, Nose, Mouth, and Throat: Reports as per HPI *Cardiovascular Cardiovascular: Reports as per HPI *Respiratory Respiratory: Reports as per HPI *Gastrointestinal Gastrointestinal: Reports as per HPI *Genitourinary Genitourinary: Reports as per HPI *Musculoskeletal Musculoskeletal: Reports as per HPI Comments: Noting that his legs were wrapped when he arrived here, they were taken down in the emergency room showing that the patient does have some chronic edema. But there was no signs of any skin breakdown and there was positive pulse Integumentary/Breasts Skin/Breast: Reports as per HPI *Neurologic Neurologic: Reports as per HPI Psychiatric Psychiatric: Reports as per HPI Endocrine Endocrine: Reports as per HPI Hematologic/Lymphatic Hematologic/Lymphatic: Reports as per HPI Allergic/Immunologic Allergic/Immunologic: Reports as per HPI Meds Home Medications and Allergies Home Medications ?Medication ?Instructions ?Recorded ?Confirmed ?Type metoprolol succinate 100 mg 100 mg PO DAILY 01/26/21 01/27/25 History tablet,extended release 24 hr potassium chloride 20 mEq 20 meq PO TID 01/26/21 01/27/25 History tablet,extended release(part/cryst) rosuvastatin 40 mg tablet 40 mg PO HS 01/26/21 01/27/25 History furosemide 20 mg tablet 20 mg PO DAILY 12/21/22 01/27/25 History allopurinol 300 mg tablet 300 mg PO DAILY 10/14/24 01/27/25 History amlodipine 5 mg tablet 5 mg PO DAILY 10/15/24 01/27/25 History apixaban 5 mg tablet (Eliquis) 5 mg PO BID #30 tabs 10/15/24 01/27/25 Rx ascorbic acid (vitamin C) 500 mg 500 mg PO DAILY 10/15/24 01/27/25 History tablet cholecalciferol (vitamin D3) 100 100 mcg PO DAILY 10/15/24 01/27/25 History mcg (4,000 unit) tablet empagliflozin 10 mg tablet 10 mg PO DAILY 10/15/24 01/27/25 History ferrous gluconate 324 mg (38 mg 324 mg PO DAILY 10/15/24 01/27/25 History iron) tablet metolazone 5 mg tablet 5 mg PO DAILY 10/15/24 01/27/25 History triamterene 37.5 1 tab PO DAILY 10/15/24 01/27/25 History mg-hydrochlorothiazide 25 mg tablet valsartan 160 mg tablet 160 mg PO DAILY 10/15/24 01/27/25 History amoxicillin 875 mg-potassium 1 tab PO BID 3 days #6 tabs 01/18/25 01/27/25 Rx clavulanate 125 mg tablet insulin human U-100 NPH-regulr 12 unit (0.12 mL) SQ AM 30 days #0 01/18/25 01/27/25 Rx 70-30 mix 100 unit/mL subcutaneous mL susp (Humulin 70/30 U-100 Insulin) New Prescriptions to Start Prescriptions: Allergies Allergy/AdvReac Type Severity Reaction Status Date / Time No Known Allergies Allergy Unverified 10/15/24 07:22 Exam Data for Last 24 hours Vital signs and Labs for Last 24 Hours: Temp Pulse Resp BP Pulse Ox O2 Del Method 98.1 F 75 18 134/71 99 Room Air 01/28/25 00:00 01/28/25 00:00 01/28/25 00:00 01/28/25 00:00 01/28/25 00:00 01/28/25 06:14 Laboratory Results - last 24 hr 01/27/25 17:25: Urine Color Yellow, Urine Appearance Clear, Urine pH 6.0, Ur Specific [place] 1.010, Urine Protein Negative, Urine Glucose (UA) >=1000, Urine Ketones Negative, Urine Blood Negative, Urine Nitrate Negative, Urine Bilirubin Negative, Urine Urobilinogen 0.2, Ur Leukocyte Esterase Negative, Urine RBC 5- 10, Urine WBC 10-20, Ur Squamous Epith Cells 10-20, Urine Bacteria 1+, Urine Mucus 1+ 01/27/25 17:56: WBC 10.7, RBC 3.64 L, Hgb 11.8 L, Hct 34.9 L, MCV 95.9 H, MCH 32.4 H, MCHC 33.8, RDW 12.5, Plt Count 360, MPV 9.6, Neut % (Auto) 77.4, Lymph % (Auto) 12.9, [place] % (Auto) 7.9, Eos % (Auto) 1.2, Baso % (Auto) 0.3, Neut # (Auto) 8.3 H, Lymph # (Auto) 1.4, [place] # (Auto) 0.8, Eos # (Auto) 0.1, Baso # (Auto) 0.0, PT 10.1, INR 0.89 L, APTT 23.4, VBG pH 7.41, VBG pCO2 44.3, VBG pO2 53.5 H, VBG HCO3 27.2, VBG Total CO2 28.6 H, VBG O2 Saturation 87.9 H, VBG Base Excess 2.5 H, VBG Lactic Acid 1.8, Sodium 131 L, Potassium 4.2, Chloride 94 L, Carbon Dioxide 31 H, Anion Gap 10.2, BUN 30 H, Creatinine 1.70 H, Estimated Cre at Clear 44, Estimated GFR 41 L, Est GFR ( Amer) 50 L, Glucose 469 H*, Hemoglobin A1c 8.5 H, Lactate 1.6, Calcium 9.2, Magnesium 2.0, Total Bilirubin 0.3, AST 27, ALT 29, Alkaline Phosphatase 161 H, Troponin I < 0.01, NT-Pro-B Natriuret Pep 121, Total Protein 6.6, Albumin 4.1, Globulin 2.5, Albumin/Globulin Ratio 1.6, Procalcitonin 0.220, Acetone Level None detected 01/27/25 21:04: Troponin I < 0.01 01/28/25 00:08: Troponin I < 0.01 01/28/25 00:33: POC Glucose 257 H 01/28/25 05:38: POC Glucose 345 H* I & O for Last 24 hours: Intake & Output 01/26/25 01/27/25 01/28/25 01/29/25 05:59 05:59 05:59 05:59 Intake Total 120 / 120 Output Total 0 / 0 0 / 0 Balance 120 / 120 0 / 0 Weight 264 lb 3 oz Constitutional Constitutional: no acute distress *Routine HEENT Exam Head: Present normocephalic and atraumatic Eye: Present EOMI, PERRL and normal accommodation ENT: Present mucous membranes moist Comments: Patient reports no vision changes with a high sugar *Routine Neck Exam Neck: Present supple and full ROM Routine Chest/Breast/Axilla Exam Comments: No tenderness or decreased range of motion or trauma was noted and patient able to take deep breath bilateral *Routine Respiratory Exam Respiratory: Present CTA bilaterally, normal respiratory effort, able to speak in complete sentences and symmetric chest movement *Routine Cardiovascular Exam Cardiovascular: Present RRR, Normal S1 and Normal S2 *Routine Abdominal Exam Abdominal: Present soft, normoactive bowel sounds and obese Comments: No tenderness found on exam *Routine Rectal Exam Rectal:: deferred *Routine Genitalia Exam Genitalia:: deferred *Routine Extremities Exam Extremities: Present edema Comments: Noting that both lower extremities show some chronic edema but it is not pitting. There is normal temperature to both lower extremities brisk capillary refill and pulse patient also has feeling to both lower extreme Routine Back/Spine/Pelvis Exam Back/Spine: Present full ROM Comments: Patient able to stand walk without any difficulty. *Routine Skin Exam Skin: Present intact, warm and normal turgor Comments: No skin breakdown was noted the wraps for the lower extremities were removed in the emergency room due to the chronic edema but there was no signs of skin breakdown *Routine Neurological Exam Neurological: Present alert, oriented X3, CN II-XII intact, moving all extremities, normal tone, vision grossly intact, hearing grossly intact and normal speech Comments: There was no significant neurologic deficits found Routine Psychiatric Exam Psychiatric: Present normal affect, normal thought process and cooperative H&P: Result Impressions Diabetes mellitus poorly controlled with change in medication Lower extremity edema without compromise of circulation Assessment and Plan *Assessment and plan (1) Type 1 diabetes mellitus with hyperglycemia: Status: Acute Category: Medical Code(s): E10.65 - Type 1 diabetes mellitus with hyperglycemia (2) Edema of both feet: Status: Acute Category: Medical Code(s): R60.0 - Localized edema (3) Hyperglycemia: Status: Acute Category: Medical Code(s): R73.9 - Hyperglycemia, unspecified Plan 1. The [facility] was on divert so we will admit the patient here., Patient's insulin regime was recently changed and blood sugars are now uncontrolled greater than 600. Plan at this time we will admit the patient just regular insulin question that may be 20 units in the a.m. 20 units in the p.m. may adjust his blood sugars without lowering them too much. Patient was just in the hospital a short time ago and his insulin was decreased at that time. Since then his blood sugars have been out of control. Presently he is stable without any difficulty have him on fingerstick blood sugars and sliding scales until we are able to adjust his longer acting medication I believe he is on 7030 at the house.
[2025-01-28 07:48] LABS: Basophils # 0.1 K/mm3 (0-0.2); Basophils % 0.5 % (0.1-2.0); Eosinophils # 0.2 K/mm3 (0.0-0.4); Hematocrit 35.9 % (42.0-52.0); Hemoglobin 12.1 g/dL (14.1-18.0); Lymphocytes # 1.5 K/mm3 (0.7-4.5); Lymphocytes % 14.2 % (10-50); Mean Corpuscular HGB Conc 33.7 g/dL (31.8-35.4); Mean Corpuscular Hemoglobin 32.4 pg (27.0-31.2); Mean Corpuscular Volume 96.2 fl (80-94); Mean Platelet Volume 9.6 fl (7.4-10.4); Monocytes # 0.7 K/mm3 (0.1-1.0); Monocytes % 6.9 % (1.7-9.3); Neutrophils # 7.8 K/mm3 (1.8-7.8); Neutrophils % 75.9 % (37.0-80.0); Platelet Count 340 K/mm3 (142-424); Red Blood Count 3.73 M/mm3 (4.60-6.20); Red Cell Distribution Width 12.2 % (11.5-17.5); White Blood Count 10.3 K/mm3 (4.8-10.8)
[2025-01-28 08:00] VITALS: BP 117/62; PULSE 75; RESP 16; TEMP 36.6; O2SAT 97
[2025-01-28 08:16] LABS: Alanine Aminotransferase 31 U/L (12-78); Albumin/Globulin Ratio 1.5 (1.1-1.8); Alkaline Phosphatase 100 U/L (38-126); Anion Gap 9.8 mEq/L (5-15); Aspartate Amino Transferase 34 U/L (17-59); Bilirubin,Total 0.4 mg/dl (0.2-1.3); Blood Urea Nitrogen 25 mg/dl (9-20); Calcium 9.9 mg/dl (8.4-10.2); Carbon Dioxide 28 mmol/L (22.0-30.0); Chloride 102 mmol/L (98-107); Creatinine Clearance Estimated 99 mL/min (50-200); Estimated Glomerular Filt Rate 56 ml/min (>60); GFR (African American) 67 ML/MIN (>60); Globulin 2.7 g/dL (1.3-3.2); Glucose 297 mg/dl (74-100); Magnesium 2.3 mg/dl (1.6-2.3); Potassium 3.8 mmoL/L (3.5-5.1); Sodium 136 mmol/L (136-145); Total Protein,Serum 6.7 g/dl (6.3-8.2)
[2025-01-28] MEDS: ENOXAPARIN 40MG/0.4ML SYRINGE 40 MG SUBCUT (09:32)
[2025-01-28] MEDS: humaLOG MIX 75/25 3ML FLEXPEN 20 UNIT SUBCUT (09:33)
--- NOTE | 2025-01-28 09:52 | HMH.PHAINT1 ---
Pharmacy Intervention Comments: VERIFIED HOME MEDICATION LIST USING LIST FROM THE [facility]
[2025-01-28 11:43] LABS: POC Glucose,Bedside 261 (70-110)
--- NOTE | 2025-01-28 11:43 | P.DS_ITS ---
General Admission date:: 01/27/25 Discharge date: 01/28/25 HPI HPI HPI: This 64-year-old [employer] comes to the emergency department for evaluation of hyperglycemia with sugars greater than 600. Patient is stable but found that both of his lower extremities have been red for pressure dressing for edema to lower extremities related to his diabetes are peripheral vascular disease. Test from 310 results are in the medical record showed no significant venous stasis are occlusions. Patient is noted for recently being in the hospital having his insulin decreased from approximately 40 units down to 12. Patient was given an IV bolus but with the uncontrolled blood sugar and not being able to adjust the insulin at this time patient was going to be transferred to the [facility] was contacted and the [facility] was on divert and recommended that the patient be admitted here Hospital Course Hospital Course Hospital Course: 64-year-old male with multiple comorbidities including diabetes, PE history, lower extremity edema, chronic lymphedema, who presents with hyperglycemia. Was just recently admitted and adjustments made to his diabetes regimen. Was seen for the first time by home health, 9 days after last admission. Unfortunately his not had any follow-up with his primary care to make further adjustments as an outpatient to his diabetes regimen. Therefore developed hyperglycemia and came in for adjustment. Admitted overnight. Diabetes regimen adjusted and showing good response. Stable to discharge home to resume home health. Patient states he is feeling overall very well. Problems addressed as follows: #Type 2 diabetes -Hemoglobin A1c has been checked multiple times in the past 3 months. Earlier this month it was 6.8. Morning glucose on day of discharge A little over 200. As he was recently admitted for hypoglycemia, insulin had been decreased to 12 units just once daily. Given his hyperglycemia, we will make further adjustment to his regimen and increase to 20 units twice daily. Tolerated higher insulin regimen during this admission without hypoglycemia. Patient overall feeling well. On regimen and need to follow-up with PCP soon. Counseled him as well that if he has any issues over the weekend, he is free to call the hospital and I will walk him through adjustments. Resume empagliflozin 10 mg daily. Follow- up with PCP in the next 2 to 4 weeks with further management. #Hypertension # Bilateral lower extremity edema, likely venous insufficiency - Pressures stable. Continue home regimen. continue triamterene/HCTZ 1 tablet daily, continue valsartan 160 mg daily, continue potassium supplementation, continue metolazone 5 mg daily, continue metoprolol succinate 100 mg daily, hold amlodipine and Lasix pending follow-up with PCP. #Hyperlipidemia - Continue Crestor 40 mg daily. #Diabetic Foot Changes with Onychomycosis -Feet stable. Continue with plan from previous admission. Normal ABIs last admission. Follow-up as an outpatient with podiatry. Home health is seeing him at this time for Un[place] boots. Resume home health at discharge. Exam Data for Last 24 hours Vital signs and Labs for Last 24 Hours: Temp Pulse Resp BP Pulse Ox O2 Del Method 98 F 75 16 117/62 97 Room Air 01/28/25 08:00 01/28/25 08:00 01/28/25 08:00 01/28/25 08:00 01/28/25 08:00 01/28/25 09:00 Laboratory Results - last 24 hr 01/27/25 17:25: Urine Color Yellow, Urine Appearance Clear, Urine pH 6.0, Ur Specific [place] 1.010, Urine Protein Negative, Urine Glucose (UA) >=1000, Urine Ketones Negative, Urine Blood Negative, Urine Nitrate Negative, Urine Bilirubin Negative, Urine Urobilinogen 0.2, Ur Leukocyte Esterase Negative, Urine RBC 5- 10, Urine WBC 10-20, Ur Squamous Epith Cells 10-20, Urine Bacteria 1+, Urine Mucus 1+ 01/27/25 17:56: WBC 10.7, RBC 3.64 L, Hgb 11.8 L, Hct 34.9 L, MCV 95.9 H, MCH 32.4 H, MCHC 33.8, RDW 12.5, Plt Count 360, MPV 9.6, Neut % (Auto) 77.4, Lymph % (Auto) 12.9, [place] % (Auto) 7.9, Eos % (Auto) 1.2, Baso % (Auto) 0.3, Neut # (Auto) 8.3 H, Lymph # (Auto) 1.4, [place] # (Auto) 0.8, Eos # (Auto) 0.1, Baso # (Auto) 0.0, PT 10.1, INR 0.89 L, APTT 23.4, VBG pH 7.41, VBG pCO2 44.3, VBG pO2 53.5 H, VBG HCO3 27.2, VBG Total CO2 28.6 H, VBG O2 Saturation 87.9 H, VBG Base Excess 2.5 H, VBG Lactic Acid 1.8, Sodium 131 L, Potassium 4.2, Chloride 94 L, Carbon Dioxide 31 H, Anion Gap 10.2, BUN 30 H, Creatinine 1.70 H, Estimated Creat Clear 44, Estimated GFR 41 L, Est GFR ( Amer) 50 L, Glucose 469 H*, Hemoglobin A1c 8.5 H, Lactate 1.6, Calcium 9.2, Magnesium 2.0, Total Bilirubin 0.3, AST 27, ALT 29, Alkaline Phosphatase 161 H, Troponin I < 0.01, NT-Pro-B Natriuret Pep 121, Total Protein 6.6, Albumin 4.1, Globulin 2.5, Albumin/Gl obulin Ratio 1.6, Procalcitonin 0.220, Acetone Level None detected 01/27/25 21:04: Troponin I < 0.01 01/28/25 00:08: Troponin I < 0.01 01/28/25 00:33: POC Glucose 257 H 01/28/25 05:38: POC Glucose 345 H* 01/28/25 07:35: WBC 10.3, RBC 3.73 L, Hgb 12.1 L, Hct 35.9 L, MCV 96.2 H, MCH 32.4 H, MCHC 33.7, RDW 12.2, Plt Count 340, MPV 9.6, Neut % (Auto) 75.9, Lymph % (Auto) 14.2, [place] % (Auto) 6.9, Eos % (Auto) 2.0, Baso % (Auto) 0.5, Neut # (Auto) 7.8, Lymph # (Auto) 1.5, [place] # (Auto) 0.7, Eos # (Auto) 0.2, Baso # (Auto) 0.1, Sodium 136, Potassium 3.8, Chloride 102, Carbon Dioxide 28, Anion Gap 9.8, BUN 25 H, Creatinine 1.30 H D, Estimated Creat Clear 99, Estimated GFR 56 L, Est GFR ( Amer) 67 D, Glucose 297 H D, Calcium 9.9, Magnesium 2.3 D, Total Bilirubin 0.4, AST 34 D, ALT 31, Alkaline Phosphatase 100, Total Protein 6.7, Albumin 4.0, Globulin 2.7, Albumin/Globulin Ratio 1.5 01/28/25 11:36: POC Glucose 261 H I & O for Last 24 hours: Intake & Output 01/25/25 01/26/25 01/27/25 01/28/25 23:59 23:59 23:59 23:59 Intake Total 390 / 390 Output Total 0 / 0 Balance 390 / 390 Weight 69.4 kg 119.833 kg Constitutional Constitutional: no acute distress, obese, chronically ill appearing and cooperative *Routine HEENT Exam Head: Present normocephalic Eye: Present EOMI and PERRL ENT: Present mucous membranes moist *Routine Neck Exam Neck: Present supple; Absent lymphadenopathy *Routine Respiratory Exam Respiratory: Present CTA bilaterally; Absent rhonchi, wheezes or crackles *Routine Cardiovascular Exam Cardiovascular: Present RRR *Routine Abdominal Exam Abdominal: Present soft and normoactive bowel sounds; Absent tenderness *Routine Rectal Exam Patient deferred: visual exam *Routine Exam Patient deferred: penile exam *Routine Extremities Exam Extremities: Present edema (bilateral ankles, 1+); Absent cyanosis or clubbing *Routine Skin Exam Skin: Present intact and warm; Absent rash *Routine Neurological Exam Neurological: Present alert, oriented X3 and moving all extremities; Absent altered mental status Results Data Completed and Pending Labs on day of discharge: Labs from last 24 hours 01/28/25 01/28/25 01/28/25 11:36 07:35 05:38 WBC 10.3 RBC 3.73 L Hgb 12.1 L Hct 35.9 L MCV 96.2 H MCH 32.4 H MCHC 33.7 RDW 12.2 Plt Count 340 MPV 9.6 Neut % (Auto) 75.9 Lymph % (Auto) 14.2 [place] % (Auto) 6.9 Eos % (Auto) 2.0 Baso % (Auto) 0.5 Neut # (Auto) 7.8 Lymph # (Auto) 1.5 [place] # (Auto) 0.7 Eos # (Auto) 0.2 Baso # (Auto) 0.1 PT INR APTT VBG pH VBG pCO2 VBG pO2 VBG HCO3 VBG Total CO2 VBG O2 Saturation VBG Base Excess VBG Lactic Acid Sodium 136 Potassium 3.8 Chloride 102 Carbon Dioxide 28 Anion Gap 9.8 BUN 25 H Creatinine 1.30 H D Estimated Creat Clear 99 Estimated GFR 56 L Est GFR ( Amer) 67 D Glucose 297 H D POC Glucose 261 H 345 H* Hemoglobin A1c Lactate Calcium 9.9 Magnesium 2.3 D Total Bilirubin 0.4 AST 34 D ALT 31 Alkaline Phosphatase 100 Troponin I NT-Pro-B Natriuret Pep Total Protein 6.7 Albumin 4.0 Globulin 2.7 Albumin/Globulin Ratio 1.5 Procalcitonin Urine Color Urine Appearance Urine pH Ur Specific [place] Urine Protein Urine Glucose (UA) Urine Ketones Urine Blood Urine Nitrate Urine Bilirubin Urine Urobilinogen Ur Leukocyte Esterase Urine RBC Urine WBC Ur Squamous Epith Cells Urine Bacteria Urine Mucus Acetone Level 01/28/25 01/28/25 01/27/25 00:33 00:08 21:04 WBC RBC Hgb Hct MCV MCH MCHC RDW Plt Count MPV Neut % (Auto) Lymph % (Auto) [place] % (Auto) Eos % (Auto) Baso % (Auto) Neut # (Auto) Lymph # (Auto) [place] # (Auto) Eos # (Auto) Baso # (Auto) PT INR APTT VBG pH VBG pCO2 VBG pO2 VBG HCO3 VBG Total CO2 VBG O2 Saturation VBG Base Excess VBG Lactic Acid Sodium Potassium Chloride Carbon Dioxide Anion Gap BUN Creatinine Estimated Creat Clear Estimated GFR Est GFR ( Amer) Glucose POC Glucose 257 H Hemoglobin A1c Lactate Calcium Magnesium Total Bilirubin AST ALT Alkaline Phosphatase Troponin I < 0.01 < 0.01 NT-Pro-B Natriuret Pep Total Protein Albumin Globulin Albumin/Globulin Ratio Procalcitonin Urine Color Urine Appearance Urine pH Ur Specific [place] Urine Protein Urine Glucose (UA) Urine Ketones Urine Blood Urine Nitrate Urine Bilirubin Urine Urobilinogen Ur Leukocyte Esterase Urine RBC Urine WBC Ur Squamous Epith Cells Urine Bacteria Urine Mucus Acetone Level 01/27/25 01/27/25 17:56 17:25 WBC 10.7 RBC 3.64 L Hgb 11.8 L Hct 34.9 L MCV 95.9 H MCH 32.4 H MCHC 33.8 RDW 12.5 Plt Count 360 MPV 9.6 Neut % (Auto) 77.4 Lymph % (Auto) 12.9 [place] % (Auto) 7.9 Eos % (Auto) 1.2 Baso % (Auto) 0.3 Neut # (Auto) 8.3 H Lymph # (Auto) 1.4 [place] # (Auto) 0.8 Eos # (Auto) 0.1 Baso # (Auto) 0.0 PT 10.1 INR 0.89 L APTT 23.4 VBG pH 7.41 VBG pCO2 44.3 VBG pO2 53.5 H VBG HCO3 27.2 VBG Total CO2 28.6 H VBG O2 Saturation 87.9 H VBG Base Excess 2.5 H VBG Lactic Acid 1.8 Sodium 131 L Potassium 4.2 Chloride 94 L Carbon Dioxide 31 H Anion Gap 10.2 BUN 30 H Creatinine 1.70 H Estimated Creat Clear 44 Estimated GFR 41 L Est GFR ( Amer) 50 L Glucose 469 H* POC Glucose Hemoglobin A1c 8.5 H Lactate 1.6 Calcium 9.2 Magnesium 2.0 Total Bilirubin 0.3 AST 27 ALT 29 Alkaline Phosphatase 161 H Troponin I < 0.01 NT-Pro-B Natriuret Pep 121 Total Protein 6.6 Albumin 4.1 Globulin 2.5 Albumin/Globulin Ratio 1.6 Procalcitonin 0.220 Urine Color Yellow Urine Appearance Clear Urine pH 6.0 Ur Specific [place] 1.010 Urine Protein Negative Urine Glucose (UA) >=1000 Urine Ketones Negative Urine Blood Negative Urine Nitrate Negative Urine Bilirubin Negative Urine Urobilinogen 0.2 Ur Leukocyte Esterase Negative Urine RBC 5-10 Urine WBC 10-20 Ur Squamous Epith Cells 10-20 Urine Bacteria 1+ Urine Mucus 1+ Acetone Level None detected DS: Diagnosis Discharge Diagnosis (1) Type 1 diabetes mellitus with hyperglycemia: Status: Acute Code(s): E10.65 - Type 1 diabetes mellitus with hyperglycemia (2) Edema of both feet: Status: Acute Code(s): R60.0 - Localized edema (3) Hyperglycemia: Status: Acute Code(s): R73.9 - Hyperglycemia, unspecified Meds Home Medications and Allergies Home Medications ?Medication ?Instructions ?Recorded ?Confirmed ?Type rosuvastatin 40 mg tablet 40 mg PO HS 01/26/21 01/27/25 History furosemide 20 mg tablet 20 mg PO DAILY 12/21/22 01/27/25 History allopurinol 300 mg tablet 300 mg PO DAILY 10/14/24 01/27/25 History amlodipine 5 mg tablet 5 mg PO DAILY 10/15/24 01/27/25 History apixaban 5 mg tablet (Eliquis) 5 mg PO BID #30 tabs 10/15/24 01/27/25 Rx ascorbic acid (vitamin C) 500 mg 500 mg PO DAILY 10/15/24 01/27/25 History tablet empagliflozin 10 mg tablet 10 mg PO DAILY 10/15/24 01/27/25 History ferrous gluconate 324 mg (38 mg 324 mg PO DAILY 10/15/24 01/27/25 History iron) tablet metolazone 5 mg tablet 5 mg PO DAILY 10/15/24 01/27/25 History triamterene 37.5 1 tab PO DAILY 10/15/24 01/27/25 History mg-hydrochlorothiazide 25 mg tablet valsartan 160 mg tablet 160 mg PO DAILY 10/15/24 01/27/25 History cholecalciferol (vitamin D3) 50 100 mcg PO DAILY 01/28/25 01/28/25 History mcg (2,000 unit) capsule (Vitamin D3) insulin human U-100 NPH-regulr 20 unit (0.2 mL) SQ BIDL 30 days 01/28/25 01/27/25 Rx 70-30 mix 100 unit/mL subcutaneous #0 mL susp (Humulin 70/30 U-100 Insulin) metformin 500 mg tablet,extended 500 mg PO DAILY 01/28/25 01/28/25 History release 24 hr metoprolol succinate 25 mg 12.5 mg PO DAILY 01/28/25 01/28/25 History tablet,extended release 24 hr (Toprol XL) potassium chloride 10 mEq 20 meq PO TID 01/28/25 01/28/25 History tablet,extended release New Prescriptions to Start Prescriptions: Allergies Allergy/AdvReac Type Severity Reaction Status Date / Time No Known Allergies Allergy Unverified 10/15/24 07:22 Discharge Plan Disposition Patient Disposition: Home Health Service Condition: Good Discharge Order Discharge Orders: Discharge Order (Routine); Ordered 01/28/25 Ordered By: Chato Alejandra Follow up Plan Follow up with: Thomsa Romero MD [Staff Physician] - Enter time for follow up (please call for follow up appointment. ) Prescriptions/Medication Reconciliation: Continued rosuvastatin 40 mg tablet 40 mg PO HS furosemide 20 mg tablet 20 mg PO DAILY Patient Comments: TAKE 1 TABLET BY MOUTH EVERY DAY allopurinol 300 mg tablet 300 mg PO DAILY Patient Comments: TAKE 1 TABLET BY MOUTH DAILY metolazone 5 mg Tablet 5 mg PO DAILY amlodipine 5 mg Tablet 5 mg PO DAILY ascorbic acid (vitamin C) 500 mg Tablet 500 mg PO DAILY triamterene-hydrochlorothiazid 37.5-25 mg Tablet 1 tab PO DAILY valsartan 160 mg Tablet 160 mg PO DAILY ferrous gluconate 324 mg (38 mg iron) Tablet 324 mg PO DAILY empagliflozin 10 mg Tablet 10 mg PO DAILY Eliquis 5 mg tablet 5 mg PO BID Qty: 30 1RF Rx Instructions: Take 10 mg twice a day for the next 6 days, then decrease to 5 mg twice a day. potassium chloride 10 mEq Tablet Extended Release 20 meq PO TID metoprolol succinate [Toprol XL] 25 mg Tablet Extended Release 24 Hr 12.5 mg PO DAILY metformin 500 mg Tablet Extended Release 24 Hr 500 mg PO DAILY cholecalciferol (vitamin D3) [Vitamin D3] 50 mcg (2,000 unit) Capsule 100 mcg PO DAILY Changed Humulin 70/30 U-100 Insulin 100 unit/mL (70-30) suspension 20 unit SQ BIDL 30 Days Qty: 0 0RF Patient Comments: ADMINISTER 45 UNITS UNDER THE SKIN EVERY MORNING Problem Reconciliation Problems Reviewed?: Yes Patient Discharge Instructions ACTIVITY: Continue current activity DIET: continue same diet Patient Instructions: DI for Hyperglycemia -- Adult, Edema Print Language: Czech Providers Primary Care Provider: Provider,Referral Admit Provider: Chato Alejandra Attending Provider: Chato Alejandra
--- NOTE | 2025-01-29 10:54 | SW/DCPLANNER ---
Spoke with patient on the phone. Patient stated that he is doing good. Patient stated that he has called and scheduled his appointment with his primary care provider for February 02. Patient stated that they did not prescribe him any new medicine and that they just switched his insulin. Patient stated that he has no concerns or questions at this time. [place]
[2025-01-31 05:19] LABS: POC Glucose,Bedside 479 (70-110)
== END 2025-01-28 12:59 | disposition home health service (06) ==
LOC: ER 17:36 → 2ND 20:12
PROVIDERS: Nurse Practitioner Family; Admitting Provider Internal Medicine Adolescent Medicine; Emergency Provider Emergency Medicine; Visit Provider Internal Medicine Adolescent Medicine
DX: E11.65 Type 2 diabetes mellitus with hyperglycemia (principal); R60.0 Localized edema; I89.0 Lymphedema, not elsewhere classified; E78.5 Hyperlipidemia, unspecified; T38.3X5A Adverse effect of insulin and oral hypoglycemic [antidiabetic] drugs, initial encounter; Z86.711 Personal history of pulmonary embolism; Z79.01 Long term (current) use of anticoagulants; B35.1 Tinea unguium
CPT/HCPCS: 36415; 80053; 81001; 82009; 82803; 82962; 83036; 83605; 83735; 83880; 84145; 84484; 85025; 85610; 85730; 87040; 87086; 87088; 87186; 93005; 99291; G0378; J0696; J1650; J7030